=== PATIENT | male | born 1965 | race Caucasian/White ===

== ENCOUNTER 2017-11-11 12:48 | Inpatient (IN) | payer BC, SELFPAY ==
[2017-11-11] VITALS (12 sets, daily range): BP systolic 108–161; BP diastolic 75–119; PULSE 105–125; RESP 16–24; TEMP 37.4–38.6; O2SAT 92–98; BMI 33.0; BMI 32.3; BMI 32.4
--- NOTE | 2017-11-11 13:08 | EKG12_ITS ---
Test Reason : CP Blood Pressure : / mmHG Vent. Rate : 119 BPM Atrial Rate : 119 BPM P-R Int : 144 ms QRS Dur : 088 ms QT Int : 312 ms P-R-T Axes : 030 065 011 degrees QTc Int : 438 ms Sinus tachycardia Otherwise normal ECG Confirmed by ALE ENGLISH, SHAN ([id number]), newspaper or periodical editor WILMA BARBOZA ([id number] on 11/15/2017 3:17:05 PM Referred By: JOSE/CHERYL Confirmed By:SHAN AGUILERA MD
--- NOTE | 2017-11-11 13:08 | CT_ITS ---
STUDY: CT BRAIN WITHOUT CONTRAST REASON FOR EXAM: Male, 52 years old. Headache and neck pain RADIATION DOSAGE (If Supplied By Facility): CTDIvol = ( 44.99 ) mGy, DLP = ( 745.49 ) mGycm TECHNIQUE: Transaxial CT imaging of the brain was performed without administration of intravenous contrast material. Individualized dose optimization techniques were used for this CT. COMPARISON: None. FINDINGS: Normal soft tissue structures. Normal calvarium. Normal size ventricles and extra-axial spaces for the patient's age. Normal white matter tracts of the cerebral hemispheres. Normal basal ganglia and thalami. Normal brainstem. Normal cerebellum. There is no intracranial hemorrhage. There are no findings of an acute ischemic infarction. Normal visualized paranasal sinuses. CT/Brain/Head without Contrast IMPRESSION: Age-related changes, no acute findings Electronically Signed: Gary Majano MD at 14:09 EDT , Service support ,
--- NOTE | 2017-11-11 13:10 | RAD_ITS ---
STUDY: X-RAY CHEST REASON FOR EXAM: Male, 52 years old. Acute chest pain TECHNIQUE: Single AP portable view of the chest. COMPARISON: None. FINDINGS: EKG leads overlie the chest The lungs are clear and expanded. There is no demonstrated pleural abnormality. Normal size heart. Normal mediastinum and zenia. Normal visualized pulmonary arteries. Normal visualized aortic arch and descending thoracic aorta. Normal visualized thoracic spine. Normal visualized ribs, clavicles, and shoulders. There is no demonstrated abnormality of the visualized soft tissue structures of the upper abdomen. RAD/Chest 1 View (Portable) IMPRESSION: Normal x-ray examination of the chest. Electronically Signed: Gary Majano MD at 13:49 EDT , Service support ,
[2017-11-11] MEDS: Aspirin 81 MG TAB.CHEW 324 MG PO (13:37)
[2017-11-11 13:41] LABS: Absolute Lymphocyte Count 1.41 X10^3/ul (0.83-4.51); Absolute Neutrophil Count 13.6 X10^3/uL (2.0-7.7); Basophil# 0.02 X10^3/uL; Basophil% 0.1 % (0-1); Eosinophil# 0.03 X10^3/uL; Eosinophils% 0.2 % (0-5); Hematocrit 47.9 % (40-54); Hemoglobin 16.5 g/dl (13.0-16.5); Lymphocyte # 1.41 X10^3/ul (4.0); Lymphocyte % 8.6 % (19-41); Mean Corp Hgb Conc 34.4 g/gl (32-36); Mean Corpuscular Volume 89.9 fL (80-94); Mean Platelet Vol. 10.2 fl (6.2-12.0); Monocyte# 1.38 X10^3/uL; Monocyte% 8.4 % (0-10); Neutrophil # 13.59 X10^3/uL (2.7-7.7); Neutrophil % 82.5 % (47-70); Platelet Count 200 K/mm3 (150-450); RBC Distribution Width CV 13.5 % (11.6-14.6); RBC Distribution Width SD 44.7 fl (35.1-43.9); Red Blood Count 5.33 M/mm3 (4.6-6.2); White Blood Count 16.5 K/mm3 (4.4-11.0)
[2017-11-11 13:43] LABS: POSITIVE COUNT NO; POSITIVE DIFFERENTIAL NO; POSITIVE MORPHOLOGY NO
[2017-11-11 13:56] LABS: Anion Gap 3 (5-15); BUN 16 mg/dL (7-18); Calcium,Total 9.1 mg/dL (8.5-10.1); Chloride 105 mmol/L (98-107); Creatinine, Serum 1.07 mg/dL (0.70-1.30); EST Glomerular Filtration Rate 78 mL/min (>60); Est Glom Filt Rate - Afr Amer 94 mL/min (>60); Estimated Creatinine Clearance 85.28 ml/min; Glucose 143 mg/dL (74-106); Potassium 4.6 mmol/L (3.5-5.1); Sodium Level 136 mmol/L (136-145)
--- NOTE | 2017-11-11 14:06 | CT_ITS ---
STUDY: CTA NECK WITH CONTRAST REASON FOR EXAM: Male, 52 years old. HEAD AND NECK PAIN/RADON EXPOSURE/FINGERS NUMB AND PURPLE. RADIATION DOSAGE (If Supplied By Facility): CTDIvol = ( 17.52 ) mGy, DLP = ( 1579.58 ) mGycm TECHNIQUE: CT angiography with multi-detector data acquisition was performed from the aortic arch to the skull base following intravenous administration of 100ML ml of Isovue 370 contrast. MIP images were reconstructed from the axial data set. Post-processing of the angiographic images was performed, with multiplanar reformation and 3D reconstruction. Individualized dose optimization techniques were used for this CT. COMPARISON: None. FINDINGS: AORTIC ARCH: Normal visualized aortic arch. Normal origins of the brachiocephalic, left common carotid, and left subclavian arteries. RIGHT CAROTID ARTERIES: Normal right common carotid artery (CCA). Normal right common carotid bulb. Normal origin of the right internal carotid (ICA) artery without a hemodynamically significant stenosis. Normal visualized cervical portion of the right internal carotid artery. Normal origin of the right external carotid artery (ECA). LEFT CAROTID ARTERIES: Normal left common carotid artery (CCA). Normal left common carotid bulb. Normal origin of the left internal carotid (ICA) artery without a hemodynamically significant stenosis. Normal visualized cervical portion of the left internal carotid artery. Normal origin of the left external carotid artery (ECA). VERTEBRAL ARTERIES: Normal bilateral vertebral arteries. CT/CTA Neck W/WO Contrast IMPRESSION: Normal bilateral cervical carotid and vertebral arteries. Electronically Signed: Marianne Yost MD at 15:47 EDT Tel , Service support ,
--- NOTE | 2017-11-11 14:06 | CT_ITS ---
STUDY: CTA CHEST REASON FOR EXAM: Male, 52 years old. Head and neck pain, fingers numb and purple RADIATION DOSAGE (If Supplied By Facility): CTDIvol = ( 17.52 ) mGy, DLP = ( 1579.58 ) mGycm TECHNIQUE: The examination was performed with the intravenous administration of 100 ml of Isovue 370 contrast material. Post-processing of the angiographic images was performed, with multiplanar reformation and 3D reconstruction. Individualized dose optimization techniques were used for this CT. COMPARISON: 06/11/2014 FINDINGS: Normal enhancement of the main pulmonary artery and right and left pulmonary arteries. There is limited enhancement of the bilateral peripheral pulmonary arteries. There is no demonstrated pulmonary embolism. Normal thoracic aorta and visualized great vessels. There is no demonstrated aortic dissection. Normal heart and pericardium. Normal mediastinum. Normal hilar regions. Normal visualized trachea and bronchi. The lungs are well expanded. Normal pulmonary parenchyma. There is a 4 mm subpleural nodule along the right minor fissure. Normal pleura. Normal chest wall structures. There are degenerative changes of thoracic spine. Normal visualized upper abdomen. CT/CTA Chest W/WO Contrast IMPRESSION: No large or central pulmonary embolus. Somewhat limited enhancement of the peripheral pulmonary arteries. 4 mm subpleural nodule along the minor fissure on the right. This is unchanged from the prior study. Electronically Signed: Polo Gould DO at 15:53 EDT Tel , Service support ,
--- NOTE | 2017-11-11 14:06 | CT_ITS ---
STUDY: CTA OF THE BRAIN REASON FOR EXAM: Male, 52 years old. Pain. Numbness. RADIATION DOSAGE (If Supplied By Facility): CTDIvol = ( 17.52 ) mGy, DLP = ( 1579.58 ) mGycm TECHNIQUE: CT angiography was performed with a multi-detector CT scanner. Data acquisition was obtained from the skull base through the vertex following intravenous administration of intravenous. MIP images were reconstructed from the axial data set. Post-processing of the angiographic images was performed, with multiplanar reformation and 3D reconstruction. Individualized dose optimization techniques were used for this CT. COMPARISON: CT brain 11/11/2017 FINDINGS: Normal bilateral petrous carotid arteries. Normal right cavernous carotid artery with a normal supraclinoid bifurcation. Normal left cavernous carotid artery with a normal supraclinoid bifurcation. Normal right A1 segments of the anterior cerebral artery. Normal left A1 segments of the anterior cerebral artery. Normal intact anterior communicating artery (ACOM). Normal bilateral A2 segments of the anterior cerebral arteries. Normal right M1 and M2 segments of the middle cerebral arteries, with a normal M1 bifurcation. Normal left M1 and M2 segments of the middle cerebral arteries, with a normal M1 bifurcation. Normal right posterior communicating artery (PCOM). Normal left posterior communicating artery (PCOM). Normal bilateral vertebral arteries. Normal basilar artery with a normal basilar bifurcation. The visualized bilateral superior cerebellar (SCA) arteries are normal. Normal bilateral P1, P2 and visualized P3 segments of the posterior cerebral arteries. There is no demonstrated aneurysm of the [place]. There is no demonstrated abnormality of the visualized brain. CT/CTA Head W/WO Contrast IMPRESSION: Normal [place] without a demonstrated aneurysm or hemodynamically significant stenosis. Electronically Signed: Marcelino Tapia, at 16:00 EDT Tel , Service support ,
[2017-11-11] MEDS: Acetaminophen 500 MG Tablet 1000 MG PO (16:23)
--- NOTE | 2017-11-11 16:24 | ED.DCSUM_ITS ---
- ER Visit Summary Date of Service: 11/11/17 Chief Complaint: Multiple complaints History of Present Illness: The patient is a 52 M who presents with multiple complaints. His main complaint on presentation is head pains. He has a history of diabetes and ray nods. He states that last night he had sharp pain in the anterior left side of the neck he then developed a diffuse headache. He states that both of his upper extremities went numb and his hands turned purple. He states the color has returned and he only has occasional paresthesias currently. His neck pain has also resolved. He does still continue to have a headache. He also states that this morning he developed substernal chest pain which was dull and lasted a couple of minutes. That has also since resolved. He denies fevers chills sweats shortness of breath cough abdominal pain nausea vomiting diarrhea or rash. Physical Examination: Temperature 99.4 initial blood pressure 148/119 heart rate 125 pulse ox 96% Moist mucous membranes Heart regular rhythm tachycardia no carotid bruit Lungs are clear Abdomen soft nontender and nondistended Patient has brisk capillary refill of the hands with easily palpable radial pulses Skin is warm and dry Alert and oriented No focal or lateralizing neurological deficits normal strength and sensation. Test Results: EKG shows sinus rhythm at a rate of 119. Laboratory studies returned notable for white blood cell count 16.5 and negative troponin. Chest x -ray was normal. CTA of the chest neck and head are all normal. Emergency Department Course and Treatment: Given patient's initial presentation with chest pain neck pain and neurological symptoms I was concerned for possible vascular cause including aortic and or carotid dissection. CTA of the chest and neck was obtained and because of his neurological symptoms in his upper extremities we did also obtain CT of the head which is all normal. On reevaluation the patient was complaining of feeling hot and felt warm to the touch. A repeat temperature is 101.4 orally. He is now also complaining of diffuse abdominal pain. Repeat abdominal exam he has some diffuse abdominal tenderness but no guarding or rebound. He also now notes dysuria. Given leukocytosis tachycardia and fever he was empirically treated with IV Zosyn. We did add on further laboratory studies including hepatic function lipase and urinalysis. He will need admitted. Treatment Plan: [] Disposition: Admit Impression: Chest pain Headache Abdominal pain Upper extremity paresthesias This note was generated with [facility] dictation software. It may contain incorrect words, spelling, and punctuation that were not noted in review of the chart prior to signing ED Disposition - Plan for ED Patient: Chief Complaint: Chest Pain Referrals: Viktor Parisi [Primary Care Provider] -
[2017-11-11 16:41] LABS: Mucous, Urine 0 SEEN /hpf (<or=2+); Squamous Epithelial Cells - UA 0 SEEN /hpf (0-5)
[2017-11-11 16:46] LABS: Color, Urine Yellow (Yellow); Glucose, Dipstick Normal (Normal); Ketone-Dipstick 5 mg/dl (Negative); Leukocyte Esterase-Dipstick 100 /ul (Negative); Nitrite-Dipstick Positive (Negative); Occult Blood-Urine 10 /ul (Negative); Protein-Dipstick Negative (Negative); Urine Bilirubin Dipstick Negative (Negative); Urine Clarity Cloudy (Clear); Urine Urobilinogen Normal (Normal); Urine pH 6.5 (5.0 - 8.0)
--- NOTE | 2017-11-11 16:53 | CT_ITS ---
STUDY: CT ABDOMEN AND PELVIS WITHOUT CONTRAST REASON FOR EXAM: Male, 52 years old. Abdominal pain. RADIATION DOSAGE (If Supplied By Facility): CTDIvol = ( 20.37 ) mGy, DLP = ( 1048.36 ) mGycm TECHNIQUE: Transaxial images were obtained from the dome of the diaphragm to the symphysis pubis without oral contrast, and without intravenous contrast. Sagittal and coronal images were reconstructed. Individualized dose optimization techniques were used for this CT. COMPARISON: None. FINDINGS: Evaluation of the abdominal viscera is limited in the absence of intravenous contrast. There are no calcified gallstones present. The liver is low in density, consistent with fatty infiltration. The spleen is normal in size. The pancreas demonstrates an unremarkable unenhanced appearance. The adrenal glands are within normal limits. The kidneys are excreting contrast from the prior injection. This obscures evaluation for renal stones. There is no hydronephrosis. Normal visualized stomach. There is no bowel obstruction or inflammation. The appendix is visualized and appears normal. There are postsurgical changes noted from prior bilateral inguinal hernia repair. The aorta is normal in caliber. There is no abdominal or pelvic free air, free fluid, fluid collection or lymphadenopathy. There are no destructive osseous lesions. CT/Abdomen/Pelvis without Cont IMPRESSION: No bowel obstruction or inflammation. Normal appendix. Kidneys are excreting contrast from a prior injection. This obscures evaluation for renal stones. No hydronephrosis. Fatty liver. Electronically Signed: Marcelino Tapia, at 17:55 EDT Tel , Service support ,
[2017-11-11 17:04] LABS: AST(SGOT) 41 U/L (15-37); Alanine Aminotransfer ALT/SGPT 95 U/L (16-61); Albumin, Serum 4.1 g/dL (3.2-5.0); Alkaline Phosphatase 61 U/L (45-117); Globulin 3.8 g/dL (2.2-4.2); Protein, Total 7.9 g/dL (6.4-8.2)
[2017-11-11 17:06] LABS: Bacteria RARE /hpf (None Seen); Red Blood Cells-Urine 0-5 SEEN /hpf (0-5); White Blood Cells 10-25 SEEN /hpf (0-5)
[2017-11-11 17:20] LABS: Lipase 426 U/L (73-393)
[2017-11-11 17:36] LABS: Lactic Acid 1.4 mmol/L (0.4-2.0)
--- NOTE | 2017-11-11 18:41 | PCM.HP.STD ---
Problem List (1) GERD (gastroesophageal reflux disease) Status: Chronic (2) Type 2 diabetes mellitus Status: Chronic History of Present Illness Date of Admission: 11/11/17 Chief Complaint: Multiple complaints. The patient is a 52 year old M with past medical history as mentioned above presented to the medicine because of multiple complaints. His main presenting complaint was left-sided neck pain. This pain started last night around 8 PM, it is in the left side of the neck just below the left ear, sharp pain, 7 out of 10 in severity, lasted for few seconds to 1 minute, no aggravating or relieving factors, associated with dizziness and headache and without other associated symptoms. He mentioned that that pain lasted for a few seconds and he was able to sit down but shortly after, he started to feel dizzy and lightheaded. He denied syncope or presyncope. He mentioned that he has been having intermittent chest pain that has been going on for some time. He was not able to provide more details about that chest pain. He mentioned that whenever he gets the chest pain, he has tingling and numbness of both upper extremities. He denied focal arm or leg weakness. He denied lower extremity numbness or tingling. He denied blurred vision or slurred speech. Also, he complains of vague lower abdominal pain that has been going on for long time. In the emergency department, he had a spike of fever, was tachycardic, blood pressure was slightly elevated and pulse ox maintained on room air. His routine blood work is remarkable for leukocytosis, otherwise normal. His lactic acid was normal. LFT revealed total bilirubin of 1.60 and slightly elevated liver transaminases. Troponin was negative. Lipase was 426. Urinalysis revealed cloudy urine, positive for nitrite, leukocyte esterase and there was 10-25 WBCs and rare bacteria. CT scan brain showed no acute findings. Chest x-ray showed no acute infiltrate, consolidation or effusion. EKG revealed sinus tachycardia, no acute ischemic changes. CTA of the head and neck revealed no evidence of hemodynamically significant vascular disease. CTA of the chest revealed no evidence of PE or dissection. CT scan abdomen and pelvis without contrast showed no acute intra-abdominal pathology, revealed fatty liver, normal pancreas. He is being admitted for acute cystitis with sepsis as well as chest pain and tachycardia. Past Medical History Past Medical History (Chronic Problems): Chronic Problems GERD (gastroesophageal reflux disease) (Chronic) Type 2 diabetes mellitus (Chronic) Allergies No Known Allergies Allergy (Verified 06/14/14 15:37) Home Medications: Ambulatory Orders Medication Instructions Recorded Omeprazole [Prilosec] 20 mg PO BID 06/11/14 Metformin HCl [Glucophage] 500 mg PO DAILY #30 tablet 07/07/14 Surgical History: herniorrhaphy Psychiatric History: No pertinent psych hx Lives: Spouse/ Significant Other Smoking Status: Never smoker Alcohol: None Drugs: None - *Family History Maternal History Items: No pertinent history Paternal History Items: No pertinent history Review of Systems Constitutional: Reports: Fever. Denies: Anorexia, Chills, Weakness Eyes: Denies: Blurred vision, Double vision, Drainage, Redness HEENT: Denies: Difficulty Hearing, Ear Pain, Eye Pain, Nasal Congestion, Sore Throat Cardiovascular: Reports: Chest Pain, Light Headedness. Denies: Chest Pressure, Edema, Heaviness, Orthopnea, Paroxysmal Noc. Dyspnea, Syncope Respiratory: Denies: Cough, Hemoptysis, Pleuritic Pain, Shortness of Breath, Sputum production, Wheezing Gastrointestinal: Reports: Abdominal Pain. Denies: Constipation, Diarrhea, Nausea, Vomiting Genitourinary: Reports: Dysuria. Denies: Frequency, Hematuria Musculoskeletal: Reports: Neck Pain. Denies: Arm Pain, Back Pain, Foot Pain Skin: Denies: Dryness, Rash Neurological: Reports: Headaches, Numbness, Tingling. Denies: Balance problems, Double vision, Change in Speech, Slurred speech, Confusion, Focal weakness Psychiatric: Denies: Anxiety, Depression Endocrine: Denies: Change in Body Habitus, Polydipsia VTE Information - Inpt Only VTE Present on Admission: No VTE Mechan Device Prophylaxis: None VTE Pharm Prophylaxis ordered?: Yes - Physical Exam General: Alert, Oriented x3, Cooperative, No apparent distress HEENT: Atraumatic, PERRLA, EOMI Oral: Moist Mucosa, No Gingival or Mucosal Lesions/ Ulcerations Neck: Supple, No JVD, Negative Carotid Bruits, Trachea Midline, Thyroid Normal Size and Texture Lungs: Clear to auscultation, No rhonchi, No wheeze, No rales, Diminished Cardiovascular: Regular rate, Regular Rhythm, Normal S1, Normal S2, No murmurs, PMI Normal, Tachycardic Abdomen: Bowel Sounds Present, Soft, Non Tender, Non-Distended, No Hepato-splenomegaly Extremities: No clubbing, No cyanosis, No edema Skin: No rashes, No breakdown Lymphatic: No Cervical, Supraclavicular, or Inguinal Adenopathy Neurological: Cranial nerves II-XII grossly intact, Motor Exam 5/5 strength throughout Psych/Mental Status: Normal Affect, Appropriate, Alert and oriented to time, place, person, mood and affect Vital Signs Temp Pulse Resp BP Pulse Ox 101.4 F H 109 H 20 H 108/78 94 11/11/17 16:18 11/11/17 18:33 11/11/17 18:33 11/11/17 18:33 11/11/17 18:33 Oxygen Delivery Method Room Air Weight: 230 lb Body Mass Index (BMI) 33.0 Finger Stick Blood Glucose 139 Laboratory Tests Past 24 Hrs 11/11/17 11/11/17 11/11/17 13:35 13:35 13:35 WBC 16.5 H RBC 5.33 Hgb 16.5 Hct 47.9 MCV 89.9 MCH 31.0 MCHC 34.4 RDW 13.5 RDW Differential 44.7 H Plt Count 200 MPV 10.2 Immature Gran % (Auto) 0.200 Neut % (Auto) 82.5 H Lymph % (Auto) 8.6 L [place] % (Auto) 8.4 Eos % (Auto) 0.2 Baso % (Auto) 0.1 Absolute Neuts (auto) 13.6 H Absolute Lymphs (auto) 1.41 Total Counted Not Reportable Sodium 136 Potassium 4.6 Chloride 105 Carbon Dioxide 28.0 Anion Gap 3 L BUN 16 Creatinine 1.07 Estim Creat Clear Calc 85.28 Est GFR (MDRD) Af Amer 94 Est GFR (MDRD) Non-Af 78 BUN/Creatinine Ratio 15.0 Glucose 143 H Lactic Acid Calcium 9.1 Total Bilirubin 1.60 H Direct Bilirubin 0.30 AST 41 H ALT 95 H Alkaline Phosphatase 61 Troponin I < 0.02 Total Protein 7.9 Albumin 4.1 Globulin 3.8 Lipase Urine Color Urine Clarity Urine pH Ur Specific [place] Urine Protein Urine Glucose (UA) Urine Ketones Urine Occult Blood Urine Nitrite Urine Bilirubin Urine Urobilinogen Ur Leukocyte Esterase Urine RBC Urine WBC Ur Squamous Epith Cells Urine Bacteria Urine Mucus 11/11/17 11/11/17 11/11/17 13:35 16:34 17:00 WBC RBC Hgb Hct MCV MCH MCHC RDW RDW Differential Plt Count MPV Immature Gran % (Auto) Neut % (Auto) Lymph % (Auto) [place] % (Auto) Eos % (Auto) Baso % (Auto) Absolute Neuts (auto) Absolute Lymphs (auto) Total Counted Sodium Potassium Chloride Carbon Dioxide Anion Gap BUN Creatinine Estim Creat Clear Calc Est GFR (MDRD) Af Amer Est GFR (MDRD) Non-Af BUN/Creatinine Ratio Glucose Lactic Acid 1.4 Calcium Total Bilirubin Direct Bilirubin AST ALT Alkaline Phosphatase Troponin I Total Protein Albumin Globulin Lipase 426 H Urine Color Yellow Urine Clarity Cloudy Urine pH 6.5 Ur Specific [place] 1.010 Urine Protein Negative Urine Glucose (UA) Normal Urine Ketones 5 H Urine Occult Blood 10 H Urine Nitrite Positive H Urine Bilirubin Negative Urine Urobilinogen Normal Ur Leukocyte Esterase 100 H Urine RBC 0-5 SEEN Urine WBC 10-25 SEEN Ur Squamous Epith Cells 0 SEEN Urine Bacteria RARE Urine Mucus 0 SEEN Clinical Impression(s) from Imaging Studies Brain CT 11/11/17 13:08 IMPRESSION: Age-related changes, no acute findings Electronically Signed: Gary Majano MD at 14:09 EDT , Service support , Chest X-Ray 11/11/17 13:10 IMPRESSION: Normal x-ray examination of the chest. Electronically Signed: Gary Majano MD at 13:49 EDT , Service support , Chest CTA 11/11/17 14:06 IMPRESSION: No large or central pulmonary embolus. Somewhat limited enhancement of the peripheral pulmonary arteries. 4 mm subpleural nodule along the minor fissure on the right. This is unchanged from the prior study. Electronically Signed: Polo Gould DO at 15:53 EDT Tel , Service support , Head CTA 11/11/17 14:06 IMPRESSION: Normal [place] without a demonstrated aneurysm or hemodynamically significant stenosis. Electronically Signed: Marcelino Tapia at 16:00 EDT Tel , Service support , Neck CTA 11/11/17 14:06 IMPRESSION: Normal bilateral cervical carotid and vertebral arteries. Electronically Signed: Marianne Yost MD at 15:47 EDT Tel , Service support , Abdomen/Pelvis CT 11/11/17 16:53 IMPRESSION: No bowel obstruction or inflammation. Normal appendix. Kidneys are excreting contrast from a prior injection. This obscures evaluation for renal stones. No hydronephrosis. Fatty liver. Electronically Signed: Marcelino Tapia, at 17:55 EDT Tel , Service support , Assessment/Plan This is a 52 years old male patient presented to the emergency room because of multiple complaints including left-sided neck pain, intermittent chest pain, numbness and tingling of both arms as well as lower abdominal pain and he was found to have acute cystitis with sepsis and is being admitted for evaluation for chest pain. #1 acute cystitis/sepsis: Urinalysis reviewed, patient was febrile and he does have leukocytosis. Lactic acid was normal. He is tachycardic but blood pressure stable. CT scan abdomen and pelvis was unremarkable. Blood cultures done, received 1 dose of IV Zosyn. Plan: Admit to PCU, cardiac monitoring, stat urine culture, IV Rocephin every 12 hours, IV fluids, Tylenol as needed, PT OT evaluation and treatment. #2 Intermittent chest pain/left sided neck pain: It is atypical. EKG revealed sinus tachycardia, no acute ischemic changes. Troponin was negative. CTA chest has been negative for PE or dissection. His only risk factor is diabetes. Plan: Cardiac monitoring, serial cardiac enzymes, fasting lipid profile, daily aspirin, nuclear stress test tomorrow morning if cardiac enzymes are negative. #3 tachycardia: Could be explained by acute cystitis and sepsis. Plan: IV fluids, IV antibiotics, TSH. #4 elevated LFT/lipase: CT scan abdomen revealed fatty liver, no gallstones, normal pancreas and spleen. Total bilirubin is slightly elevated as well as liver transaminases. Direct bilirubin and alkaline phosphatase are normal. Plan: IV fluids, IV pain medication if needed, repeat CMP and lipase tomorrow morning. #5 bilateral upper extremity paresthesia: Vague symptom, unclear etiology. At this time, it is not typical for stroke or TIA because it is bilateral. CT scan brain as well as CTA of the head and neck were unremarkable. At this time, no indication for further workup. If patient symptoms persist, may consider MRI brain. #6 type 2 diabetes mellitus: ADA diet, Accu-Cheks, insulin sliding scale, hold metformin. #7 GERD: Continue PPI. #8 DVT prophylaxis: Subcu Lovenox. This note was generated with [employer] dictation software. It may contain incorrect words, spelling, and punctuation that were not noted in checking the note before signing. Code Visit Inpatient E&M: 78838 Init Hosp L3
--- NOTE | 2017-11-11 18:49 | HP.PCM_ITS ---
Problem List (1) GERD (gastroesophageal reflux disease) Status: Chronic (2) Type 2 diabetes mellitus Status: Chronic History of Present Illness Date of Admission: 11/11/17 Chief Complaint: Multiple complaints. The patient is a 52 year old M with past medical history as mentioned above presented to the medicine because of multiple complaints. His main presenting complaint was left-sided neck pain. This pain started last night around 8 PM, it is in the left side of the neck just below the left ear, sharp pain, 7 out of 10 in severity, lasted for few seconds to 1 minute, no aggravating or relieving factors, associated with dizziness and headache and without other associated symptoms. He mentioned that that pain lasted for a few seconds and he was able to sit down but shortly after, he started to feel dizzy and lightheaded. He denied syncope or presyncope. He mentioned that he has been having intermittent chest pain that has been going on for some time. He was not able to provide more details about that chest pain. He mentioned that whenever he gets the chest pain, he has tingling and numbness of both upper extremities. He denied focal arm or leg weakness. He denied lower extremity numbness or tingling. He denied blurred vision or slurred speech. Also, he complains of vague lower abdominal pain that has been going on for long time. In the emergency department, he had a spike of fever, was tachycardic, blood pressure was slightly elevated and pulse ox maintained on room air. His routine blood work is remarkable for leukocytosis, otherwise normal. His lactic acid was normal. LFT revealed total bilirubin of 1.60 and slightly elevated liver transaminases. Troponin was negative. Lipase was 426. Urinalysis revealed cloudy urine, positive for nitrite, leukocyte esterase and there was 10-25 WBCs and rare bacteria. CT scan brain showed no acute findings. Chest x-ray showed no acute infiltrate, consolidation or effusion. EKG revealed sinus tachycardia, no acute ischemic changes. CTA of the head and neck revealed no evidence of hemodynamically significant vascular disease. CTA of the chest revealed no evidence of PE or dissection. CT scan abdomen and pelvis without contrast showed no acute intra-abdominal pathology, revealed fatty liver, normal pancreas. He is being admitted for acute cystitis with sepsis as well as chest pain and tachycardia. Past Medical History Past Medical History (Chronic Problems): Chronic Problems GERD (gastroesophageal reflux disease) (Chronic) Type 2 diabetes mellitus (Chronic) Allergies No Known Allergies Allergy (Verified 06/14/14 15:37) Home Medications: Ambulatory Orders Medication Instructions Recorded Omeprazole [Prilosec] 20 mg PO BID 06/11/14 Metformin HCl [Glucophage] 500 mg PO DAILY #30 tablet 07/07/14 Surgical History: herniorrhaphy Psychiatric History: No pertinent psych hx Lives: Spouse/ Significant Other Smoking Status: Never smoker Alcohol: None Drugs: None - *Family History Maternal History Items: No pertinent history Paternal History Items: No pertinent history Review of Systems Constitutional: Reports: Fever. Denies: Anorexia, Chills, Weakness Eyes: Denies: Blurred vision, Double vision, Drainage, Redness HEENT: Denies: Difficulty Hearing, Ear Pain, Eye Pain, Nasal Congestion, Sore Throat Cardiovascular: Reports: Chest Pain, Light Headedness. Denies: Chest Pressure, Edema, Heaviness, Orthopnea, Paroxysmal Noc. Dyspnea, Syncope Respiratory: Denies: Cough, Hemoptysis, Pleuritic Pain, Shortness of Breath, Sputum production, Wheezing Gastrointestinal: Reports: Abdominal Pain. Denies: Constipation, Diarrhea, Nausea, Vomiting Genitourinary: Reports: Dysuria. Denies: Frequency, Hematuria Musculoskeletal: Reports: Neck Pain. Denies: Arm Pain, Back Pain, Foot Pain Skin: Denies: Dryness, Rash Neurological: Reports: Headaches, Numbness, Tingling. Denies: Balance problems , Double vision, Change in Speech, Slurred speech, Confusion, Focal weakness Psychiatric: Denies: Anxiety, Depression Endocrine: Denies: Change in Body Habitus, Polydipsia VTE Information - Inpt Only VTE Present on Admission: No VTE Mechan Device Prophylaxis: None VTE Pharm Prophylaxis ordered?: Yes - Physical Exam General: Alert, Oriented x3, Cooperative, No apparent distress HEENT: Atraumatic, PERRLA, EOMI Oral: Moist Mucosa, No Gingival or Mucosal Lesions/ Ulcerations Neck: Supple, No JVD, Negative Carotid Bruits, Trachea Midline, Thyroid Normal Size and Texture Lungs: Clear to auscultation, No rhonchi, No wheeze, No rales, Diminished Cardiovascular: Regular rate, Regular Rhythm, Normal S1, Normal S2, No murmurs, PMI Normal, Tachycardic Abdomen: Bowel Sounds Present, Soft, Non Tender, Non-Distended, No Hepato- splenomegaly Extremities: No clubbing, No cyanosis, No edema Skin: No rashes, No breakdown Lymphatic: No Cervical, Supraclavicular, or Inguinal Adenopathy Neurological: Cranial nerves II-XII grossly intact, Motor Exam 5/5 strength throughout Psych/Mental Status: Normal Affect, Appropriate, Alert and oriented to time, place, person, mood and affect Vital Signs Temp Pulse Resp BP Pulse Ox 101.4 F H 109 H 20 H 108/78 94 11/11/17 16:18 11/11/17 18:33 11/11/17 18:33 11/11/17 18:33 11/11/17 18:33 Oxygen Delivery Method Room Air Weight: 230 lb Body Mass Index (BMI) 33.0 Finger Stick Blood Glucose 139 Laboratory Tests Past 24 Hrs 11/11/17 11/11/17 11/11/17 13:35 13:35 13:35 WBC 16.5 H RBC 5.33 Hgb 16.5 Hct 47.9 MCV 89.9 MCH 31.0 MCHC 34.4 RDW 13.5 RDW Differential 44.7 H Plt Count 200 MPV 10.2 Immature Gran % (Auto) 0.200 Neut % (Auto) 82.5 H Lymph % (Auto) 8.6 L [place] % (Auto) 8.4 Eos % (Auto) 0.2 Baso % (Auto) 0.1 Absolute Neuts (auto) 13.6 H Absolute Lymphs (auto) 1.41 Total Counted Not Reportable Sodium 136 Potassium 4.6 Chloride 105 Carbon Dioxide 28.0 Anion Gap 3 L BUN 16 Creatinine 1.07 Estim Creat Clear Calc 85.28 Est GFR (MDRD) Af Amer 94 Est GFR (MDRD) Non-Af 78 BUN/Creatinine Ratio 15.0 Glucose 143 H Lactic Acid Calcium 9.1 Total Bilirubin 1.60 H Direct Bilirubin 0.30 AST 41 H ALT 95 H Alkaline Phosphatase 61 Troponin I < 0.02 Total Protein 7.9 Albumin 4.1 Globulin 3.8 Lipase Urine Color Urine Clarity Urine pH Ur Specific [place] Urine Protein Urine Glucose (UA) Urine Ketones Urine Occult Blood Urine Nitrite Urine Bilirubin Urine Urobilinogen Ur Leukocyte Esterase Urine RBC Urine WBC Ur Squamous Epith Cells Urine Bacteria Urine Mucus 11/11/17 11/11/17 11/11/17 13:35 16:34 17:00 WBC RBC Hgb Hct MCV MCH MCHC RDW RDW Differential Plt Count MPV Immature Gran % (Auto) Neut % (Auto) Lymph % (Auto) [place] % (Auto) Eos % (Auto) Baso % (Auto) Absolute Neuts (auto) Absolute Lymphs (auto) Total Counted Sodium Potassium Chloride Carbon Dioxide Anion Gap BUN Creatinine Estim Creat Clear Calc Est GFR (MDRD) Af Amer Est GFR (MDRD) Non-Af BUN/Creatinine Ratio Glucose Lactic Acid 1.4 Calcium Total Bilirubin Direct Bilirubin AST ALT Alkaline Phosphatase Troponin I Total Protein Albumin Globulin Lipase 426 H Urine Color Yellow Urine Clarity Cloudy Urine pH 6.5 Ur Specific [place] 1.010 Urine Protein Negative Urine Glucose (UA) Normal Urine Ketones 5 H Urine Occult Blood 10 H Urine Nitrite Positive H Urine Bilirubin Negative Urine Urobilinogen Normal Ur Leukocyte Esterase 100 H Urine RBC 0-5 SEEN Urine WBC 10-25 SEEN Ur Squamous Epith Cells 0 SEEN Urine Bacteria RARE Urine Mucus 0 SEEN Clinical Impression(s) from Imaging Studies Brain CT 11/11/17 13:08 IMPRESSION: Age-related changes, no acute findings Electronically Signed: Gary Majano MD at 14:09 EDT , Service support , Chest X-Ray 11/11/17 13:10 IMPRESSION: Normal x-ray examination of the chest. Electronically Signed: Gary Majano MD at 13:49 EDT , Service support , Chest CTA 11/11/17 14:06 IMPRESSION: No large or central pulmonary embolus. Somewhat limited enhancement of the peripheral pulmonary arteries. 4 mm subpleural nodule along the minor fissure on the right. This is unchanged from the prior study. Electronically Signed: Polo Gould DO at 15:53 EDT Tel , Service support , Head CTA 11/11/17 14:06 IMPRESSION: Normal ute of [place] without a demonstrated aneurysm or hemodynamically significant stenosis. Electronically Signed: Marcelino Tapia at 16:00 EDT Tel , Service support , Neck CTA 11/11/17 14:06 IMPRESSION: Normal bilateral cervical carotid and vertebral arteries. Electronically Signed: Marianne Yost MD at 15:47 EDT Tel , Service support , Abdomen/Pelvis CT 11/11/17 16:53 IMPRESSION: No bowel obstruction or inflammation. Normal appendix. Kidneys are excreting contrast from a prior injection. This obscures evaluation for renal stones. No hydronephrosis. Fatty liver. Electronically Signed: Marcelino Tapia, at 17:55 EDT Tel , Service support , Assessment/Plan This is a 52 years old male patient presented to the emergency room because of multiple complaints including left-sided neck pain, intermittent chest pain, numbness and tingling of both arms as well as lower abdominal pain and he was found to have acute cystitis with sepsis and is being admitted for evaluation for chest pain. #1 acute cystitis/sepsis: Urinalysis reviewed, patient was febrile and he does have leukocytosis. Lactic acid was normal. He is tachycardic but blood pressure stable. CT scan abdomen and pelvis was unremarkable. Blood cultures done, received 1 dose of IV Zosyn. Plan: Admit to PCU, cardiac monitoring, stat urine culture, IV Rocephin every 12 hours, IV fluids, Tylenol as needed, PT OT evaluation and treatment. #2 Intermittent chest pain/left sided neck pain: It is atypical. EKG revealed sinus tachycardia, no acute ischemic changes. Troponin was negative. CTA chest has been negative for PE or dissection. His only risk factor is diabetes. Plan: Cardiac monitoring, serial cardiac enzymes, fasting lipid profile, daily aspirin, nuclear stress test tomorrow morning if cardiac enzymes are negative. #3 tachycardia: Could be explained by acute cystitis and sepsis. Plan: IV fluids, IV antibiotics, TSH. #4 elevated LFT/lipase: CT scan abdomen revealed fatty liver, no gallstones, normal pancreas and spleen. Total bilirubin is slightly elevated as well as liver transaminases. Direct bilirubin and alkaline phosphatase are normal. Plan: IV fluids, IV pain medication if needed, repeat CMP and lipase tomorrow morning. #5 bilateral upper extremity paresthesia: Vague symptom, unclear etiology. At this time, it is not typical for stroke or TIA because it is bilateral. CT scan brain as well as CTA of the head and neck were unremarkable. At this time , no indication for further workup. If patient symptoms persist, may consider MRI brain. #6 type 2 diabetes mellitus: ADA diet, Accu-Cheks, insulin sliding scale, hold metformin. #7 GERD: Continue PPI. #8 DVT prophylaxis: Subcu Lovenox. This note was generated with Octmami dictation software. It may contain incorrect words, spelling, and punctuation that were not noted in checking the note before signing. Code Visit Inpatient E&M: 92995 Init Hosp L3
[2017-11-11] MEDS: 0.9% Normal Saline 1,000 ML 100 ML IV (20:34)
[2017-11-11 21:13] LABS: Thyroid Stim Hormone (TSH) 0.53 uIU/mL (0.358-3.74)
[2017-11-11] MEDS: Acetaminophen 325 MG Tablet 650 MG PO (21:23)
[2017-11-11 22:41] LABS: Bedside Glucose 176 mg/dL (70-110)
[2017-11-11] MEDS: Ceftriaxone 1 GM/50 ML BAG IV (22:41)
[2017-11-12] VITALS (14 sets, daily range): BP systolic 118–135; BP diastolic 71–79; PULSE 90–111; RESP 14–18; TEMP 36.9–38.3; O2SAT 92–98
[2017-11-12] MEDS: Acetaminophen 325 MG Tablet 650 MG PO ×3 (02:07→20:13)
[2017-11-12 03:22] LABS: Absolute Lymphocyte Count 1.69 X10^3/ul (0.83-4.51); Absolute Neutrophil Count 17.1 X10^3/uL (2.0-7.7); Basophil# 0.02 X10^3/uL; Basophil% 0.1 % (0-1); Differential Indicated SCAN CRITERIA MET; Eosinophil# 0.01 X10^3/uL; Hematocrit 45.3 % (40-54); Hemoglobin 15.6 g/dl (13.0-16.5); Lymphocyte # 1.69 X10^3/ul (4.0); Mean Corp Hgb Conc 34.4 g/gl (32-36); Mean Corpuscular Hgb 31.2 pg (27.0-32.0); Mean Corpuscular Volume 90.6 fL (80-94); Mean Platelet Vol. 10.6 fl (6.2-12.0); Monocyte# 2.15 X10^3/uL; Monocyte% 10.2 % (0-10); Neutrophil % 81.4 % (47-70); POSITIVE COUNT NO; POSITIVE DIFFERENTIAL YES; POSITIVE MORPHOLOGY NO; Platelet Count 173 K/mm3 (150-450); RBC Distribution Width CV 13.7 % (11.6-14.6); RBC Distribution Width SD 45.4 fl (35.1-43.9)
[2017-11-12 04:46] LABS: ALB/GLOB Ratio 0.9 RATIO (0.9-2.4); AST(SGOT) 25 U/L (15-37); Alanine Aminotransfer ALT/SGPT 69 U/L (16-61); Albumin, Serum 3.4 g/dL (3.2-5.0); Alkaline Phosphatase 55 U/L (45-117); Anion Gap 9 (5-15); BUN 13 mg/dL (7-18); BUN/Creat Ratio 13.8 RATIO (10-20); Calcium,Total 8.3 mg/dL (8.5-10.1); Chloride 104 mmol/L (98-107); Cholesterol 162 mg/dL (200); Creatinine, Serum 0.94 mg/dL (0.70-1.30); EST Glomerular Filtration Rate 90 mL/min (>60); Est Glom Filt Rate - Afr Amer 109 mL/min (>60); Estimated Creatinine Clearance 97.07 ml/min; Globulin 3.7 g/dL (2.2-4.2); Glucose 159 mg/dL (74-106); High Density Lipoprotein 47 mg/dL; Lipase 216 U/L (73-393); Potassium 4.1 mmol/L (3.5-5.1); Protein, Total 7.1 g/dL (6.4-8.2); Sodium Level 135 mmol/L (136-145); Triglycerides 70 mg/dL; Very Low Density Lipoprotein 14 mg/dL (5-40)
[2017-11-12 05:22] LABS: International Normalized Ratio 1.2; Prothrombin Time (Protime)PT. 14.7 SECONDS (11.7-14.9)
[2017-11-12 05:23] LABS: Partial Thromboplast Time 28.6 Seconds (24.1-36.2)
[2017-11-12 05:39] LABS: Differential Comment SCANNED
[2017-11-12] MEDS: 0.9% Normal Saline 1,000 ML 100 ML IV ×2 (05:40→17:00)
[2017-11-12] MEDS: Aspirin E.C. 81 MG Tablet PO (05:40)
--- NOTE | 2017-11-12 05:55 | EKG12_ITS ---
Test Reason : AM EKG Blood Pressure : / mmHG Vent. Rate : 100 BPM Atrial Rate : 100 BPM P-R Int : 152 ms QRS Dur : 094 ms QT Int : 332 ms P-R-T Axes : 044 053 019 degrees QTc Int : 428 ms Normal sinus rhythm Normal ECG When compared with ECG of 11-NOV-2017 13:24, MANUAL COMPARISON REQUIRED, DATA IS UNCONFIRMED Confirmed by ALE ENGLISH, SHAN ([id number]), editor sound WILMA BARBOZA ([id number]) on 11/15/2017 3:45:03 PM Referred By: DR RILEY Confirmed By:SHAN AGUILERA MD
[2017-11-12 06:45] LABS: Bedside Glucose 155 mg/dL (70-110)
[2017-11-12] MEDS: Ceftriaxone 1 GM/50 ML BAG IV (09:07)
--- NOTE | 2017-11-12 10:53 | CASEMGMT ---
This RN CM to room to complete CM assessment and pt is out of the dept for Stress test at this time. Will attempt again later. [facility] RN CM
[2017-11-12] MEDS: 0.9% NaCl Peripheral Flush Adult/Peds IV (11:22)
[2017-11-12] MEDS: Pantoprazole Sodium 40 MG Tablet PO (11:26)
[2017-11-12 11:46] LABS: Bedside Glucose 201 mg/dL (70-110)
--- NOTE | 2017-11-12 11:52 | PCM.PROGNOTE ---
<Junie Gould - Last Filed: 11/12/17 12:20> Subjective: Patient seen and examined. Denies further chest pain. Denies fever, chills. Denies GI/ complaints. Denies other complaints. - Physical Exam General: Alert, Oriented x3, Cooperative, No apparent distress HEENT: Atraumatic, PERRLA, EOMI, Normocephalic Neck: Supple, No JVD, Negative Carotid Bruits Lungs: Clear to auscultation, Normal air movement Cardiovascular: Regular Rhythm, Normal S1, Normal S2, No murmurs, Tachycardic Abdomen: Bowel Sounds Present, Soft, Non Tender, Non-Distended Extremities: No clubbing, No cyanosis, No edema, Capillary Refill Less than 3 Seconds Skin: No rashes, No breakdown Musculoskeletal: No Tenderness to Palpation of Joints or Extremities Neurological: Cranial nerves II-XII grossly intact, Neuro grossly intact Psych/Mental Status: Normal Affect, Appropriate Vital Signs Temp Pulse Resp BP Pulse Ox 99.3 F H 104 H 18 124/75 H 97 11/12/17 11:36 11/12/17 11:36 11/12/17 11:36 11/12/17 11:36 11/12/17 11:36 Oxygen Delivery Method Room Air Weight: 102.6 kg Body Mass Index (BMI) 32.3 Intake and Output for Last 24 Hours 11/10/17 11/11/17 11/12/17 23:59 23:59 23:59 Intake Total 803 / 803 583 / 583 Balance 803 / 803 583 / 583 Laboratory Tests Past 24 Hrs 11/11/17 11/12/17 11/12/17 20:15 00:35 00:36 WBC 21.0 H RBC 5.00 Hgb 15.6 Hct 45.3 MCV 90.6 MCH 31.2 MCHC 34.4 RDW 13.7 RDW Differential 45.4 H Plt Count 173 MPV 10.6 Immature Gran % (Auto) 0.300 Neut % (Auto) 81.4 H Lymph % (Auto) 8.0 L [place] % (Auto) 10.2 H Eos % (Auto) 0.0 Baso % (Auto) 0.1 Absolute Neuts (auto) 17.1 H Absolute Lymphs (auto) 1.69 Total Counted Not Reportable Differential Comment SCANNED Diff Path Review May foll PT INR APTT Sodium Potassium Chloride Carbon Dioxide Anion Gap BUN Creatinine Estim Creat Clear Calc Est GFR (MDRD) Af Amer Est GFR (MDRD) Non-Af BUN/Creatinine Ratio Glucose Calcium Total Bilirubin AST ALT Alkaline Phosphatase Troponin I < 0.02 < 0.02 Total Protein Albumin Globulin Albumin/Globulin Ratio Triglycerides Cholesterol LDL Cholesterol VLDL Cholesterol HDL Cholesterol Lipase TSH 0.53 11/12/17 11/12/17 11/12/17 03:56 03:56 09:30 WBC RBC Hgb Hct MCV MCH MCHC RDW RDW Differential Plt Count MPV Immature Gran % (Auto) Neut % (Auto) Lymph % (Auto) [place] % (Auto) Eos % (Auto) Baso % (Auto) Absolute Neuts (auto) Absolute Lymphs (auto) Total Counted Differential Comment Diff Path Review PT 14.7 INR 1.2 APTT 28.6 Sodium 135 L Potassium 4.1 Chloride 104 Carbon Dioxide 22.0 Anion Gap 9 BUN 13 Creatinine 0.94 Estim Creat Clear Calc 97.07 Est GFR (MDRD) Af Amer 109 Est GFR (MDRD) Non-Af 90 BUN/Creatinine Ratio 13.8 Glucose 159 H Calcium 8.3 L Total Bilirubin 1.90 H AST 25 ALT 69 H Alkaline Phosphatase 55 Troponin I < 0.02 < 0.02 Total Protein 7.1 Albumin 3.4 Globulin 3.7 Albumin/Globulin Ratio 0.9 Triglycerides 70 Cholesterol 162 LDL Cholesterol 101 VLDL Cholesterol 14 HDL Cholesterol 47 Lipase 216 TSH POC Glucose 11/12/17 11/12/17 11/11/17 11:29 06:40 22:38 POC Glucose 201 H 155 H 176 H Medical Necessity - Tobacco Use Smoking Status: Never smoker Assessment/Plan Patient is a 52 year old Male admitted 11/11/17 due to multiple complaints including left-sided neck pain, chest pain, dizziness, lower abdominal pain. He has a past medical history of type 2 diabetes mellitus and GERD. 1. Acute cystitis with acute sepsis (criteria: tachycardia, temp 101, WBC 21, +UTI) Urine and blood cultures pending. Continue IV Rocephin. Tylenol as needed for fever. Continue IV fluids. 2. Atypical chest pain-EKG without ST-T changes. Troponin negative. CT of chest negative for PE and dissection. Stress test without evidence of ischemia. 3. Tachycardia-secondary to #1. Improved. 4. Elevated LFT/lipase-lipase now within normal limits. AST/ALT improved. CT of abdomen and pelvis showed no obstruction or inflammation. Fatty liver. No hydronephrosis. Normal pancreas. 5. Type 2 diabetes mellitus-home oral regimen on hold. Accu-Cheks before meals at bedtime with sliding scale insulin. Check hemoglobin A1c. 6. GERD-continue PPI. DVT prophylaxis-Lovenox subcu. This patient was seen by DEANNA Hubbard under the supervision of Dr. Dickey. <Shalini Dickey - Last Filed: 11/12/17 16:59> - Physical Exam Vital Signs Temp Pulse Resp BP Pulse Ox 98.4 F 90 18 125/71 H 98 11/12/17 14:00 11/12/17 14:00 11/12/17 14:00 11/12/17 14:00 11/12/17 14:00 Oxygen Delivery Method Room Air Weight: 102.6 kg Body Mass Index (BMI) 32.3 Intake and Output for Last 24 Hours 11/10/17 11/11/17 11/12/17 23:59 23:59 23:59 Intake Total 803 / 803 1583 / 1583 Balance 803 / 803 1583 / 1583 Laboratory Tests Past 24 Hrs 11/11/17 11/12/17 11/12/17 20:15 00:35 00:35 WBC 21.0 H RBC 5.00 Hgb 15.6 Hct 45.3 MCV 90.6 MCH 31.2 MCHC 34.4 RDW 13.7 RDW Differential 45.4 H Plt Count 173 MPV 10.6 Immature Gran % (Auto) 0.300 Neut % (Auto) 81.4 H Lymph % (Auto) 8.0 L [place] % (Auto) 10.2 H Eos % (Auto) 0.0 Baso % (Auto) 0.1 Absolute Neuts (auto) 17.1 H Absolute Lymphs (auto) 1.69 Total Counted Not Reportable Differential Comment SCANNED Diff Path Review Reviewed PT INR APTT Sodium Potassium Chloride Carbon Dioxide Anion Gap BUN Creatinine Estim Creat Clear Calc Est GFR (MDRD) Af Amer Est GFR (MDRD) Non-Af BUN/Creatinine Ratio Glucose Hemoglobin A1c 7.8 H Calcium Total Bilirubin AST ALT Alkaline Phosphatase Troponin I < 0.02 Total Protein Albumin Globulin Albumin/Globulin Ratio Triglycerides Cholesterol LDL Cholesterol VLDL Cholesterol HDL Cholesterol Lipase TSH 0.53 11/12/17 11/12/17 11/12/17 00:36 03:56 03:56 WBC RBC Hgb Hct MCV MCH MCHC RDW RDW Differential Plt Count MPV Immature Gran % (Auto) Neut % (Auto) Lymph % (Auto) [place] % (Auto) Eos % (Auto) Baso % (Auto) Absolute Neuts (auto) Absolute Lymphs (auto) Total Counted Differential Comment Diff Path Review PT 14.7 INR 1.2 APTT 28.6 Sodium 135 L Potassium 4.1 Chloride 104 Carbon Dioxide 22.0 Anion Gap 9 BUN 13 Creatinine 0.94 Estim Creat Clear Calc 97.07 Est GFR (MDRD) Af Amer 109 Est GFR (MDRD) Non-Af 90 BUN/Creatinine Ratio 13.8 Glucose 159 H Hemoglobin A1c Calcium 8.3 L Total Bilirubin 1.90 H AST 25 ALT 69 H Alkaline Phosphatase 55 Troponin I < 0.02 < 0.02 Total Protein 7.1 Albumin 3.4 Globulin 3.7 Albumin/Globulin Ratio 0.9 Triglycerides 70 Cholesterol 162 LDL Cholesterol 101 VLDL Cholesterol 14 HDL Cholesterol 47 Lipase 216 TSH 11/12/17 09:30 WBC RBC Hgb Hct MCV MCH MCHC RDW RDW Differential Plt Count MPV Immature Gran % (Auto) Neut % (Auto) Lymph % (Auto) [place] % (Auto) Eos % (Auto) Baso % (Auto) Absolute Neuts (auto) Absolute Lymphs (auto) Total Counted Differential Comment Diff Path Review PT INR APTT Sodium Potassium Chloride Carbon Dioxide Anion Gap BUN Creatinine Estim Creat Clear Calc Est GFR (MDRD) Af Amer Est GFR (MDRD) Non-Af BUN/Creatinine Ratio Glucose Hemoglobin A1c Calcium Total Bilirubin AST ALT Alkaline Phosphatase Troponin I < 0.02 Total Protein Albumin Globulin Albumin/Globulin Ratio Triglycerides Cholesterol LDL Cholesterol VLDL Cholesterol HDL Cholesterol Lipase TSH POC Glucose 11/12/17 11/12/17 11/12/17 15:32 11:29 06:40 POC Glucose 158 H 201 H 155 H 11/11/17 22:38 POC Glucose 176 H Assessment/Plan Patient seen and examined. Feel better. Denies chest pain, dizziness, palpitations or dysuria or frequency. Had a stress test that was negative. Vitals are stable except for tachycardia. Will continue on antibiotics. Code Visit Inpatient E&M: 88383 Subs Hosp L2
--- NOTE | 2017-11-12 12:12 | STRESSREP_ITS ---
Stress Test Report Date: 11/12/2017 Procedure: Pharmacologic stress nuclear imaging study Indications: Chest pain Consent: Per the patient Procedure: The patient underwent pharmacologic (Regadenoson) evaluation with a peak heart rate of 118 beats per minute (69 predicted maximal heart rate) and a peak blood pressure of 122/88 mmHg. The baseline ECG demonstrated normal sinus rhythm. The peak pharmacologic ECG demonstrated no obvious ECG changes. There were no cardiac dysrhythmias pretest, during pharmacologic infusion, or recovery. There was no complaint of chest discomfort during pharmacologic infusion or recovery. The examination was discontinued secondary to completion of protocol. Impression: 1. Pharmacologic (Regadenoson) evaluation 2. Peak pharmacologic ECG with no obvious ECG changes. 3. There were no cardiac dysrhythmias pretest, during pharmacologic infusion, or recovery 4. Nuclear images pending Myocardial perfusion imaging study: Technique: The patient was injected with 14.3 millicuries of technetium 99m Cardiolite and subsequently rest SPECT Cardiolite nuclear imaging was obtained in the horizontal long, vertical long, and short axis views. The patient underwent pharmacologic (Regadenoson) evaluation with a peak heart rate of 118 beats per minute (69 % percent predicted maximal heart rate) and a peak blood pressure of 122/88 mmHg. The patient was injected with a 44.7 millicuries of technetium 99m Cardiolite and subsequently stress SPECT Cardiolite nuclear imaging was obtained in the horizontal long, vertical long, and short axis views. A gated Cardiolite study at peak stress was obtained. Interpretation: Rest and stress SPECT Cardiolite nuclear imaging status post realignment, normalization, and attenuation correction demonstrate relative uniform tracer uptake and myocardial perfusion appearing within normal limits. There is end systolic thickening and brightening. The gated Cardiolite study demonstrates myocardial thickening and inward wall motion. The reported LVEF is 65 %. Impression: 1. Rest and stress SPECT Cardiolite nuclear imaging demonstrate relative uniform tracer uptake and myocardial perfusion appearing within normal limits. 2. The gated Cardiolite study reports an LVEF of 65 %. This note was generated with [employer] software. It may contain incorrect words, spelling, and punctuation that were not noted in checking the note before signing.
[2017-11-12 12:37] LABS: Hemoglobin A1c 7.8 % (4.2-6.3)
--- NOTE | 2017-11-12 14:17 | CASEMGMT ---
Face to Face with patient for initial transition planning/care coordination assessment. PRITESH CAMACHO introduced self and role at [facility], pt voices understanding and consents to assessment at this time. Pt is sitting up in bed in no distress at this time. Pt is A/O x4 at this time and answers all questions appropriately at this time. Care providers, pharmacy, and demographics verified. See attached link. Pt voices no further concerns/needs at this time. Advised pt to ask for CM if any further questions/concerns/needs arise, voices understanding. PLAN: Home [place] PRITESH CAMACHO
[2017-11-12 14:31] LABS: Pathologist Review Reviewed
[2017-11-12 15:40] LABS: Bedside Glucose 158 mg/dL (70-110)
--- NOTE | 2017-11-12 16:58 | CHAPLAIN ---
Type of Pastoral Visit _x__ Initial Visit ___ Follow-up Visit ___ On-call Visit ___ General Patient Visit ___ Spiritual Assessment ___ Family Conference ___ Bereavement ___ Rapid Response ___ Code Blue ___ Other (describe below) Pastoral Care Referral From _x__ Patient ___ Family ___ Nurse ___ Physician ___ Math And Physics Instructor ___ Clinical Trial Data Manager ___ Other (describe below) Sacrament/Intervention _x__ Active listening ___ Anointing ___ Uatsdin _x__ Bereavement ___ Communion ___ Nikki exploration ___ _x__ Life review _x__ Prayer ___ Reconciliation ___ Sacrament of Sick _x__ Supportive presence ___ Wedding ___ Other (describe below) Pastoral Comments
[2017-11-12 22:35] LABS: Bedside Glucose 163 mg/dL (70-110)
[2017-11-13] MEDS: 0.9% Normal Saline 1,000 ML 100 ML IV (02:29)
[2017-11-13 03:05] VITALS: PULSE 78
[2017-11-13 04:01] VITALS: BP 122/73; PULSE 84; RESP 14; TEMP 37.6; O2SAT 94
[2017-11-13 06:28] LABS: Hematocrit 45.2 % (40-54); Hemoglobin 15.3 g/dl (13.0-16.5); Mean Corp Hgb Conc 33.8 g/gl (32-36); Mean Corpuscular Hgb 30.9 pg (27.0-32.0); Mean Corpuscular Volume 91.3 fL (80-94); Mean Platelet Vol. 10.3 fl (6.2-12.0); Platelet Count 151 K/mm3 (150-450); RBC Distribution Width CV 13.6 % (11.6-14.6); RBC Distribution Width SD 44.8 fl (35.1-43.9); Red Blood Count 4.95 M/mm3 (4.6-6.2); White Blood Count 15.5 K/mm3 (4.4-11.0)
[2017-11-13 06:31] LABS: Scan Indicated on CBC? Y/N NO
[2017-11-13 06:32] LABS: ALB/GLOB Ratio 0.8 RATIO (0.9-2.4); AST(SGOT) 18 U/L (15-37); Alanine Aminotransfer ALT/SGPT 48 U/L (16-61); Albumin, Serum 3.1 g/dL (3.2-5.0); Alkaline Phosphatase 54 U/L (45-117); Anion Gap 6 (5-15); BUN 11 mg/dL (7-18); Calcium,Total 8.2 mg/dL (8.5-10.1); Chloride 107 mmol/L (98-107); Creatinine, Serum 0.85 mg/dL (0.70-1.30); EST Glomerular Filtration Rate 102 mL/min (>60); Est Glom Filt Rate - Afr Amer 123 mL/min (>60); Estimated Creatinine Clearance 107.35 ml/min; Globulin 4.1 g/dL (2.2-4.2); Glucose 149 mg/dL (74-106); Potassium 4.3 mmol/L (3.5-5.1); Protein, Total 7.2 g/dL (6.4-8.2); Sodium Level 136 mmol/L (136-145)
[2017-11-13 07:36] LABS: Bedside Glucose 157 mg/dL (70-110)
[2017-11-13 07:50] VITALS: PULSE 91
[2017-11-13 08:04] VITALS: O2SAT 91
--- NOTE | 2017-11-13 08:25 | DCINST_ITS ---
- Discharge Diagnoses Current Active Problems: Current Active and Chronic Problems GERD (gastroesophageal reflux disease) (Chronic) Type 2 diabetes mellitus (Chronic) You will use the following diet at home:: Calorie/Carbohydrate Controlled ( specify 1200, 1400, etc) Discharge Activity: Return to Normal Activity Call your doctor if you observe: Shortness of breath, Dizziness, Fainting spells , Chest pain, Increased palpitations (irregular heartbeat) Allergies/Adverse Reactions: Allergies No Known Allergies Allergy (Verified 06/14/14 15:37) Medications to take at Discharge Omeprazole [Prilosec] 20 mg PO DAILY 06/11/14 Cinnamon Bark [Cinnamon] 1,000 mg PO DAILY 11/11/17 Glimepiride [Amaryl] 2 mg PO DAILY 11/11/17 Metformin HCl 1,000 mg PO BID 11/11/17 Sitagliptin Phosphate [Januvia] 100 mg PO DAILY 11/11/17 Cefdinir 300 mg PO BID #14 cap 11/13/17 The following prescriptions were given: Cefdinir 300 mg PO BID #14 cap Primary Care Physician: Viktor Parisi [Primary Care Provider] - Please follow up with your Primary Care Physician in: 1 Week Proposed Discharge Date: 11/13/17
--- NOTE | 2017-11-13 08:25 | PCM.DC.SUM ---
<Junie Gould - Last Filed: 11/13/17 08:33> Discharge Date and Diagnosis Date of Admission: 11/11/17 Date of Discharge: 11/13/17 - Primary Discharge Diagnosis 1. Acute sepsis secondary to acute Klebsiella cystitis 2. Atypical chest pain-ACS ruled out. - Secondary Discharge Diagnosis Chronic Problems GERD (gastroesophageal reflux disease) (Chronic) Type 2 diabetes mellitus (Chronic) Hospital Course and Treatment Imaging Results: Diagnostic Data Brain CT 11/11/17 13:08 IMPRESSION: Age-related changes, no acute findings Electronically Signed: Gary Majano MD at 14:09 EDT , Service support , Chest X-Ray 11/11/17 13:10 IMPRESSION: Normal x-ray examination of the chest. Electronically Signed: Gary Majano MD at 13:49 EDT , Service support , Chest CTA 11/11/17 14:06 IMPRESSION: No large or central pulmonary embolus. Somewhat limited enhancement of the peripheral pulmonary arteries. 4 mm subpleural nodule along the minor fissure on the right. This is unchanged from the prior study. Electronically Signed: Polo Gould DO at 15:53 EDT Tel , Service support , Head CTA 11/11/17 14:06 IMPRESSION: Normal [place] of [place] without a demonstrated aneurysm or hemodynamically significant stenosis. Electronically Signed: Marcelino Tapia at 16:00 EDT Tel , Service support , Neck CTA 11/11/17 14:06 IMPRESSION: Normal bilateral cervical carotid and vertebral arteries. Electronically Signed: Marainne Yost MD at 15:47 EDT Tel , Service support , Abdomen/Pelvis CT 11/11/17 16:53 IMPRESSION: No bowel obstruction or inflammation. Normal appendix. Kidneys are excreting contrast from a prior injection. This obscures evaluation for renal stones. No hydronephrosis. Fatty liver. Electronically Signed: Marcelino Tapia, at 17:55 EDT Tel , Service support , Operations: None Procedures: Stress test Summary of Care Provided: Patient is a 52 year old Male admitted 11/11/17 due to multiple complaints including left-sided neck pain, chest pain, dizziness, lower abdominal pain. He has a past medical history of type 2 diabetes mellitus and GERD. 1. Acute sepsis secondary to acute Klebsiella cystitis (criteria: tachycardia, temp 101, WBC 21, +UTI) urine culture positive for Klebsiella. Blood cultures show no growth thus far. Patient received IV Rocephin during admission and will be discharged on cefdinir 300 mg twice daily for 7 days. Follow-up with primary care physician in 1 week. 2. Atypical chest pain-ACS ruled out. EKG without ST-T changes. Troponin negative. CT of chest negative for PE and dissection. Stress test without evidence of ischemia. 3. Tachycardia-secondary to #1. Resolved. 4. Elevated LFT/lipase-lipase now within normal limits. AST/ALT improved. CT of abdomen and pelvis showed no obstruction or inflammation. Fatty liver. No hydronephrosis. Normal pancreas. 5. Type 2 diabetes mellitus-hemoglobin A1c 7.8%. Continue home glimepiride, Januvia and metformin regimen. 6. GERD-continue PPI. General: Alert, Oriented x3, Cooperative, No apparent distress HEENT: Atraumatic, PERRLA, EOMI, Normocephalic Neck: Supple, No JVD, Negative Carotid Bruits Lungs: Clear to auscultation, Normal air movement Cardiovascular: Regular Rhythm, regular rate, Normal S1, Normal S2, No murmurs Abdomen: Bowel Sounds Present, Soft, Non Tender, Non-Distended Extremities: No clubbing, No cyanosis, No edema, Capillary Refill Less than 3 Seconds Skin: No rashes, No breakdown Musculoskeletal: No Tenderness to Palpation of Joints or Extremities Neurological: Cranial nerves II-XII grossly intact, Neuro grossly intact Psych/Mental Status: Normal Affect, Appropriate Patient seen and examined prior to discharge. Physical assessment as noted above. Patient is stable for discharge home with the recommendations as noted above. This patient was seen by DEANNA Hubbard under the supervision of Dr. Dickey. Discharge Diet: Carb Control Diet Discharge Activity: Return to Normal Activity Call your doctor if you observe: Shortness of breath, Dizziness, Fainting spells, Chest pain, Increased palpitations (irregular heartbeat) Home Medications: Medications to take at Discharge Omeprazole [Prilosec] 20 mg PO DAILY 06/11/14 Cinnamon Bark [Cinnamon] 1,000 mg PO DAILY 11/11/17 Glimepiride [Amaryl] 2 mg PO DAILY 11/11/17 Metformin HCl 1,000 mg PO BID 11/11/17 Sitagliptin Phosphate [Januvia] 100 mg PO DAILY 11/11/17 Cefdinir 300 mg PO BID #14 cap 11/13/17 Following Prescrptions Were Given to Patient: Cefdinir 300 mg PO BID #14 cap Primary Care Physician: Viktor Parisi [Primary Care Provider] - Please follow up with your Primary Care Physician in: 1 Week Disposition: Home Minutes spent on discharge:: 35 Patient Condition:: Stable Medical Necessity - Tobacco Use Smoking Status: Never smoker Meaningful Use Info Meaningful Use Diagnoses (Choose all that apply): None applicable <Shalini Dickey - Last Filed: 11/13/17 09:14> Discharge Date and Diagnosis - Secondary Discharge Diagnosis Chronic Problems GERD (gastroesophageal reflux disease) (Chronic) Type 2 diabetes mellitus (Chronic) Hospital Course and Treatment Summary of Care Provided: The patient is a 52 year old M [] Code Visit Inpatient E&M: 58556 Disch Hosp
--- NOTE | 2017-11-13 08:33 | DS.PCM_ITS ---
<Junie Gould - Last Filed: 11/13/17 08:33> Discharge Date and Diagnosis Date of Admission: 11/11/17 Date of Discharge: 11/13/17 - Primary Discharge Diagnosis 1. Acute sepsis secondary to acute Klebsiella cystitis 2. Atypical chest pain-ACS ruled out. - Secondary Discharge Diagnosis Chronic Problems GERD (gastroesophageal reflux disease) (Chronic) Type 2 diabetes mellitus (Chronic) Hospital Course and Treatment Imaging Results: Diagnostic Data Brain CT 11/11/17 13:08 IMPRESSION: Age-related changes, no acute findings Electronically Signed: Gary Majano MD at 14:09 EDT , Service support , Chest X-Ray 11/11/17 13:10 IMPRESSION: Normal x-ray examination of the chest. Electronically Signed: Gary Majano MD at 13:49 EDT , Service support , Chest CTA 11/11/17 14:06 IMPRESSION: No large or central pulmonary embolus. Somewhat limited enhancement of the peripheral pulmonary arteries. 4 mm subpleural nodule along the minor fissure on the right. This is unchanged from the prior study. Electronically Signed: Polo Gould DO at 15:53 EDT Tel , Service support , Head CTA 11/11/17 14:06 IMPRESSION: Normal [place] of [place] without a demonstrated aneurysm or hemodynamically significant stenosis. Electronically Signed: Marcelino Tapia at 16:00 EDT Tel , Service support , Neck CTA 11/11/17 14:06 IMPRESSION: Normal bilateral cervical carotid and vertebral arteries. Electronically Signed: Marianne Yost MD at 15:47 EDT Tel , Service support , Abdomen/Pelvis CT 11/11/17 16:53 IMPRESSION: No bowel obstruction or inflammation. Normal appendix. Kidneys are excreting contrast from a prior injection. This obscures evaluation for renal stones. No hydronephrosis. Fatty liver. Electronically Signed: Marcelino Tapia, at 17:55 EDT Tel , Service support , Operations: None Procedures: Stress test Summary of Care Provided: Patient is a 52 year old Male admitted 11/11/17 due to multiple complaints including left-sided neck pain, chest pain, dizziness, lower abdominal pain. He has a past medical history of type 2 diabetes mellitus and GERD. 1. Acute sepsis secondary to acute Klebsiella cystitis (criteria: tachycardia, temp 101, WBC 21, +UTI) urine culture positive for Klebsiella. Blood cultures show no growth thus far. Patient received IV Rocephin during admission and will be discharged on cefdinir 300 mg twice daily for 7 days. Follow-up with primary care physician in 1 week. 2. Atypical chest pain-ACS ruled out. EKG without ST-T changes. Troponin negative. CT of chest negative for PE and dissection. Stress test without evidence of ischemia. 3. Tachycardia-secondary to #1. Resolved. 4. Elevated LFT/lipase-lipase now within normal limits. AST/ALT improved. CT of abdomen and pelvis showed no obstruction or inflammation. Fatty liver. No hydronephrosis. Normal pancreas. 5. Type 2 diabetes mellitus-hemoglobin A1c 7.8%. Continue home glimepiride, Januvia and metformin regimen. 6. GERD-continue PPI. General: Alert, Oriented x3, Cooperative, No apparent distress HEENT: Atraumatic, PERRLA, EOMI, Normocephalic Neck: Supple, No JVD, Negative Carotid Bruits Lungs: Clear to auscultation, Normal air movement Cardiovascular: Regular Rhythm, regular rate, Normal S1, Normal S2, No murmurs Abdomen: Bowel Sounds Present, Soft, Non Tender, Non-Distended Extremities: No clubbing, No cyanosis, No edema, Capillary Refill Less than 3 Seconds Skin: No rashes, No breakdown Musculoskeletal: No Tenderness to Palpation of Joints or Extremities Neurological: Cranial nerves II-XII grossly intact, Neuro grossly intact Psych/Mental Status: Normal Affect, Appropriate Patient seen and examined prior to discharge. Physical assessment as noted above. Patient is stable for discharge home with the recommendations as noted above. This patient was seen by DEANNA Hubbard under the supervision of Dr. Dickey. Discharge Diet: Carb Control Diet Discharge Activity: Return to Normal Activity Call your doctor if you observe: Shortness of breath, Dizziness, Fainting spells , Chest pain, Increased palpitations (irregular heartbeat) Home Medications: Medications to take at Discharge Omeprazole [Prilosec] 20 mg PO DAILY 06/11/14 Cinnamon Bark [Cinnamon] 1,000 mg PO DAILY 11/11/17 Glimepiride [Amaryl] 2 mg PO DAILY 11/11/17 Metformin HCl 1,000 mg PO BID 11/11/17 Sitagliptin Phosphate [Januvia] 100 mg PO DAILY 11/11/17 Cefdinir 300 mg PO BID #14 cap 11/13/17 Following Prescrptions Were Given to Patient: Cefdinir 300 mg PO BID #14 cap Primary Care Physician: Viktor Parisi [Primary Care Provider] - Please follow up with your Primary Care Physician in: 1 Week Disposition: Home Minutes spent on discharge:: 35 Patient Condition:: Stable Medical Necessity - Tobacco Use Smoking Status: Never smoker Meaningful Use Info Meaningful Use Diagnoses (Choose all that apply): None applicable <Shalini Dickey - Last Filed: 11/13/17 09:14> Discharge Date and Diagnosis - Secondary Discharge Diagnosis Chronic Problems GERD (gastroesophageal reflux disease) (Chronic) Type 2 diabetes mellitus (Chronic) Hospital Course and Treatment Summary of Care Provided: The patient is a 52 year old M [] Code Visit Inpatient E&M: 50798 Disch Hosp
[2017-11-13 08:35] VITALS: BP 127/85; PULSE 94; RESP 18; TEMP 37.3; O2SAT 94
[2017-11-13] MEDS: Pantoprazole Sodium 40 MG Tablet PO (08:38)
[2017-11-13] MEDS: Aspirin E.C. 81 MG Tablet PO (08:38)
[2017-11-13] MEDS: LINAGLIPTIN 5 MG TABLET PO (08:39)
[2017-11-13] MEDS: Glimepiride 2 MG Tablet PO (08:39)
== END 2017-11-13 10:29 | disposition home or self-care (01) | DRG 872 ==
LOC: ED 15:01 → PCU 18:43
PROVIDERS: Nurse Practitioner Family; Admitting Provider Hospitalist; Emergency Provider Emergency Medicine; Family Provider Family Medicine; PCP Family Medicine; Visit Provider Internal Medicine
DX: A41.9 Sepsis, unspecified organism (principal); N30.00 Acute cystitis without hematuria; B96.1 Klebsiella pneumoniae [K. pneumoniae] as the cause of diseases classified elsewhere; R07.89 Other chest pain; E11.9 Type 2 diabetes mellitus without complications; I73.00 Raynaud's syndrome without gangrene; K21.9 Gastro-esophageal reflux disease without esophagitis; Z79.84 Long term (current) use of oral hypoglycemic drugs; Z79.899 Other long term (current) drug therapy
CPT/HCPCS: 36415; 70450; 70496; 70498; 71045; 71275; 74176; 78452; 80048; 80053; 80061; 80076; 81001; 82962; 83036; 83605; 83690; 84443; 84484; 85025; 85027; 85610; 85730; 87040; 87077; 87086; 87088; 87186; 93005; 93017; 97802; 99285; A9500; J7030; J7050; Q9967; A4216; J2785

== ENCOUNTER 2019-03-09 18:38 | Observation (INO) | payer OTHER, SELFPAY ==
[2019-03-09 18:39] VITALS: BP 135/86; PULSE 118; RESP 16; TEMP 36.8; O2SAT 95; BMI 31.8
--- NOTE | 2019-03-09 19:01 | ED.VIS.GEN ---
History of Present Illness Informant: Patient Onset: Days Context: Gradual Onset Current Severity: Moderate Narrative: She is a 54-year-old male with history of urosepsis as well as [id number] diabetes mellitus presenting with concern for urinary tract infection. Patient states for the past few days he has had increased frequency, dysuria and testicular pain. He states he has urgency as well. He notes this feels like his prior urinary tract infection. He is also having some left flank pain. Patient went to urgent care today where he said he had a temperature of 100.8 ?F. He states they did a urine dip and told him he had sugar in his urine. Patient does not check his blood sugar at home. Urgent care recommended he come to the emergency room for further evaluation. Patient denies any associated nausea, vomiting or upper abdominal pain. He currently denies any chest pain or shortness of breath but notices over the past 2 months he does get a little short of breath with exertion. He is currently asymptomatic. Finally patient notes that he did have an episode of diarrhea 2 days ago which has since resolved. He denies any blood in his stool. <Angela Bourgeois - Last Filed: 03/09/19 21:52> <Rolly Ashley - Last Filed: 03/09/19 22:18> Chief Complaint: Complaint Past Medical History Prior records reviewed: Yes Past Medical History: - - History of ureterolithiasis, diabetes Surgical History: herniorrhaphy Smoking Status: Never smoker - Family History Maternal Family History: Reports: No pertinent history Additional Family History: Father 6 months ago for pancreatic cancer Paternal Family History: Reports: No pertinent history <Angela Bourgeois - Last Filed: 03/09/19 21:52> <Rolly Ashley - Last Filed: 03/09/19 22:18> - Allergies and Home Meds Allergies/Adverse Reactions: Allergies No Known Allergies Allergy (Verified 03/09/19 18:41) Review of Systems All systems negative except as indicated General: Reports: Fever - 100.8 at urgent care Gastrointestinal: Reports: Abdominal pain - Suprapubic, Diarrhea - 2 days ago Genitourinary: Reports: Dysuria, Frequency <Angela Bourgeois - Last Filed: 03/09/19 21:52> Physical Exam Vital Signs/Narrative: Vital Signs Temp Pulse Resp BP Pulse Ox 03/09/19 18:39 98.2 F 118 H 16 135/86 H 95 General: Well nourished, Well developed, No Acute Distress Head: Normocephalic, Atraumatic Eyes: Perrl, EOMI ENT: Moist mucous membranes, No rhinorrhea Neck: Supple, Nontender Cardiovascular: Regular rate, Regular rhythm, No murmurs Respiratory: No distress, CTA bilaterally, Chest nontender Abdomen: Soft, Nontender, Nondistended, Normal bowel sounds. Negative for: Guarding, Rebound tenderness : - - Mild testicular tenderness, mild erythema of the testicles, no penile discharge noted, no crepitus appreciated Back: Nontender, Normal Inspection. Negative for: CVA tenderness Extremities: Nontender, No edema Skin: Normal color, No rash Neurological: Alert, Oriented x3, Cranial nerves II-XII grossly intact, Normal Strength, Normal Sensation Psychological: Normal affect, Normal Mood <Angela Bourgeois - Last Filed: 03/09/19 21:52> Vital Signs/Narrative: Vital Signs Temp Pulse Resp BP Pulse Ox 03/09/19 21:14 99.2 F H 93 20 H 141/86 H 97 03/09/19 19:28 99.1 F 100 18 154/101 H 96 03/09/19 18:39 98.2 F 118 H 16 135/86 H 95 <Rolly Ashley - Last Filed: 03/09/19 22:18> Diagnostic/Tx/Re-eval Diagnostic Data Abdomen/Pelvis CT 03/09/19 20:41 IMPRESSION: Tiny nonobstructing left renal calculi. Nonspecific fatty infiltration of the liver. Status postcholecystectomy Diverticular changes of the colon without evidence for acute diverticulitis Mild nonspecific thickening of the cortes of bladder which may be consistent with cystitis however clinical correlation recommended Electronically Signed: Donta Birmingham MD at 21:15 EDT , Service support , Laboratory Data 03/09/19 03/09/19 03/09/19 19:10 19:20 19:20 WBC 14.9 H RBC 5.15 Hgb 15.8 Hct 45.4 MCV 88.2 MCH 30.7 MCHC 34.8 RDW Std Deviation 41.1 RDW Coeff of Maria Del Rosario 12.5 Plt Count 169 MPV 10.6 Immature Gran % (Auto) 0.500 Neut % (Auto) 77.0 H Lymph % (Auto) 13.6 L [place] % (Auto) 8.4 Eos % (Auto) 0.2 Baso % (Auto) 0.3 Absolute Neuts (auto) 11.4 H Absolute Lymphs (auto) 2.02 Nucleated RBC % 0 Sodium 134 L Potassium 4.2 Chloride 101 Carbon Dioxide 29.0 Anion Gap 4 L BUN 17 Creatinine 1.02 Estim Creat Clear Calc 87.47 Est GFR (MDRD) Af Amer 99 Est GFR (MDRD) Non-Af 82 BUN/Creatinine Ratio 16.7 Glucose 335 H Lactic Acid Calcium 8.7 Urine Color Yellow Urine Clarity Clear Urine pH 6.0 Ur Specific [place] 1.015 Urine Protein 15 H Urine Glucose (UA) 1000 H Urine Ketones 15 H Urine Occult Blood 25 H Urine Nitrite Negative Urine Bilirubin Negative Urine Urobilinogen Normal Ur Leukocyte Esterase 100 H Urine RBC 0 SEEN Urine WBC 25-50 SEEN Ur Squamous Epith Cells 0 SEEN Urine Bacteria RARE Urine Mucus 0 SEEN 03/09/19 19:20 WBC RBC Hgb Hct MCV MCH MCHC RDW Std Deviation RDW Coeff of Maria Del Rosario Plt Count MPV Immature Gran % (Auto) Neut % (Auto) Lymph % (Auto) [place] % (Auto) Eos % (Auto) Baso % (Auto) Absolute Neuts (auto) Absolute Lymphs (auto) Nucleated RBC % Sodium Potassium Chloride Carbon Dioxide Anion Gap BUN Creatinine Estim Creat Clear Calc Est GFR (MDRD) Af Amer Est GFR (MDRD) Non-Af BUN/Creatinine Ratio Glucose Lactic Acid 1.4 Calcium Urine Color Urine Clarity Urine pH Ur Specific [place] Urine Protein Urine Glucose (UA) Urine Ketones Urine Occult Blood Urine Nitrite Urine Bilirubin Urine Urobilinogen Ur Leukocyte Esterase Urine RBC Urine WBC Ur Squamous Epith Cells Urine Bacteria Urine Mucus - Medical Decision Making Patient is evaluated for urinary symptoms. He was febrile prior to arrival and is tachycardic in the emergency room. Septic work-up is performed. Patient's lactate is normal however he does have a leukocytosis. Patient meets criteria for sepsis but not severe sepsis or septic shock. Urinalysis is consistent with UTI. Urine culture sent. Edges are also obtained. Patient is given a liter fluid. Patient is hemodynamically stable in the emergency room. He is given IV Rocephin. After discussion with admitting hospitalist, he requested a CT abdomen and pelvis to further evaluate patient's abdominal hernia and signs of kidney stone. CT is largely negative. Patient does have an elevated blood glucose however he has a normal anion gap. I do not suspect DKA or HHNK. Patient is to the general medical floor at time of disposition. He is agreeable with this plan. Diagnosis 1. Urinary tract infection 2. Sepsis <Angela Bourgeois - Last Filed: 03/09/19 21:52> - Medical Decision Making The patient has no evidence of Marylou's gangrene. His general exam is unremarkable. His urine does show evidence of infection and with his low-grade fever and history of diabetes, I do feel that observation would be appropriate. The patient is agreeable with this plan of care. He was discussed with the hospitalist and will be admitted. <Rolly Ashley - Last Filed: 03/09/19 22:18> ED Disposition <Angela Bourgeois - Last Filed: 03/09/19 21:52> <Rolly Ashley - Last Filed: 03/09/19 22:18> - Plan for ED Patient: Disposition: [facility]
[2019-03-09] MEDS: 0.9% Normal Saline 1,000 ML 1000 ML IV (19:17)
[2019-03-09 19:28] VITALS: BP 154/101; PULSE 100; RESP 18; TEMP 37.3; O2SAT 96
[2019-03-09 19:31] LABS: Mucous, Urine 0 SEEN /hpf (<or=2+); Red Blood Cells-Urine 0 SEEN /hpf (0-5); Squamous Epithelial Cells - UA 0 SEEN /hpf (0-5)
[2019-03-09 19:37] LABS: Absolute Lymphocyte Count 2.02 X10^3/uL (0.83-4.51); Absolute Neutrophil Count 11.4 X10^3/uL (2.0-7.7); Basophil# 0.04 X10^3/uL; Basophil% 0.3 % (0-1); Eosinophil# 0.03 X10^3/uL; Eosinophils% 0.2 % (0-5); Hematocrit 45.4 % (40-54); Hemoglobin 15.8 g/dL (13.0-16.5); Lymphocyte # 2.02 X10^3/ul (4.0); Lymphocyte % 13.6 % (19-41); Mean Corp Hgb Conc 34.8 g/dL (32-36); Mean Corpuscular Hgb 30.7 pg (27.0-32.0); Mean Corpuscular Volume 88.2 fL (80-94); Mean Platelet Vol. 10.6 fl (6.2-12.0); Monocyte# 1.25 X10^3/uL; Monocyte% 8.4 % (0-10); NRBC Flagged by Analyzer 0 % (0-5); Neutrophil # 11.44 X10^3/uL (2.7-7.7); Platelet Count 169 K/mm3 (150-450); RBC Distribution Width CV 12.5 % (11.6-14.6); RBC Distribution Width SD 41.1 fl (35.1-43.9); Red Blood Count 5.15 M/mm3 (4.6-6.2); White Blood Count 14.9 K/mm3 (4.4-11.0)
[2019-03-09 19:56] LABS: Color, Urine Yellow (Yellow); Glucose, Dipstick 1000 mg/dl (Normal); Ketone-Dipstick 15 mg/dl (Negative); Leukocyte Esterase-Dipstick 100 /ul (Negative); Nitrite-Dipstick Negative (Negative); Occult Blood-Urine 25 /ul (Negative); Protein-Dipstick 15 mg/dl (Negative); Specific Gravity, Urine 1.015 (1.002-1.030); Urine Bilirubin Dipstick Negative (Negative); Urine Clarity Clear (Clear); Urine Urobilinogen Normal (Normal)
[2019-03-09 20:01] LABS: White Blood Cells 25-50 SEEN /hpf (0-5)
[2019-03-09 20:02] LABS: Bacteria RARE /hpf (None Seen)
[2019-03-09 20:04] LABS: Anion Gap 4 (5-15); BUN 17 mg/dL (7-18); BUN/Creat Ratio 16.7 RATIO (10-20); Calcium,Total 8.7 mg/dL (8.5-10.1); Chloride 101 mmol/L (98-107); Creatinine, Serum 1.02 mg/dL (0.70-1.30); EST Glomerular Filtration Rate 82 mL/min (>60); Est Glom Filt Rate - Afr Amer 99 mL/min (>60); Estimated Creatinine Clearance 87.47 ml/min; Glucose 335 mg/dL (74-106); Potassium 4.2 mmol/L (3.5-5.1); Sodium Level 134 mmol/L (136-145)
[2019-03-09 20:19] LABS: Lactic Acid 1.4 mmol/L (0.4-2.0)
--- NOTE | 2019-03-09 20:41 | CT_ITS ---
STUDY: CT ABDOMEN AND PELVIS WITH CONTRAST REASON FOR EXAM: Male, 54 years old. Pyelonephritis RADIATION DOSAGE (If Supplied By Facility): CTDIvol = ( 15.75 ) mGy, DLP = ( 1155.92 ) mGycm TECHNIQUE: Transaxial images were obtained from the dome of the diaphragm to the symphysis pubis without oral contrast. 100ML IV Isovue 300 was administered. Sagittal and coronal images were reconstructed. Individualized dose optimization techniques were used for this CT. COMPARISON: November 11, 2017 FINDINGS: There is minor atelectasis within the dependent portion of the lungs. The visualized portions of the heart are within normal limits. Nonspecific fatty infiltration of the liver without mass or bile duct dilatation. Status post cholecystectomy.. Normal spleen. Normal pancreas. Normal bilateral adrenal glands. There are 2 tiny nonobstructing calculi in left kidney. No evidence for renal obstruction or ureteral calculus. There is a tiny hypoattenuated density in the right kidney possibly representing a cyst. Normal visualized stomach. Normal small intestine. Minor diverticular changes of the colon without evidence for acute diverticulitis. No evidence for acute appendicitis Normal abdominal aorta. Normal inferior vena cava. Normal retroperitoneum. Postsurgical changes are seen within the left lower and right lower quadrant Mild diffuse nonspecific thickening of the cortes of the bladder. Mild nonspecific prominence of the prostate and seminal vesicles. Fat-containing left inguinal hernia is observed.. Lumbar spine demonstrates moderate spondylosis. CT/Abdomen/Pelvis W IV Cont ONLY IMPRESSION: Tiny nonobstructing left renal calculi. Nonspecific fatty infiltration of the liver. Status postcholecystectomy Diverticular changes of the colon without evidence for acute diverticulitis Mild nonspecific thickening of the cortes of bladder which may be consistent with cystitis however clinical correlation recommended Electronically Signed: Donta Birmingham MD at 21:15 EDT , Service support ,
[2019-03-09] MEDS: Ceftriaxone 1 GM/50 ML BAG IV (21:13)
[2019-03-09 21:14] VITALS: BP 141/86; PULSE 93; PULSE 95; RESP 20; TEMP 37.3; O2SAT 96; O2SAT 97
--- NOTE | 2019-03-09 21:29 | HP.PCM_ITS ---
Problem List (1) UTI (urinary tract infection) Status: Acute (2) GERD (gastroesophageal reflux disease) Status: Chronic (3) Type 2 diabetes mellitus Status: Chronic History of Present Illness Date of Admission: 03/09/19 Chief Complaint: abdominal pain and dysuria The patient is a 54 year old male patient with a history of urosepsis presents to the emergency room with 2 months of worsening abdominal pain. She states the pain in his lower abdomen above his bladder is currently 10/10 and he has pain in his left flank as well. Urinalysis is positive for bacteria CBC shows a white count of 14,900 with a left shift and CT scan is positive for bladder wall thickening consistent with cystitis. Patient also complained of a ventral hernia that has been hurting but is a chronic issue and is reducible (CT ruled out encarceration). Patient being admits to being a diabetic and having compliance issues with his metformin. The patient denies chest pain shortness of breath nausea or vomiting. The patient did present with a heart rate greater than 100 bpm and his initial lactate is normal. Will be admitted for observation to general medical floor for IV hydration and antibiotics. Past Medical History Past Medical History (Chronic Problems): Chronic Problems GERD (gastroesophageal reflux disease) (Chronic) Type 2 diabetes mellitus (Chronic) Allergies No Known Allergies Allergy (Verified 03/09/19 18:41) Home Medications: Ambulatory Orders Medication Instructions Recorded Metformin HCl 1,000 mg PO BID 03/09/19 Omeprazole Magnesium [Prilosec Otc] 20 mg PO BID 03/09/19 Surgical History: herniorrhaphy Psychiatric History: No pertinent psych hx Smoking Status: Never smoker - *Family History Maternal History Items: No pertinent history Paternal History Items: No pertinent history Review of Systems Constitutional: Reports: Fever. Denies: Chills, Weight Change HEENT: Denies: Head Aches, Sinus Congestion, Sinus Drainage Cardiovascular: Denies: Chest Pain, Palpitations Respiratory: Denies: Cough, Shortness of breath at rest, Sputum production Gastrointestinal: Reports: Abdominal Pain. Denies: Nausea, Vomiting Genitourinary: Denies: Dysuria Musculoskeletal: Denies: Joint Pain, Joint Tenderness Skin: Denies: Rash, Wounds Neurological: Denies: Numbness, Tingling, Focal weakness Psychiatric: Denies: Anxiety, Depression, Homicidal Ideations, Suicidal Ideations Hematologic/ Lymphatic: Denies: Easy Bruising, Easy Bleeding VTE Information - Inpt Only VTE Present on Admission: No VTE Mechan Device Prophylaxis: None VTE Pharm Prophylaxis ordered?: Yes Patient Problems: Active and Suspected Problems UTI (urinary tract infection) (Acute) - Physical Exam General: Alert, Oriented x3, Cooperative HEENT: Atraumatic, Normocephalic Neck: Supple Lungs: Clear to auscultation, Normal air movement, No rhonchi, No wheeze, No rales Cardiovascular: Regular rate, Normal S1, Normal S2, No murmurs, Tachycardic Abdomen: Bowel Sounds Present, Obese, Tender - lower abdomen ,generalized, Hernia - Ventral- reducible, - - +mild positive left CVA tenderness Extremities: No edema, Capillary Refill Less than 3 Seconds Skin: No rashes Musculoskeletal: No Tenderness to Palpation of Joints or Extremities Neurological: Neuro grossly intact Psych/Mental Status: Normal Affect, Appropriate Vital Signs Temp Pulse Resp BP Pulse Ox 99.2 F H 95 20 H 141/86 H 97 03/09/19 21:14 03/09/19 21:14 03/09/19 21:14 03/09/19 21:14 03/09/19 21:14 Oxygen Delivery Method Room Air Weight: 222 lb 3.615 oz Body Mass Index (BMI) 31.8 Finger Stick Blood Glucose 139 Intake and Output for Last 24 Hours 03/07/19 03/08/19 03/09/19 23:59 23:59 23:59 Intake Total 1000 / 1000 Balance 1000 / 1000 Laboratory Tests Past 24 Hrs 03/09/19 03/09/19 03/09/19 19:10 19:20 19:20 WBC 14.9 H RBC 5.15 Hgb 15.8 Hct 45.4 MCV 88.2 MCH 30.7 MCHC 34.8 RDW Std Deviation 41.1 RDW Coeff of Maria Del Rosario 12.5 Plt Count 169 MPV 10.6 Immature Gran % (Auto) 0.500 Neut % (Auto) 77.0 H Lymph % (Auto) 13.[address] [place] % (Auto) 8.4 Eos % (Auto) 0.2 Baso % (Auto) 0.3 Absolute Neuts (auto) 11.4 H Absolute Lymphs (auto) 2.02 Nucleated RBC % 0 Sodium 134 L Potassium 4.2 Chloride 101 Carbon Dioxide 29.0 Anion Gap 4 L BUN 17 Creatinine 1.02 Estim Creat Clear Calc 87.47 Est GFR (MDRD) Af Amer 99 Est GFR (MDRD) Non-Af 82 BUN/Creatinine Ratio 16.7 Glucose 335 H Lactic Acid Calcium 8.7 Urine Color Yellow Urine Clarity Clear Urine pH 6.0 Ur Specific [place] 1.015 Urine Protein 15 H Urine Glucose (UA) 1000 H Urine Ketones 15 H Urine Occult Blood 25 H Urine Nitrite Negative Urine Bilirubin Negative Urine Urobilinogen Normal Ur Leukocyte Esterase 100 H Urine RBC 0 SEEN Urine WBC 25-50 SEEN Ur Squamous Epith Cells 0 SEEN Urine Bacteria RARE Urine Mucus 0 SEEN 03/09/19 19:20 WBC RBC Hgb Hct MCV MCH MCHC RDW Std Deviation RDW Coeff of Maria Del Rosario Plt Count MPV Immature Gran % (Auto) Neut % (Auto) Lymph % (Auto) [place] % (Auto) Eos % (Auto) Baso % (Auto) Absolute Neuts (auto) Absolute Lymphs (auto) Nucleated RBC % Sodium Potassium Chloride Carbon Dioxide Anion Gap BUN Creatinine Estim Creat Clear Calc Est GFR (MDRD) Af Amer Est GFR (MDRD) Non-Af BUN/Creatinine Ratio Glucose Lactic Acid 1.4 Calcium Urine Color Urine Clarity Urine pH Ur Specific [place] Urine Protein Urine Glucose (UA) Urine Ketones Urine Occult Blood Urine Nitrite Urine Bilirubin Urine Urobilinogen Ur Leukocyte Esterase Urine RBC Urine WBC Ur Squamous Epith Cells Urine Bacteria Urine Mucus Assessment/Plan All Active Problems UTI (urinary tract infection) (Acute) Chronic Problems GERD (gastroesophageal reflux disease) (Chronic) Type 2 diabetes mellitus (Chronic) Plan 1. Urinary tract infection with history of urosepsis?went for observation to general medical floor with IV hydration and continue Rocephin 1 g IV every 24 hours, repeat CBC BMP in the a.m., morphine 2 mg IV every 2 hours as needed pain, will order as needed Zofran in case he needs that later as well 2. Diabetes?monitor sugars continue routine home medications 3. GERD continue PPI 4. DVT prophylaxis?low molecular weight heparin Code Visit OBSV E&M: 32756 Initial observation care L2
[2019-03-09 21:39] VITALS: BMI 31.7
[2019-03-09 21:40] VITALS: BP 144/93; PULSE 83; RESP 16; TEMP 37.1; O2SAT 98
[2019-03-09 22:00] VITALS: BP 144/93; PULSE 83; RESP 16; TEMP 37.2; O2SAT 98
[2019-03-09] MEDS: Pantoprazole Sodium 20 MG Tablet PO (22:27)
[2019-03-09] MEDS: 0.9% Normal Saline 1,000 ML 100 ML IV (22:27)
[2019-03-09] MEDS: Morphine 2 MG/ML Syringe IV (22:27)
[2019-03-09] MEDS: Insulin Lispro 100 UNIT/ML INSULN.PEN SC (22:35)
[2019-03-09 22:46] LABS: Bedside Glucose 207 mg/dL (70-110)
[2019-03-10 03:40] VITALS: BP 136/87; PULSE 83; RESP 16; TEMP 36.9; O2SAT 96
[2019-03-10] MEDS: oxyCODONE 5 MG Tablet PO ×2 (06:30→20:19)
[2019-03-10] MEDS: 0.9% Normal Saline 1,000 ML 100 ML IV ×2 (06:31→18:22)
[2019-03-10] MEDS: Insulin Lispro 100 UNIT/ML INSULN.PEN SC ×4 (06:36→21:48)
[2019-03-10 06:45] LABS: Bedside Glucose 256 mg/dL (70-110)
[2019-03-10 06:53] LABS: Absolute Lymphocyte Count 2.09 X10^3/uL (0.83-4.51); Absolute Neutrophil Count 10.2 X10^3/uL (2.0-7.7); Basophil# 0.03 X10^3/uL; Basophil% 0.2 % (0-1); Eosinophil# 0.08 X10^3/uL; Eosinophils% 0.6 % (0-5); Hematocrit 43.4 % (40-54); Hemoglobin 14.6 g/dL (13.0-16.5); Lymphocyte # 2.09 X10^3/ul (4.0); Lymphocyte % 15.2 % (19-41); Mean Corp Hgb Conc 33.6 g/dL (32-36); Mean Corpuscular Hgb 30.1 pg (27.0-32.0); Mean Corpuscular Volume 89.5 fL (80-94); Mean Platelet Vol. 10.7 fl (6.2-12.0); Monocyte# 1.27 X10^3/uL; Monocyte% 9.3 % (0-10); NRBC Flagged by Analyzer 0 % (0-5); Neutrophil # 10.17 X10^3/uL (2.7-7.7); Neutrophil % 74.2 % (47-70); Platelet Count 158 K/mm3 (150-450); RBC Distribution Width CV 12.8 % (11.6-14.6); RBC Distribution Width SD 42.2 fl (35.1-43.9); Red Blood Count 4.85 M/mm3 (4.6-6.2); White Blood Count 13.7 K/mm3 (4.4-11.0)
[2019-03-10 06:59] LABS: Anion Gap 8 (5-15); BUN 12 mg/dL (7-18); BUN/Creat Ratio 14.5 RATIO (10-20); Chloride 104 mmol/L (98-107); Creatinine, Serum 0.83 mg/dL (0.70-1.30); EST Glomerular Filtration Rate 104 mL/min (>60); Est Glom Filt Rate - Afr Amer 126 mL/min (>60); Glucose 256 mg/dL (74-106); Potassium 4.2 mmol/L (3.5-5.1); Sodium Level 136 mmol/L (136-145)
--- NOTE | 2019-03-10 09:01 | US_ITS ---
PROCEDURES: TRANSRECTAL ULTRASOUND GUIDED - PROSTATE REASON FOR EXAM: Male, 54 years old. Recurrent UTIs. TECHNIQUE: Ultrasound evaluation of the prostate was performed with real-time and static ibrahim-scale imaging. BIOPSY: A needle core biopsy was perform. A consent form was signed, PT-PTT levels checked and a time-out was called. The patient is currently off any anticoagulant therapy. Cleansing enema: Yes COMPARISON: None. FINDINGS: Prostate Volume: 37.9 cm3 The prostate glandular tissue appears normal without evidence of nodules or lesions. The prostate glandular tissue appears normal without evidence of nodules or lesions. The prostate glandular tissue appears normal without evidence of nodules or lesions. The seminal vesicles appear normal without evidence of nodules or lesions. US/Prostate IMPRESSION: Unremarkable sonogram of the prostate. Electronically Signed: Zain Conti, at 14:42 EDT , Service support ,
--- NOTE | 2019-03-10 09:14 | PN_ITS ---
Patient Problems: Active and Suspected Problems UTI (urinary tract infection) (Acute) Subjective: The patient has history of dysuria, burning micturition and penile urethra, increased frequency urgency for last 3 weeks. Prior to that, he was admitted in October 2017 for UTI/cystitis and urine culture grew Klebsiella and completed treatment with cefdinir as per culture and sensitivity. This time, patient had low-grade fever, suprapubic/lower abdominal pain along with left flank pain. Patient had leukocytosis 14.900 with left shift. Had mild tachycardia 118/min. Patient has chronic constipation for about 3 years. Patient had colonoscopy about 4 to 5 years ago but no significant finding as per patient. CT abdomen was done which showed tiny nonobstructing left renal calculi. Mild nonspecific thickening of bladder wall. Clinical Impression(s) from Imaging Studies Abdomen/Pelvis CT 03/09/19 20:41 IMPRESSION: Tiny nonobstructing left renal calculi. Nonspecific fatty infiltration of the liver. Status postcholecystectomy Diverticular changes of the colon without evidence for acute diverticulitis Mild nonspecific thickening of the cortes of bladder which may be consistent with cystitis however clinical correlation recommended Vitals/I&O's: Vital Signs Temp Pulse Resp BP Pulse Ox 98.4 F 83 16 136/87 H 96 03/10/19 03:40 03/10/19 03:40 03/10/19 03:40 03/10/19 03:40 03/10/19 03:40 Oxygen Delivery Method Room Air Weight: 221 lb 1.978 oz Body Mass Index (BMI) 31.7 Finger Stick Blood Glucose 139 Intake and Output for Last 24 Hours 03/08/19 03/09/19 03/10/19 23:59 23:59 23:59 Intake Total 1050 / 1410 1766.67 / 1766.67 Balance 1050 / 1410 1766.67 / 1766.67 General: Alert, Oriented x3, Cooperative HEENT: Atraumatic, PERRLA, EOMI, Normocephalic Neck: Supple, No JVD, Negative Carotid Bruits Lungs: Clear to auscultation, Normal air movement, No rhonchi, No wheeze, No rales Cardiovascular: Regular rate, Regular Rhythm, Normal S1, Normal S2, No murmurs Abdomen: Bowel Sounds Present, Soft, Non Tender, Non-Distended, - - On per rectal exam, prostate seems enlarged. Lateral cortes clear and well demarcated. Could not reach her border. Tenderness present. Extremities: No edema, Capillary Refill Less than 3 Seconds Skin: No rashes, No breakdown Musculoskeletal: No Tenderness to Palpation of Joints or Extremities, Arthritic Changes Neurological: Cranial nerves II-XII grossly intact, Deep Tendon Reflexes 2+/4 and Symmetrical, Neuro grossly intact, Motor Exam 5/5 strength throughout Psych/Mental Status: Normal Affect, Appropriate Laboratory Results 03/09/19 19:10: Urine Color Yellow, Urine Clarity Clear, Urine pH 6.0, Ur Specific [place] 1.015, Urine Protein 15 H, Urine Glucose (UA) 1000 H, Urine Ketones 15 H, Urine Occult Blood 25 H, Urine Nitrite Negative, Urine Bilirubin Negative, Urine Urobilinogen Normal, Ur Leukocyte Esterase 100 H, Urine RBC 0 SEEN, Urine WBC 25-50 SEEN, Ur Squamous Epith Cells 0 SEEN, Urine Bacteria RARE, Urine Mucus 0 SEEN 03/09/19 19:20: WBC 14.9 H, RBC 5.15, Hgb 15.8, Hct 45.4, MCV 88.2, MCH 30.7, MCHC 34.8, RDW Std Deviation 41.1, RDW Coeff of Maria Del Rosario 12.5, Plt Count 169, MPV 10.6, Immature Gran % (Auto) 0.500, Neut % (Auto) 77.0 H, Lymph % (Auto) 13.6 L, [place] % (Auto) 8.4, Eos % (Auto) 0.2, Baso % (Auto) 0.3, Absolute Neuts (auto) 1 1.4 H, Absolute Lymphs (auto) 2.02, Nucleated RBC % 0 03/09/19 19:20: Sodium 134 L, Potassium 4.2, Chloride 101, Carbon Dioxide 29.0, Anion Gap 4 L, BUN 17, Creatinine 1.02, Estim Creat Clear Calc 87.47, Est GFR (MDRD) Af Amer 99, Est GFR (MDRD) Non-Af 82, BUN/Creatinine Ratio 16.7, Glucose 335 H, Calcium 8.7 03/09/19 19:20: Lactic Acid 1.4 03/09/19 22:35: POC Glucose 207 H 03/10/19 06:00: WBC 13.7 H, RBC 4.85, Hgb 14.6, Hct 43.4, MCV 89.5, MCH 30.1, MCHC 33.6, RDW Std Deviation 42.2, RDW Coeff of Maria Del Rosario 12.8, Plt Count 158, MPV 10.7, Immature Gran % (Auto) 0.500, Neut % (Auto) 74.2 H, Lymph % (Auto) 15.2 L, [place] % (Auto) 9.3, Eos % (Auto) 0.6, Baso % (Auto) 0.2, Absolute Neuts (auto) 10.2 H, Absolute Lymphs (auto) 2.09, Nucleated RBC % 0 03/10/19 06:00: Sodium 136, Potassium 4.2, Chloride 104, Carbon Dioxide 24.0, Anion Gap 8, BUN 12, Creatinine 0.83, Estim Creat Clear Calc 107.50, Est GFR (MDRD) Af Amer 126, Est GFR (MDRD) Non-Af 104, BUN/Creatinine Ratio 14.5, Glucose 256 H, Calcium 8.0 L 03/10/19 06:36: POC Glucose 256 H Current Medications Acetaminophen (Tylenol) 650 mg PO Q6H PRN PRN PRN Reason: Mild Pain (1-3)/Temp > 100.7 F Dextrose (D50w Syringe) 0 gm IV X1 PRN; Protocol PRN Reason: Hypoglycemia Enoxaparin Sodium (Lovenox) 40 mg SC DAILY@1000 JORGE Glucagon () 1 mg IM .X1 PRN PRN Reason: Hypoglycemia Sodium Chloride () 1,000 mls @ 100 mls/hr IV .Q10H [facility] Last Admin: 03/10/19 06:31 Dose: 100 mls/hr Documented by: Ceftriaxone Sodium (Rocephin) 1 gm in 50 mls @ 100 mls/hr IV Q24@2200 JORGE Sodium Chloride () 250 mls @ 15 mls/hr IV .[id number] PRN PRN Reason: SALINE FLUSH Insulin Human Lispro (Humalog Kwikpen (Bkc)) 0 unit SC ACHS [facility]; Protocol Last Admin: 03/10/19 06:36 Dose: 2 u Documented by: Metformin HCl (Glucophage) 1,000 mg PO BIDCM [facility] Last Admin: 03/09/19 22:23 Dose: Not Given Documented by: Morphine Sulfate () 2 mg IV Q3H PRN PRN PRN Reason: Severe pain (7-10/10) Last Admin: 03/09/19 22:27 Dose: 2 mg Documented by: Ondansetron HCl (Zofran) 4 mg IV Q8H PRN PRN PRN Reason: NAUSEA/VOMITING Oxycodone HCl (Oxyir) 5 mg PO Q4H PRN PRN PRN Reason: Moderate Pain (4-6/10) Last Admin: 03/10/19 06:30 Dose: 5 mg Documented by: Pantoprazole Sodium (Protonix) 20 mg PO BID JORGE Last Admin: 03/09/19 22:27 Dose: 20 mg Documented by: Sodium Chloride () 10 - 40 ml IV UD PRN PRN Reason: SALINE FLUSH Medical Necessity - Tobacco Use Smoking Status: Never smoker Assessment/Plan All Active Problems UTI (urinary tract infection) (Acute) The patient has history of dysuria, burning micturition and penile urethra, increased frequency urgency for last 3 weeks. Prior to that, he was admitted in October 2017 for UTI/cystitis and urine culture grew Klebsiella and completed treatment with cefdinir as per culture and sensitivity. This time, patient had low-grade fever, suprapubic/lower abdominal pain along with left flank pain. Patient had leukocytosis 14.900 with left shift. Had mild tachycardia 118/min. Patient has chronic constipation for about 3 years. Patient had colonoscopy about 4 to 5 years ago but no significant finding as per patient. CT abdomen was done which showed tiny nonobstructing left renal calculi. Mild nonspecific thickening of bladder wall. 1. Complicated cystitis/UTI with possibility of prostatitis possible subacute or acute on chronic with possible BPH: Patient is being admitted on [facility] floor. On IV antibiotic ceftriaxone. Prostatic tenderness was found on OR examination. Prostate ultrasound ordered with Fleet enema prior to the procedure. Cultures and urine cultures are pending. Discussed with ID and if found prostatitis/prostatic abscess will need formal ID consult and urology consult for drainage. 2. Possible BPH: Patient prostate was found to be enlarged on OR examination. On Flomax. Monitor PVR with bladder scan. 3. Diabetes mellitus type 2, uncontrolled: [place] is high ranging from 200- 425. Continue Accu-Cheks. Started on Lantus 10 units twice daily. 4. Other comorbidities include GERD, chronic constipation: On laxatives. Patient was told to follow-up with PCP or possible GI for further work-up for chronic constipation. DVT prophylaxis: Lovenox 40 g subcu daily Laboratory Results 03/09/19 19:10: Urine Color Yellow, Urine Clarity Clear, Urine pH 6.0, Ur Specific [place] 1.015, Urine Protein 15 H, Urine Glucose (UA) 1000 H, Urine Ketones 15 H, Urine Occult Blood 25 H, Urine Nitrite Negative, Urine Bilirubin Negative, Urine Urobilinogen Normal, Ur Leukocyte Esterase 100 H, Urine RBC 0 SEEN, Urine WBC 25-50 SEEN, Ur Squamous Epith Cells 0 SEEN, Urine Bacteria RARE, Urine Mucus 0 SEEN 03/09/19 19:20: WBC 14.9 H, RBC 5.15, Hgb 15.8, Hct 45.4, MCV 88.2, MCH 30.7, MCHC 34.8, RDW Std Deviation 41.1, RDW Coeff of Maria Del Rosario 12.5, Plt Count 169, MPV 10.6, Immature Gran % (Auto) 0.500, Neut % (Auto) 77.0 H, Lymph % (Auto) 13.6 L, [place] % (Auto) 8.4, Eos % (Auto) 0.2, Baso % (Auto) 0.3, Absolute Neuts (auto) 11.4 H, Absolute Lymphs (auto) 2.02, Nucleated RBC % 0 03/09/19 19:20: Sodium 134 L, Potassium 4.2, Chloride 101, Carbon Dioxide 29.0, Anion Gap 4 L, BUN 17, Creatinine 1.02, Estim Creat Clear Calc 87.47, Est GFR (MDRD) Af Amer 99, Est GFR (MDRD) Non-Af 82, BUN/Creatinine Ratio 16.7, Glucose 335 H, Calcium 8.7 03/09/19 19:20: Lactic Acid 1.4 03/09/19 22:35: POC Glucose 207 H 03/10/19 06:00: WBC 13.7 H, RBC 4.85, Hgb 14.6, Hct 43.4, MCV 89.5, MCH 30.1, MCHC 33.6, RDW Std Deviation 42.2, RDW Coeff of Maria Del Rosario 12.8, Plt Count 158, MPV 10.7, Immature Gran % (Auto) 0.500, Neut % (Auto) 74.2 H, Lymph % (Auto) 15.2 L, [place] % (Auto) 9.3, Eos % (Auto) 0.6, Baso % (Auto) 0.2, Absolute Neuts (auto) 10.2 H, Absolute Lymphs (auto) 2.09, Nucleated RBC % 0 03/10/19 06:00: Sodium 136, Potassium 4.2, Chloride 104, Carbon Dioxide 24.0, Anion Gap 8, BUN 12, Creatinine 0.83, Estim Creat Clear Calc 107.50, Est GFR (MDRD) Af Amer 126, Est GFR (MDRD) Non-Af 104, BUN/Creatinine Ratio 14.5, Glucose 256 H, Calcium 8.0 L 03/10/19 06:36: POC Glucose 256 H 03/10/19 11:07: POC Glucose 425 H Clinical Impression(s) from Imaging Studies Abdomen/Pelvis CT 03/09/19 20:41 IMPRESSION: Tiny nonobstructing left renal calculi. Nonspecific fatty infiltration of the liver. Status postcholecystectomy Diverticular changes of the colon without evidence for acute diverticulitis Mild nonspecific thickening of the cortes of bladder which may be consistent with cystitis however clinical correlation recommended Code Visit Inpatient E&M: 53153 Subs Hosp L3
[2019-03-10 09:40] VITALS: BP 139/86; PULSE 86; RESP 18; TEMP 37; O2SAT 96
[2019-03-10] MEDS: Tamsulosin HCl 0.4 MG Capsule PO (10:09)
[2019-03-10] MEDS: Polyethylene Glycol 3350 17 GM PACKET PO (10:09)
[2019-03-10] MEDS: Pantoprazole Sodium 20 MG Tablet PO ×2 (10:10→21:50)
[2019-03-10] MEDS: Enoxaparin 40 MG/0.4 ML Syringe SC (10:10)
[2019-03-10 11:15] LABS: Bedside Glucose 425 mg/dL (70-110)
--- NOTE | 2019-03-10 11:34 | CASEMGMT ---
Social Work Note BARRERA met with pt as pt is listed as Self-Pay. SW introduced self and role at [facility]. Pt is alert and orientated x4. 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 Pt states that he makes between $40,000-$50,000 a year and makes too much for Medicaid. Pt states that he plans on getting insurance this May during the enrollment period. Pt states he tried to get insurance last year but missed the enrollment period and had to wait until this year's enrollment period. SW provided pt with HCAP application, Mey Johnson, Rx assistance, [employer] and [employer]. SW provided pt with [employer] number and encouraged pt to call with any questions regarding HCAP. Pt state she has no financial concerns at this time except he is concerned about his hospital bill. SW encouraged pt to call [employer] once he receives bill to discuss payment plans. Pt states understanding, denied additional needs or concerns at this time. Plan: Home Jeanne Prince REGULATORY COMPLIANCE COORDINATOR, UX CONSULTANT
[2019-03-10] MEDS: Fleet Enema 1 ML RECTAL (12:43)
--- NOTE | 2019-03-10 13:35 | NURSING ---
Patient off unit for ultrasound.
[2019-03-10] MEDS: 0.9% NaCl Peripheral Flush Adult/Peds IV (15:32)
[2019-03-10 15:37] VITALS: BP 134/89; PULSE 91; RESP 16; TEMP 36.8; O2SAT 97
[2019-03-10 16:30] LABS: Bedside Glucose 325 mg/dL (70-110)
[2019-03-10 21:37] VITALS: BP 152/98; PULSE 90; RESP 16; TEMP 36.8; O2SAT 96
[2019-03-10] MEDS: Ceftriaxone 1 GM/50 ML BAG IV (21:43)
[2019-03-10 22:41] LABS: Bedside Glucose 427 mg/dL (70-110)
[2019-03-11 03:37] VITALS: BP 138/90; PULSE 81; RESP 16; TEMP 37.3; O2SAT 96
[2019-03-11] MEDS: 0.9% Normal Saline 1,000 ML 100 ML IV (05:04)
[2019-03-11] MEDS: Insulin Lispro 100 UNIT/ML INSULN.PEN SC ×4 (06:39→21:48)
[2019-03-11 06:51] LABS: Bedside Glucose 292 mg/dL (70-110)
[2019-03-11 08:58] LABS: Absolute Lymphocyte Count 1.43 X10^3/uL (0.83-4.51); Absolute Neutrophil Count 5.9 X10^3/uL (2.0-7.7); Basophil# 0.04 X10^3/uL; Basophil% 0.5 % (0-1); Eosinophil# 0.13 X10^3/uL; Eosinophils% 1.5 % (0-5); Hematocrit 44.4 % (40-54); Hemoglobin 15.3 g/dL (13.0-16.5); Lymphocyte # 1.43 X10^3/ul (4.0); Lymphocyte % 16.9 % (19-41); Mean Corp Hgb Conc 34.5 g/dL (32-36); Mean Corpuscular Hgb 31.2 pg (27.0-32.0); Mean Corpuscular Volume 90.6 fL (80-94); Mean Platelet Vol. 10.4 fl (6.2-12.0); Monocyte# 0.92 X10^3/uL; Monocyte% 10.9 % (0-10); NRBC Flagged by Analyzer 0 % (0-5); Neutrophil # 5.91 X10^3/uL (2.7-7.7); Neutrophil % 69.8 % (47-70); Platelet Count 185 K/mm3 (150-450); RBC Distribution Width CV 12.5 % (11.6-14.6); RBC Distribution Width SD 41.7 fl (35.1-43.9); White Blood Count 8.5 K/mm3 (4.4-11.0)
[2019-03-11 09:18] LABS: Anion Gap 7 (5-15); BUN 11 mg/dL (7-18); BUN/Creat Ratio 10.2 RATIO (10-20); Calcium,Total 8.3 mg/dL (8.5-10.1); Chloride 102 mmol/L (98-107); Creatinine, Serum 1.08 mg/dL (0.70-1.30); EST Glomerular Filtration Rate 76 mL/min (>60); Est Glom Filt Rate - Afr Amer 92 mL/min (>60); Estimated Creatinine Clearance 82.61 ml/min; Glucose 450 mg/dL (74-106); Potassium 4.4 mmol/L (3.5-5.1); Sodium Level 132 mmol/L (136-145)
[2019-03-11 09:20] VITALS: BP 134/81; PULSE 81; RESP 18; TEMP 36.6; O2SAT 95
[2019-03-11] MEDS: Tamsulosin HCl 0.4 MG Capsule PO (09:31)
[2019-03-11] MEDS: Pantoprazole Sodium 20 MG Tablet PO ×2 (09:31→21:38)
[2019-03-11] MEDS: Polyethylene Glycol 3350 17 GM PACKET PO (09:32)
[2019-03-11] MEDS: Enoxaparin 40 MG/0.4 ML Syringe SC (09:32)
--- NOTE | 2019-03-11 11:17 | CASEMGMT ---
Addendum entered by Nathaly Schumacher 03/11/19 11:26: SW let pt know we do not have a copy of his LW here, pt states he thinks he has this document at home with his will. SW also pointed out to pt that his date of is not on the POA form we have here. Pt states he thinks his copy at home does have the date of . GIANLUCA Morin Original Note: POA form is scanned into the summary tab in [id number]. There is not a separate living will, however pt did initial the living will provision in the POA form. GIANLUCA Morin
[2019-03-11 11:46] LABS: Bedside Glucose 379 mg/dL (70-110)
--- NOTE | 2019-03-11 14:31 | PCM.HP.ID ---
Problem List (1) Prostatitis Status: Acute Reason for Consult: prostatitis Consulted by: Dr. Yu History of Present Illness: The patient is a 54 year old M with h/o T2DM, uti in the spring with klebs who presented with 3 weeks of burning dysuria, lower abd pain, some L flank pain, and frequent urination. Would have to get up and urinate q30min at night. No straining or incomplete emptying. Had some perineal pain. No recent outpt abx. Developed some fever and chills. Came to ED, admitted on ceftriaxone, feeling better. Dysuria improved. Pain with ALLEN and prostate u/s. Full ROS performed and neg except as noted above. - Medical History Past Medical History (Chronic Problems): Chronic Problems GERD (gastroesophageal reflux disease) (Chronic) Type 2 diabetes mellitus (Chronic) Allergies/Adverse Reactions: Allergies No Known Allergies Allergy (Verified 03/09/19 18:41) Home Medications: Ambulatory Orders Medication Instructions Recorded Metformin HCl 1,000 mg PO BID 03/09/19 Omeprazole Magnesium [Prilosec Otc] 20 mg PO BID 03/09/19 - Social History Tobacco Use: non-smoker Vital Signs Temp Pulse Resp BP Pulse Ox 97.8 F 81 18 134/81 H 95 03/11/19 09:20 03/11/19 09:20 03/11/19 09:20 03/11/19 09:20 03/11/19 09:20 Oxygen Delivery Method Room Air Weight: 100.3 kg Body Mass Index (BMI) 31.7 Finger Stick Blood Glucose 139 Laboratory Tests Past 24 Hrs 03/10/19 03/11/19 03/11/19 06:00 08:48 08:48 WBC 8.5 RBC 4.90 Hgb 15.3 Hct 44.4 MCV 90.6 MCH 31.2 MCHC 34.5 RDW Std Deviation 41.7 RDW Coeff of Maria Del Rosario 12.5 Plt Count 185 MPV 10.4 Immature Gran % (Auto) 0.400 Neut % (Auto) 69.8 Lymph % (Auto) 16.9 L [place] % (Auto) 10.9 H Eos % (Auto) 1.5 Baso % (Auto) 0.5 Absolute Neuts (auto) 5.9 Absolute Lymphs (auto) 1.43 Nucleated RBC % 0 Sodium 132 L Potassium 4.4 Chloride 102 Carbon Dioxide 23.0 Anion Gap 7 BUN 11 Creatinine 1.08 Estim Creat Clear Calc 82.61 Est GFR (MDRD) Af Amer 92 Est GFR (MDRD) Non-Af 76 BUN/Creatinine Ratio 10.2 Glucose 450 H Hemoglobin A1c 13.0 H Calcium 8.3 L - Other Studies Radiology: [] reviewed Other Studies: [] Route of nutrition/ use of supplements: [] Nutritional Intake: [] IV Site: [] Toney Catheter: [] - Physical Exam General: Alert, Oriented x3, Cooperative, No apparent distress HEENT: Atraumatic, PERRLA, EOMI Neck: Supple, No Nodes Lungs: Clear to auscultation, Normal air movement Cardiovascular: Regular rate, Regular Rhythm Abdomen: Soft, Non Tender, Non-Distended, - - no flank pain Extremities: No edema Skin: No rashes IV Site: Peripheral Musculoskeletal: No Tenderness to Palpation of Joints or Extremities Neurological: Cranial nerves II-XII grossly intact - Assessment/Plan Antibiotics: [] Assessment/Plan: [] Active and Suspected Problems UTI (urinary tract infection) (Acute) prostatitis - improving, ucx pending. On ceftriaxone, will add bactrim as plan hopefully will be for him to go home on bactrim DS bid for 6 week course. Will follow, thank you.
--- NOTE | 2019-03-11 14:51 | PN_ITS ---
Patient Problems: Active and Suspected Problems UTI (urinary tract infection) (Acute) Prostatitis (Acute) Subjective: Patient states burning micturition improving on IV antibiotics. Discussed with the infectious disease systems development consultant. Fever, chills or tachycardia. Urine and blood cultures are pending. Vitals/I&O's: Vital Signs Temp Pulse Resp BP Pulse Ox 97.8 F 81 18 134/81 H 95 03/11/19 09:20 03/11/19 09:20 03/11/19 09:20 03/11/19 09:20 03/11/19 09:20 Oxygen Delivery Method Room Air Weight: 221 lb 1.978 oz Body Mass Index (BMI) 31.7 Finger Stick Blood Glucose 139 Intake and Output for Last 24 Hours 03/09/19 03/10/19 03/11/19 23:59 23:59 23:59 Intake Total 1050 / 1410 3795.01 / 4495.01 2551.67 / 2551.67 Balance 1050 / 1410 3795.01 / 4495.01 2551.67 / 2551.67 General: Alert, Oriented x3, Cooperative HEENT: Atraumatic, PERRLA, EOMI, Normocephalic Neck: Supple, No JVD, Negative Carotid Bruits Lungs: Clear to auscultation, Normal air movement, No rhonchi, No wheeze, No rales Cardiovascular: Regular rate, Regular Rhythm, Normal S1, Normal S2, No murmurs Abdomen: Bowel Sounds Present, Soft, Non Tender, Non-Distended Extremities: No edema, Capillary Refill Less than 3 Seconds Skin: No rashes, No breakdown Musculoskeletal: No Tenderness to Palpation of Joints or Extremities Neurological: Cranial nerves II-XII grossly intact, Deep Tendon Reflexes 2+/4 and Symmetrical, Neuro grossly intact Psych/Mental Status: Normal Affect, Appropriate Microbiology Past 72 Hours 03/10/19 07:10 Urine, Clean Catch Urine Culture - Preliminary GNR lactose child care director Laboratory Results 03/10/19 06:00: Hemoglobin A1c 13.0 H 03/10/19 16:22: POC Glucose 325 H 03/10/19 21:41: POC Glucose 427 H 03/11/19 06:37: POC Glucose 292 H 03/11/19 08:48: WBC 8.5, RBC 4.90, Hgb 15.3, Hct 44.4, MCV 90.6, MCH 31.2, MCHC 34.5, RDW Std Deviation 41.7, RDW Coeff of Maria Del Rosario 12.5, Plt Count 185, MPV 10.4, Immature Gran % (Auto) 0.400, Neut % (Auto) 69.8, Lymph % (Auto) 16.9 L, [place] % (Auto) 10.9 H, Eos % (Auto) 1.5, Baso % (Auto) 0.5, Absolute Neuts (auto) 5.9, Absolute Lymphs (auto) 1.43, Nucleated RBC % 0 03/11/19 08:48: Sodium 132 L, Potassium 4.4, Chloride 102, Carbon Dioxide 23.0, Anion Gap 7, BUN 11, Creatinine 1.08, Estim Creat Clear Calc 82.61, Est GFR (MDRD) Af Amer 92, Est GFR (MDRD) Non-Af 76, BUN/Creatinine Ratio 10.2, Glucose 450 H, Calcium 8.3 L 03/11/19 11:39: POC Glucose 379 H Current Medications Acetaminophen (Tylenol) 650 mg PO Q6H PRN PRN PRN Reason: Mild Pain (1-3)/Temp > 100.7 F Bisacodyl (Dulcolax) 10 mg RECTAL DAILY PRN PRN PRN Reason: Constipation Dextrose (D50w Syringe) 0 gm IV X1 PRN; Protocol PRN Reason: Hypoglycemia Enoxaparin Sodium (Lovenox) 40 mg SC DAILY@1000 JORGE Last Admin: 03/11/19 09:32 Dose: 40 mg Documented by: Glucagon () 1 mg IM .X1 PRN PRN Reason: Hypoglycemia Ceftriaxone Sodium (Rocephin) 1 gm in 50 mls @ 100 mls/hr IV Q24@2200 [facility] Last Infusion: 03/10/19 23:16 Dose: Infused Documented by: Sodium Chloride () 250 mls @ 15 mls/hr IV .[id number] PRN PRN Reason: SALINE FLUSH Insulin Glargine (Lantus (Bk)) 10 units SC BID [facility] Last Admin: 03/11/19 09:32 Dose: 10 u Documented by: Insulin Human Lispro (Humalog Kwikpen (Bk)) 0 unit SC ACHS [facility]; Protocol Last Admin: 03/11/19 12:30 Dose: 10 u Documented by: Metformin HCl (Glucophage) 1,000 mg PO BIDCOX MONETT Last Admin: 03/09/19 22:23 Dose: Not Given Documented by: Morphine Sulfate () 2 mg IV Q3H PRN PRN PRN Reason: Severe pain (7-10/10) Last Admin: 03/09/19 22:27 Dose: 2 mg Documented by: Ondansetron HCl (Zofran) 4 mg IV Q8H PRN PRN PRN Reason: NAUSEA/VOMITING Oxycodone HCl (Oxyir) 5 mg PO Q4H PRN PRN PRN Reason: Moderate Pain (4-6/10) Last Admin: 03/10/19 20:19 Dose: 5 mg Documented by: Pantoprazole Sodium (Protonix) 20 mg PO BID [facility] Last Admin: 03/11/19 09:31 Dose: 20 mg Documented by: Polyethylene Glycol (Miralax) 17 gm PO DAILY [facility] Last Admin: 03/11/19 09:32 Dose: 17 gm Documented by: Senna/Docusate Sodium (Senokot-S, Chasity-Colace) 2 tablet PO BID PRN PRN Reason: CONSTIPATION Sodium Chloride () 10 - 40 ml IV UD PRN PRN Reason: SALINE FLUSH Last Admin: 03/10/19 15:32 Dose: 10 ml Documented by: Tamsulosin HCl (Flomax) 0.4 mg PO DAILY@0830 [facility] Last Admin: 03/11/19 09:31 Dose: 0.4 mg Documented by: Trimethoprim/Sulfamethoxazole (Bactrim Ds) 1 tablet PO BID [facility] Medical Necessity - Tobacco Use Smoking Status: Never smoker Assessment/Plan All Active Problems UTI (urinary tract infection) (Acute) Prostatitis (Acute) The patient has history of dysuria, burning micturition and penile urethra, increased frequency urgency for last 3 weeks. Prior to that, he was admitted in October 2017 for UTI/cystitis and urine culture grew Klebsiella and completed treatment with cefdinir as per culture and sensitivity. This time, patient had low-grade fever, suprapubic/lower abdominal pain along with left flank pain. Patient had leukocytosis 14.900 with left shift. Had mild tachycardia 118/min. Patient has chronic constipation for about 3 years. Patient had colonoscopy about 4 to 5 years ago but no significant finding as per patient. CT abdomen was done which showed tiny nonobstructing left renal calculi. Mild nonspecific thickening of bladder wall. 1. Complicated UTI with acute/subacute prostatitis with possible BPH: Patient is being [facility] floor. On IV antibiotic ceftriaxone. Prostatic tenderness was found on [facility] examination. Cultures and urine cultures are pending. Prostate ultrasound reported as an unremarkable. No nodules found. Prostate volume 37.9 cc. Prostate glandular tissue appears normal. Seminal vesicles normal without evidence of nodules or lesions. 2. Possible BPH: Patient prostate was found to be enlarged on [facility] examination. On Flomax. 3. Diabetes mellitus type 2, uncontrolled: [place]uc[place] is high ranging from 292- 425. A1c 13.0. Continue Accu-Cheks. Increase Lantus 15 units twice daily 4. Other comorbidities include GERD, chronic constipation: On laxatives. Patient was told to follow-up with PCP or possible GI for further work-up for chronic constipation. DVT prophylaxis: Lovenox 40 g subcu daily Microbiology Past 72 Hours 03/10/19 07:10 Urine, Clean Catch Urine Culture - Preliminary GNR lactose child care director Laboratory Results 03/10/19 06:00: Hemoglobin A1c 13.0 H 03/10/19 16:22: POC Glucose 325 H 03/10/19 21:41: POC Glucose 427 H 03/11/19 06:37: POC Glucose 292 H 03/11/19 08:48: WBC 8.5, RBC 4.90, Hgb 15.3, Hct 44.4, MCV 90.6, MCH 31.2, MCHC 34.5, RDW Std Deviation 41.7, RDW Coeff of Maria Del Rosario 12.5, Plt Count 185, MPV 10.4, Immature Gran % (Auto) 0.400, Neut % (Auto) 69.8, Lymph % (Auto) 16.9 L, [place] % (Auto) 10.9 H, Eos % (Auto) 1.5, Baso % (Auto) 0.5, Absolute Neuts (auto) 5.9, Absolute Lymphs (auto) 1.43, Nucleated RBC % 0 03/11/19 08:48: Sodium 132 L, Potassium 4.4, Chloride 102, Carbon Dioxide 23.0, Anion Gap 7, BUN 11, Creatinine 1.08, Estim Creat Clear Calc 82.61, Est GFR (MDRD) Af Amer 92, Est GFR (MDRD) Non-Af 76, BUN/Creatinine Ratio 10.2, Glucose 450 H, Calcium 8.3 L 03/11/19 11:39: POC Glucose 379 H Clinical Impression(s) from Imaging Studies Abdomen/Pelvis CT 03/09/19 20:41 IMPRESSION: Tiny nonobstructing left renal calculi. Nonspecific fatty infiltration of the liver. Status postcholecystectomy Diverticular changes of the colon without evidence for acute diverticulitis Mild nonspecific thickening of the cortes of bladder which may be consistent with cystitis however clinical correlation recommended Prostate Ultrasound 03/10/19 09:01 IMPRESSION: Unremarkable sonogram of the prostate. Code Visit Inpatient E&M: 23969 Subs Hosp L2
[2019-03-11 16:11] VITALS: BP 125/82; PULSE 88; RESP 18; TEMP 37.1; O2SAT 95
[2019-03-11] MEDS: Insulin Lispro 100 UNIT/ML INSULN.PEN 10 UNIT SC (17:26)
[2019-03-11] MEDS: Smz/Tmp Ds Tablet 1 TABLET PO (17:29)
[2019-03-11 17:51] LABS: Bedside Glucose 304 mg/dL (70-110)
[2019-03-11 19:32] VITALS: BP 140/97; PULSE 94; RESP 16; TEMP 36.9; O2SAT 98
[2019-03-11] MEDS: Ceftriaxone 1 GM/50 ML BAG IV (21:38)
[2019-03-11 21:56] LABS: Bedside Glucose 270 mg/dL (70-110)
[2019-03-11] MEDS: 0.9% NaCl Peripheral Flush Adult/Peds IV (22:19)
[2019-03-12 02:30] VITALS: BP 138/82; PULSE 90; RESP 16; TEMP 37; O2SAT 98
[2019-03-12 06:26] LABS: Absolute Lymphocyte Count 1.98 X10^3/uL (0.83-4.51); Absolute Neutrophil Count 4.7 X10^3/uL (2.0-7.7); Basophil# 0.04 X10^3/uL; Basophil% 0.5 % (0-1); Eosinophil# 0.15 X10^3/uL; Eosinophils% 1.9 % (0-5); Hematocrit 48.3 % (40-54); Hemoglobin 16.2 g/dL (13.0-16.5); Lymphocyte # 1.98 X10^3/ul (4.0); Lymphocyte % 25.1 % (19-41); Mean Corp Hgb Conc 33.5 g/dL (32-36); Mean Corpuscular Hgb 30.1 pg (27.0-32.0); Mean Corpuscular Volume 89.6 fL (80-94); Mean Platelet Vol. 10.2 fl (6.2-12.0); Monocyte# 0.95 X10^3/uL; Monocyte% 12.1 % (0-10); NRBC Flagged by Analyzer 0 % (0-5); Neutrophil # 4.73 X10^3/uL (2.7-7.7); Platelet Count 216 K/mm3 (150-450); RBC Distribution Width CV 12.8 % (11.6-14.6); Red Blood Count 5.39 M/mm3 (4.6-6.2); White Blood Count 7.9 K/mm3 (4.4-11.0)
[2019-03-12 06:40] LABS: Anion Gap 8 (5-15); BUN 11 mg/dL (7-18); BUN/Creat Ratio 10.8 RATIO (10-20); Calcium,Total 8.9 mg/dL (8.5-10.1); Chloride 100 mmol/L (98-107); Creatinine, Serum 1.02 mg/dL (0.70-1.30); EST Glomerular Filtration Rate 82 mL/min (>60); Est Glom Filt Rate - Afr Amer 99 mL/min (>60); Estimated Creatinine Clearance 87.47 ml/min; Glucose 279 mg/dL (74-106); Potassium 4.5 mmol/L (3.5-5.1); Sodium Level 137 mmol/L (136-145)
[2019-03-12 06:45] LABS: Bedside Glucose 295 mg/dL (70-110)
[2019-03-12 08:14] VITALS: BP 150/95; PULSE 84; RESP 18; TEMP 36.7; O2SAT 96
[2019-03-12] MEDS: Insulin Lispro 100 UNIT/ML INSULN.PEN SC (08:17)
[2019-03-12] MEDS: Insulin Lispro 100 UNIT/ML INSULN.PEN 10 UNIT SC (08:18)
[2019-03-12] MEDS: Smz/Tmp Ds Tablet 1 TABLET PO (08:18)
[2019-03-12] MEDS: metFORMIN HCl 500 MG Tablet 1000 MG PO (08:18)
[2019-03-12] MEDS: Tamsulosin HCl 0.4 MG Capsule PO (08:19)
--- NOTE | 2019-03-12 09:18 | DCINST_ITS ---
- Discharge Diagnoses Current Active Problems: Current Active and Chronic Problems UTI (urinary tract infection) (Acute) Prostatitis (Acute) You will use the following diet at home:: Calorie/Carbohydrate Controlled (specify 1200, 1400, etc) - 1600 ADA diet Your food should be the consistency of: Regular Discharge Activity: Return to Normal Activity, May Not Drive - if feeling dizzy/sweating/hypoglycemic symtoms. Weight Bearing Status: Weight bearing as tolerated Call your doctor if you observe: Fever of 101 or Higher, Inability to urinate, Inability to have a bowel movement, Shortness of breath, Dizziness, Fainting spells, Swelling in the ankles, Chest pain, Increased palpitations (irregular heartbeat), Uncontrolled pain Allergies/Adverse Reactions: Allergies No Known Allergies Allergy (Verified 03/09/19 18:41) Medications to take at Discharge Metformin HCl 1,000 mg PO BID 03/09/19 Omeprazole Magnesium [Prilosec Otc] 20 mg PO BID 03/09/19 Glimepiride [Amaryl] 2 mg PO DAILY #30 tab 03/12/19 Insulin Lispro Protamin/Lispro [Humalog Mix 75-25 Vial] 15 unit SQ BID #1 ml 03/12/19 Tamsulosin HCl [Flomax] 0.4 mg PO DAILY@0830 #30 cap 03/12/19 The following prescriptions were given: Glimepiride [Amaryl] 2 mg PO DAILY #30 tab Transmission Status: P[facility] to [id number] Tamsulosin HCl [Flomax] 0.4 mg PO DAILY@0830 #30 cap Transmission Status: Pending to [id number] Insulin Lispro Protamin/Lispro [Humalog Mix 75-25 Vial] 15 unit SQ BID #1 ml Transmission Status: [facility]ending [id number] Primary Care Physician: Viktor Parisi [Primary Care Provider] - Please follow up with your Primary Care Physician in: in 1 week Test Results: Test results from this visit will be discussed in further detail at your follow- up appointment, if applicable. Please Follow Up With: Carter Avitia MD When: in 3-4 weeks Please Follow Up With: Ziyad Horvath MD When: BPH and acute prostatitis
[2019-03-12] MEDS: Pantoprazole Sodium 20 MG Tablet PO (09:21)
--- NOTE | 2019-03-12 09:21 | PCM.DC.SUM ---
Discharge Date and Diagnosis Date of Admission: 03/09/19 Date of Discharge: 03/12/19 - Primary Discharge Diagnosis Active and Suspected Problems UTI (urinary tract infection) (Acute) Prostatitis (Acute) - Secondary Discharge Diagnosis Chronic Problems GERD (gastroesophageal reflux disease) (Chronic) Type 2 diabetes mellitus (Chronic) Hospital Course and Treatment Operations: None Summary of Care Provided: The patient is a 54 year old M WAS admitted with history of dysuria, burning micturition along penile urethra, increased frequency and urgency, low-grade fevers suprapubic/lower abdominal heaviness/pain and sometimes left flank pain for last 3 weeks consistent with UTI. Prior to that, he was admitted in October 2017 for UTI/cystitis and urine culture grew Klebsiella and completed treatment with cefdinir as per culture and sensitivity. Patient had leukocytosis 14.900 with left shift. Had mild tachycardia 118/min. CT abdomen was done which showed tiny nonobstructing left renal calculi. Mild nonspecific thickening of bladder wall. 1. Complicated UTI with acute/subacute prostatitis with possible BPH: Patient is being admitted on [facility] floor. On IV antibiotic ceftriaxone. Prostatic tenderness was found on ID examination. Prostate ultrasound reported as an unremarkable. No nodules found. Prostate volume 37.9 cc. Prostate glandular tissue appears normal. Seminal vesicles normal without evidence of nodules or lesions. ID was consulted. Urine culture grew more than 100,000 Klebsiella pneumoniae; pansensitive. ID prescribed Bactrim DS 1 tablet twice daily for 6 weeks. Prescription given for follow-up BMP after 1 week. Follow-up with ID in 3 to 4 weeks. Follow-up with urologist Dr. Horvath with home discussed in 3 to 4 weeks. 2. Possible BPH: Patient prostate was found to be enlarged on ID examination. On Flomax. Option for Flomax given. 3. Diabetes mellitus type 2, uncontrolled: [place]uc[place] is high ranging from 292-425. A1c 13.0. Subsequently, Lantus was increased to 20 units twice daily. Patient is discharged on metformin 1000 mg twice daily, glimepiride 2 mg daily and Humalog Mix 75/25 15 units subcutaneous twice daily. Follow-up with [facility] in 1 week to further titrate the dose of insulin as per Accu-Cheks before meals and at bedtime. Supplies for insulin needles was given. 4. Other comorbidities include GERD, chronic constipation: On laxatives. Patient was told to follow-up with PCP or possible GI for further work-up for chronic constipation. Advised MiraLAX 17 g daily. DVT prophylaxis: Lovenox 40 mg subcu daily Discharge medication reconciliation done. Discharge follow-up instructions completed. Discharge process discussed with the patient and all questions were answered to patient's satisfaction. Follow-up with urologist and ID as mentioned above. Prescription given to assistant case manager and was made available through [facility]. Total time spent, exact 35 minutes on discharge meds reconciliation, examination, review of imaging and blood test and discussion with the patient on follow-up instructions. [] Microbiology Past 72 Hours 03/10/19 07:10 Urine, Clean Catch Urine Culture - Final Klebsiella pneumoniae sp pneum Laboratory Results 03/11/19 17:24: POC Glucose 304 H 03/11/19 21:46: POC Glucose 270 H 03/12/19 05:45: WBC 7.9, RBC 5.39, Hgb 16.2, Hct 48.3, MCV 89.6, MCH 30.1, MCHC 33.5, RDW Std Deviation 42.0, RDW Coeff of Maria Del Rosario 12.8, Plt Count 216, MPV 10.2, Immature Gran % (Auto) 0.400, Neut % (Auto) 60.0, Lymph % (Auto) 25.1, [place] % (Auto) 12.1 H, Eos % (Auto) 1.9, Baso % (Auto) 0.5, Absolute Neuts (auto) 4.7, Absolute Lymphs (auto) 1.98, Nucleated RBC % 0 03/12/19 05:45: Sodium 137, Potassium 4.5, Chloride 100, Carbon Dioxide 29.0, Anion Gap 8, BUN 11, Creatinine 1.02, Estim Creat Clear Calc 87.47, Est GFR (MDRD) Af Amer 99, Est GFR (MDRD) Non-Af 82, BUN/Creatinine Ratio 10.8, Glucose 279 H, Calcium 8.9 03/12/19 06:39: POC Glucose 295 H Clinical Impression(s) from Imaging Studies Abdomen/Pelvis CT 03/09/19 20:41 IMPRESSION: Tiny nonobstructing left renal calculi. Nonspecific fatty infiltration of the liver. Status postcholecystectomy Diverticular changes of the colon without evidence for acute diverticulitis Mild nonspecific thickening of the cortse of bladder which may be consistent with cystitis however clinical correlation recommended Prostate Ultrasound 03/10/19 09:01 IMPRESSION: Unremarkable sonogram of the prostate. Subjective: Seen and examined. No fever or chills. No tachycardia. Blood pressure is controlled. Blood sugars are elevated between 250-300 even on high-dose of Lantus and Humalog insulin. Insulin dose further titrated up. Patient denies dysuria or increased frequency urgency. Patient does not have insurance therefore his prescriptions are made available through [facility]. - Physical Exam General: Alert, Oriented x3, Cooperative HEENT: Atraumatic, PERRLA, EOMI, Normocephalic Neck: Supple, No JVD, Negative Carotid Bruits Lungs: Clear to auscultation, Normal air movement, No rhonchi, No wheeze, No rales Cardiovascular: Regular rate, Regular Rhythm, Normal S1, Normal S2, No murmurs Abdomen: Bowel Sounds Present, Soft, Non Tender, Non-Distended Extremities: No edema, Capillary Refill Less than 3 Seconds Skin: No rashes, No breakdown Musculoskeletal: No Tenderness to Palpation of Joints or Extremities, Arthritic Changes Neurological: Cranial nerves II-XII grossly intact Psych/Mental Status: Normal Affect, Appropriate Vital Signs Temp Pulse Resp BP Pulse Ox 98.1 F 84 18 150/95 H 96 03/12/19 08:14 03/12/19 08:14 03/12/19 08:14 03/12/19 08:14 03/12/19 08:14 Oxygen Delivery Method Room Air Weight: 221 lb 1.978 oz Body Mass Index (BMI) 31.7 Finger Stick Blood Glucose 139 Intake and Output for Last 24 Hours 03/10/19 03/11/19 03/12/19 23:59 23:59 23:59 Intake Total 3795.01 / 4495.01 3061.67 / 3061.67 Balance 3795.01 / 4495.01 3061.67 / 3061.67 Microbiology Past 72 Hours 03/10/19 07:10 Urine Culture - Final Urine, Clean Catch Klebsiella pneumoniae sp pneum Laboratory Tests Past 24 Hrs 03/12/19 03/12/19 05:45 05:45 WBC 7.9 RBC 5.39 Hgb 16.2 Hct 48.3 MCV 89.6 MCH 30.1 MCHC 33.5 RDW Std Deviation 42.0 RDW Coeff of Maria Del Rosario 12.8 Plt Count 216 MPV 10.2 Immature Gran % (Auto) 0.400 Neut % (Auto) 60.0 Lymph % (Auto) 25.1 Robertson % (Auto) 12.1 H Eos % (Auto) 1.9 Baso % (Auto) 0.5 Absolute Neuts (auto) 4.7 Absolute Lymphs (auto) 1.98 Nucleated RBC % 0 Sodium 137 Potassium 4.5 Chloride 100 Carbon Dioxide 29.0 Anion Gap 8 BUN 11 Creatinine 1.02 Estim Creat Clear Calc 87.47 Est GFR (MDRD) Af Amer 99 Est GFR (MDRD) Non-Af 82 BUN/Creatinine Ratio 10.8 Glucose 279 H Calcium 8.9 POC Glucose 03/12/19 03/11/19 03/11/19 06:39 21:46 17:24 POC Glucose 295 H 270 H 304 H 03/11/19 11:39 POC Glucose 379 H Discharge Activity: Return to Normal Activity, May Not Drive - if feeling dizzy/sweating/hypoglycemic symtoms. Weight Bearing Status: Weight bearing as tolerated Call your doctor if you observe: Fever of 101 or Higher, Inability to urinate, Inability to have a bowel movement, Shortness of breath, Dizziness, Fainting spells, Swelling in the ankles, Chest pain, Increased palpitations (irregular heartbeat), Uncontrolled pain Home Medications: Medications to take at Discharge Metformin HCl 1,000 mg PO BID 03/09/19 Omeprazole Magnesium [Prilosec Otc] 20 mg PO BID 03/09/19 Glimepiride [Amaryl] 2 mg PO DAILY #30 tab 03/12/19 Insulin Lispro Protamin/Lispro [Humalog Mix 75-25 Vial] 15 unit SQ BID #1 ml 03/12/19 Smz/Tmp Ds [Bactrim Ds] 1 tab PO BIDCM 40 Days #80 tab 03/12/19 Tamsulosin HCl [Flomax] 0.4 mg PO DAILY@0830 #30 cap 03/12/19 Following Prescrptions Were Given to Patient: Glimepiride [Amaryl] 2 mg PO DAILY #30 tab Transmission Status: [facility] by [id number] Smz/Tmp Ds [Bactrim Ds] 1 tab PO BIDCM 40 Days #80 tab Transmission Status: Received by [id number] Tamsulosin HCl [Flomax] 0.4 mg PO DAILY@0830 #30 cap Transmission Status: [id number] Insulin Lispro Protamin/Lispro [Humalog Mix 75-25 Vial] 15 unit SQ BID #1 ml Transmission Status: Re[facility] by [id number] Other Amb Orders: Basic Metabolic Profile (BMP) Time Frame: 04/09/19, Location: Laboratory Primary Care Physician: Viktor Parisi [Primary Care Provider] - Please follow up with your Primary Care Physician in: in 1 week Please Follow Up With: Carter Avitia MD When: in 3-4 weeks Please Follow Up With: Ziyad Horvath MD When: BPH and acute prostatitis Medical Necessity - Tobacco Use Smoking Status: Never smoker Meaningful Use Info Meaningful Use Diagnoses (Choose all that apply): None applicable Code Visit Inpatient E&M: 17484 Disch Hosp
[2019-03-12 09:30] VITALS: PULSE 92
--- NOTE | 2019-03-12 10:24 | PCM.PN.ID ---
Patient Problems: Active and Suspected Problems UTI (urinary tract infection) (Acute) Prostatitis (Acute) Subjective: Feeling good, no pain, no dysuria, no rash with bactrim. - Physical Exam General: Alert, Cooperative, No apparent distress Lungs: Clear to auscultation, Normal air movement Cardiovascular: Regular rate, Regular Rhythm Abdomen: Soft, Non Tender, Non-Distended Skin: No rashes Vital Signs Temp Pulse Resp BP Pulse Ox 98.1 F 92 18 150/95 H 96 03/12/19 08:14 03/12/19 09:30 03/12/19 08:14 03/12/19 08:14 03/12/19 08:14 Oxygen Delivery Method Room Air Weight: 100.3 kg Body Mass Index (BMI) 31.7 Finger Stick Blood Glucose 139 Intake and Output for Last 24 Hours 03/10/19 03/11/19 03/12/19 23:59 23:59 23:59 Intake Total 3795.01 / 4495.01 3061.67 / 3061.67 Balance 3795.01 / 4495.01 3061.67 / 3061.67 Microbiology Past 72 Hours 03/10/19 07:10 Urine Culture - Final Urine, Clean Catch Klebsiella pneumoniae sp pneum Laboratory Tests Past 24 Hrs 03/12/19 03/12/19 05:45 05:45 WBC 7.9 RBC 5.39 Hgb 16.2 Hct 48.3 MCV 89.6 MCH 30.1 MCHC 33.5 RDW Std Deviation 42.0 RDW Coeff of Maria Del Rosario 12.8 Plt Count 216 MPV 10.2 Immature Gran % (Auto) 0.400 Neut % (Auto) 60.0 Lymph % (Auto) 25.1 [place] % (Auto) 12.1 H Eos % (Auto) 1.9 Baso % (Auto) 0.5 Absolute Neuts (auto) 4.7 Absolute Lymphs (auto) 1.98 Nucleated RBC % 0 Sodium 137 Potassium 4.5 Chloride 100 Carbon Dioxide 29.0 Anion Gap 8 BUN 11 Creatinine 1.02 Estim Creat Clear Calc 87.47 Est GFR (MDRD) Af Amer 99 Est GFR (MDRD) Non-Af 82 BUN/Creatinine Ratio 10.8 Glucose 279 H Calcium 8.9 POC Glucose 03/12/19 03/11/19 03/11/19 06:39 21:46 17:24 POC Glucose 295 H 270 H 304 H 03/11/19 11:39 POC Glucose 379 H Medical Necessity - Tobacco Use Smoking Status: Never smoker Route of nutrition/ use of supplements: [] Nutritional Intake: [] IV Site: [] Toney Catheter: [] - Assessment/Plan Antibiotics: [] Assessment/Plan: [] Active and Suspected Problems UTI (urinary tract infection) (Acute) prostatitis - improving, ucx with klebs. Ok for home on bactrim DS bid for 6 week course. BMP in one week, wrote rxs. Will follow as needed, d/w Dr. Yu
--- NOTE | 2019-03-12 10:41 | CASEMGMT ---
Social Work Note SW completed RX assist program and tubed to retail pharmacy. Jeanne Prince METAL SASH SETTER, FABRICATION SUPERVISOR
[2019-03-12 11:50] VITALS: BP 130/80; PULSE 98; RESP 18; TEMP 36.7; O2SAT 94
--- NOTE | 2019-03-12 15:40 | CASEMGMT ---
PRITESH CAMACHO updated that patient will require insulin at discharge. PRITESH CAMACHO called [facility] to inquire about cost of insulin. With savings card insulin with be $178.25. Patient updated regarding cost of insulin and he cannot afford insulin. PRITESH CAMACHO updated regarding RX assist program at [facility]. PRITESH CAMACHO called and asked that insulin order be transfer to [facility] retail RX. Cost of other discharging prescription are affordable for patient. CM will continue to follow this patient and plan for a safe discharge.
== END 2019-03-12 12:40 | disposition home or self-care (01) ==
LOC: ED 19:01 → MS3 20:46
PROVIDERS: Internal Medicine Infectious Disease; Admitting Provider Family Medicine; Emergency Provider Emergency Medicine; Family Provider Family Medicine; PCP Family Medicine; Visit Provider Internal Medicine
DX: N30.00 Acute cystitis without hematuria (principal); B96.1 Klebsiella pneumoniae [K. pneumoniae] as the cause of diseases classified elsewhere; E11.65 Type 2 diabetes mellitus with hyperglycemia; N41.1 Chronic prostatitis; K21.9 Gastro-esophageal reflux disease without esophagitis; Z79.84 Long term (current) use of oral hypoglycemic drugs; Z79.899 Other long term (current) drug therapy; Z91.14 Patient's other noncompliance with medication regimen
CPT/HCPCS: 36415; 74177; 76872; 80048; 81001; 82962; 83036; 83605; 85025; 87040; 87077; 87086; 87088; 87186; 96361; 96365; 96366; 96372; 96375; 99218; 99284; J7030; J7050; Q9967; A4216; G0378

== ENCOUNTER → 2019-07-07 08:10 | Outpatient (CLI) | payer OTHER, SELFPAY ==
[2019-03-09 21:39] VITALS: BMI 31.7
--- NOTE | 2019-07-07 08:14 | US_ITS ---
STUDY: ABDOMINAL ULTRASOUND REASON FOR EXAM: Male, 54 years old. ABD PAIN TECHNIQUE: Transabdominal ultrasound was performed with real-time and static ibrahim scale imaging. TECHNICAL QUALITY: Adequate. COMPARISON: None. FINDINGS: Liver: The liver measures 20.8 cm. There is increased echogenicity consistent with fatty infiltration. The bile ducts are within normal limits. There is hepatic color flow. The direction of portal flow is hepatopetal. There is no demonstrated mass lesion. Gallbladder: The patient is status post cholecystectomy. Common Bile Duct (C.B.D.): The common bile duct measures 5.8 mm. Pancreas: There is suboptimal assessment of the pancreas due to overlying bowel gas. Spleen: Normal size of the spleen. The spleen measures 9.9 x 4.4 x 5.2 cm. Right Kidney: Normal size of the right kidney. The right kidney measures 13.1 x 5.8 x 6.5 cm. Normal renal cortex. The right cortex measures 2.3 cm. There is no demonstrated renal mass or cyst. There is no right hydronephrosis. Left Kidney: Normal size of the left kidney. The left kidney measures 12.0 x 4.8 x 6.1 cm. Normal renal cortex. The left cortex measures 2.3 cm. There is no demonstrated renal mass or cyst. There is no left hydronephrosis. Aorta: Proximal 2.9 cm, midportion 3.3 cm, distal 2.9 cm in caliber I.V.C.: The IVC is obscured. US/Abdomen Complete IMPRESSION: Fatty change of liver with hepatomegaly measuring 20.8 cm. Prior cholecystectomy. Suboptimal assessment of the pancreas, and IVC due to overlying bowel gas. 3.3 cm abdominal aortic aneurysm in the midportion of aorta. Unremarkable bilateral kidneys and spleen. Electronically Signed: Jordan Baca MD at 16:22 EST Tel [phone], Service support ,
== END ==
PROVIDERS: Referring Provider Nurse Practitioner Family; Visit Provider Nurse Practitioner Family
DX: R10.811 Right upper quadrant abdominal tenderness (principal)
CPT/HCPCS: 76700

== ENCOUNTER → 2019-07-24 17:33 | Outpatient (CLI) | payer OTHER, MEDICAID, SELFPAY ==
[2019-03-09 21:39] VITALS: BMI 31.7
[2019-07-23 09:40] VITALS: BMI 31.7
--- NOTE | 2019-07-24 17:35 | CT_ITS ---
STUDY: CT ABDOMEN WITHOUT CONTRAST REASON FOR EXAM: Male, 54 years old. UPPER ABD PAIN AROUND TO BACK/AAA FOUND ON US. Prior cholecystectomy. Diabetic-Metformin. No hx cancer or HTN. RADIATION DOSAGE (If Supplied By Facility): CTDIvol = ( 15.28 ) mGy, DLP = ( 1003.90 ) mGycm TECHNIQUE: Transaxial images were obtained without intravenous contrast, and without oral contrast. Sagittal and coronal images were reconstructed. Individualized dose optimization techniques were used for this CT. COMPARISON: Abdominal ultrasound 07/07/2019. CT scan abdomen and pelvis 03/09/2019. FINDINGS: The visualized lung bases are unremarkable. The visualized portions of the heart are within normal limits. There is mildly decreased attenuation of the liver consistent with steatosis. The gallbladder surgically absent. There is no demonstrated bile duct dictation. Normal spleen. Normal pancreas. Normal bilateral adrenal glands. Normal right kidney. There are 3 nonobstructive left mid and lower pole renal calculi, ranging up to 4.5 mm. There is no demonstrated ureteral calculus or hydronephrosis. Normal visualized stomach. Normal visualized small intestine. Normal visualized colon. The appendix is visualized on axial images 98-103 and it appears normal.. Normal abdominal aorta. Maximal diameter of the abdominal aorta is 2.2 cm, which is well within normal limits. On my review of the ultrasound images, elevated aortic measurements were obtained only on transverse views, and presumably these elevated measurements were the result of improper transducer angulation. Normal inferior vena cava. Normal retroperitoneum. Normal abdominal wall. There are multilevel degenerative changes of the visualized lumbar spine. CT/Abdomen without IV Contrast IMPRESSION: The abdominal aorta appears normal, with no evidence for abnormal dilatation. Fatty liver. Previous cholecystectomy. Small nonobstructive left renal calculi. No demonstrated ureteral calculi or hydronephrosis. No evidence for acute pathology. Electronically Signed: Hal Nelson MD at 3:48 EST , Service support ,
== END ==
DX: R10.84 Generalized abdominal pain (principal)
CPT/HCPCS: 74150

== ENCOUNTER 2019-08-12 09:44 | Day surgery (SDC) | payer OTHER, MEDICAID, SELFPAY ==
[2019-07-27 12:32] VITALS: BMI 31.7
--- NOTE | 2019-07-27 12:53 | HP_ITS ---
Intake Vital Signs 07/27/19 BMI 31.7 07/27/19 Height 5 ft 10 in 07/27/19 Weight: 235 lb 07/27/19 BMI 33.7 07/27/19 BP 150/85 H 07/27/19 Blood Pressure Location Rt brachial 07/27/19 Position Sitting 07/27/19 Respiration 18 07/27/19 Pulse 84 07/27/19 Pulse Source Monitor 07/27/19 Temp 97.9 F 07/27/19 Temp Source Oral 07/27/19 Pulse Oximetry (%) 96 07/27/19 Oxygen Delivery Method room air Intake Visit Reasons: abd pain, change in bowel habits Chief Complaint: Altered bowel patterns/abdominal pain [employer] Required: No Accompanied by: Mother Is patient in pain?: No Allergies No Known Allergies Allergy (Verified 07/27/19 12:31) Medications Metformin HCl 1,000 mg PO BID 03/09/19 [History Confirmed 07/27/19] glimepiride 2 mg tablet 4 mg PO DAILY tab 07/27/19 [History] omeprazole magnesium 20 mg tablet,delayed release 20 mg PO DAILY tab 07/27/19 [History Confirmed 07/27/19] [facility] Medical History (Updated 07/27/19 @ 12:15 by Betsy Suarez) UTI (urinary tract infection) (Acute) Prostatitis (Acute) GERD (gastroesophageal reflux disease) (Chronic) Type 2 diabetes mellitus (Chronic) Abdominal aortic aneurysm without rupture (Acute) Altered bowel function (Acute) Generalized abdominal pain (Acute) Surgical History (Updated 07/27/19 @ 12:13 by Betsy Suarez) History of laparoscopic cholecystectomy (Acute) History of nasal surgery (Acute) History of right knee surgery (Acute) Family History (Updated 07/27/19 @ 12:28 by Betsy Suarez) Grandmother Breast cancer Father Cancer Pancreatic cancer Brother Diabetes Mother Heart disease Social History (Updated 07/27/19 @ 12:53 by Funmilayo Moser MD) Smoking Status: Never smoker alcohol intake: never substance use type: does not use HPI HPI HPI: MARY LARA, is a 54 M who presents to the office today for HPI HPI Surgical H&P: Yes HPI: MARY LARA, is a 54 M who presents to the office today for EGD and colonoscopy due to abdominal pain after eating. Patient states that right after eating he will have either right-sided or occasional left-sided abdominal pain he rates at 10/10 may last for about 15 minutes. Patient states sometimes he does have pain in his abdomen with a bowel movement denies any pain at the rectum or any issues with hemorrhoids. Patient had a recent ultrasound which showed fatty liver prior cholecystectomy and called at 3.3 cm AAA, more recently patient had a CT abdomen pelvis which stated the abdominal aorta look normal, call the fatty liver, nonobstructing left renal calculi, nothing acute. Patient does take omeprazole 20 mg p.o. daily and states that it controls his symptoms of burning at the epigastrium or reflux of the esophagus. Patient states he had an EGD about 5 years ago and he is also had a colonoscopy about 5 years ago and did have colon polyps. Patient does have bowel movements daily denies any blood but does state about a year ago he had one episode of black stool which resolved. Patient's paternal grandfather had colon cancer unsure of the age of diagnosis he in his 80s. ROS General General: No weight change, appetite, fatigue, colon cancer, breast cancer or weakness HEENT HEENT: No difficulty swallowing, eye injury, eye surgery, swollen glands or hoarseness Endo Endocrine: Yes diabetes mellitus; no thyroid disease, thyroid cancer, Hair loss, heat intolerance or cold intolerance Skin Skin: No rash or changing moles Breast Breast: No left breast lump, right breast lump, nipple discharge, breast pain, abnormal mammogram, abnormal US or breast enlargement Musc Musculoskeletal: No back problems, arthritis, rheumatoid arthritis, gout or joint pain Cardio Cardiovascular: No murmur, pacemaker, heart disease, atrial fibrillation, high blood pressure, heart attack, heart stent, palpitations, shortness of breat with exertion or chest pain Psych Psychiatric: No depression, anxiety or hearing voices Resp Respiratory: Yes shortness of breath, No sleep apnea, No cough, No COPD, No asthma, No emphysema, No wheezing Gastro Gastrointestinal: Yes abdominal pain, No nausea or vomiting, Yes diarrhea, Yes constipation, No blood in stool, Yes acid reflux, No hemorrhoids, No ulcers, No gallbladder problem, No black,tarry stools Sal Hematologic: No blood thinners, No blood disorders, No bleeding, No anemia, No blood clots Neuro Neurologic: No system reviewed and no additional complaints, except as docu, No as per HPI, No abnormal walking, No abnormal hearing, No abnormal movements, No abnormal speech, No behavioral changes, No burning sensations, No confusion, No seizure-like activity, No unsteadiness, No dizziness, No localized weakness, No frequent falls, No headache(s), No lack of coordination, No loss of vision, No memory loss, No numbness, No other visual disturbances, No radiating pain, No restless legs, No sensory deficit, No fainting, No tingling, No tremor(s), No weakness, No other Exam Const General: cooperative, comfortable, no acute distress Chest Breast Palpation: No nipple discharge Resp Effort & Inspection: normal respiratory effort Cardio Rate: regular rate Heart Sounds: no murmurs GI Inspection: non-distended Palpation: soft, no guarding, tender (Mild, no peritoneal signs) in the epigastrum, in the LUQ and in the RUQ; Negative for with no rebound tenderness Neuro Cranial Nerves: CN's II-XI intact bilaterally Extrem General: no clubbing, cyanosis or edema Psych Affect: normal affect Assessment & Plan Problems 1. GERD (gastroesophageal reflux disease) K21.9 2. Epigastric pain R10.13 3. LUQ abdominal pain R10.12 4. RUQ abdominal pain R10.11 5. Hx of colonic polyps Z86.010 Plan Discussed with patient that he can take a total of 40 mg of omeprazole daily see if that does improve his pain previously he had only been on 20 mg. I have discussed the above with the patient. I have offered the patient EGD and colonoscopy for evaluation. I have explained the risks/benefits of the procedure and described the procedure. I have discussed the risks with the patient, including but not limited to: infection, bleeding, perforation of the GI tract requiring emergency surgery, inability to complete the procedure, injury to any internal organs, complications of anesthesia, etc. - the patient understands and agrees to proceed. I have answered all the patient's questions to the patient's satisfaction and the patient has no further questions. The patient has been given instructions for the colon cleansing preparation. One day of clears, MiraLAX/Dulcolax split prep Funmilayo Moser M.D. Pager: [phone] [facility] [address] [place] [address], [facility], [address] [place] [address] Office: [phone] Plan Detail Follow Up We will schedule EGD and colonoscopy Coding Level of Care Code Off vis,new,level 3 Diagnoses GERD (gastroesophageal reflux disease) K21.9 Epigastric pain R10.13 LUQ abdominal pain R10.12 RUQ abdominal pain R10.11 Hx of colonic polyps Z86.010 07/27/19 1253 <Electronically signed by Funmilayo Lobato am, MD> Date _ Funmilayo Moser MD I have examined the patient the following changes are noted: Patient did begin taking omeprazole 40 mg and stated that that did improve his reflux symptoms and only occasionally got any with some spicy food.
[2019-08-12] VITALS (8 sets, daily range): BP systolic 108–141; BP diastolic 74–88; PULSE 70–80; RESP 16; TEMP 36.1–36.6; O2SAT 94–100; BMI 32.8
[2019-08-12 10:05] LABS: Bedside Glucose 233 mg/dL (70-110)
[2019-08-12] MEDS: Lactated Ringers 1,000 ML 100 ML IV (10:19)
--- NOTE | 2019-08-12 11:15 | EGD_PTH ---
PATIENT: MARY LARA LOC: EN U#:[id number] AGE/SX: 54/M ROOM: RE08/12/[address]: Dr. Funmilayo Moser MD : 1965 BED: DIS: 08/12/2019 SPEC #: [id number] RECD: 08/12/19 12:33 STATUS: DAR FLOYD #: [id number] ANDREW: 08/12/19 11:[address]: Funmilayo Moser DEPT: SURGICAL PATHOLOGY RECD BY: Mau Loving ENTERED: 08/12/19 13:33 SP TYPE: EGD BIOPSY OTHR DR: Yumi Lerner, INTERN PRODUCT MARKETING MANAGER-C [facility] Tissues: A - Gastric mucous membrane B - Gastric mucous membrane C - Rectum, NOS Procedures: Special Stain Group II Surgery Specimen Level IV Alcian Blue/PAS (control) HEADER OPERATION: Colonoscopy, E[place] [place] PRE-OP DIAGNOSIS: GERD, LUQ pain, RUQ pain, epigastric pain; history polyps TISSUE SUBMITTED: A - Antrum biopsy for Histo and H. pylori, B - GE junction biopsy, C - Rectal polyp biopsy MICROSCOPIC DIAGNOSIS A. Antrum biopsy: Mild gastritis. See microscopic description and comment. B. GE junction, biopsy: Fragments of gastroesophageal mucosa with focal intestinal metaplasia (goblet cell metaplasia), consistent with Cloud's esophagus. Negative for dysplasia. See comment. C. Rectal polyp, biopsy: Fragments of tubular adenoma. SJ:mercedes 08/13/19 COMMENT A. The results of immunohistochemistry for Helicobacter pylori will be reported separately ([id number]). B. Alcian blue/PAS stain with matched control is used in the evaluation of the specimen. MICROSCOPIC DESCRIPTION Slides are reviewed. A. The specimen shows fragments of gastric mucosa with chronic inflammatory cell infiltrates in the lamina propria consisting of lymphocytes and plasma cells, consistent with mild chronic gastritis. Focal mucosal congestion is noted. GROSS DESCRIPTION A - Received in fixative is one container labeled with the patient's name and designated antrum biopsy. The specimen consists of one irregular fragment of light franks soft tissue that measures 0.3 x 0.3 x 0.1 cm. The specimen is totally submitted in one cassette. B - Received in fixative is one container labeled with the patient's name and designated GE junction biopsy. The specimen consists of two irregular fragments of light franks soft tissue that in aggregate measure 0.8 x 0.5 x 0.1 cm. The specimen is totally submitted in one cassette. C - Received in fixative is one container labeled with the patient's name and designated rectal polyp biopsy. The specimen consists of two irregular fragments of light franks soft tissue that in aggregate measure 0.6 x 0.3 x 0.1 cm. The specimen is totally submitted in one cassette. / SJ:rg 08/12/19 TC:3 CPT: 52233 x3, 86940
--- NOTE | 2019-08-12 11:15 | IMM_PTH ---
PATIENT: MARY LARA LOC: DAVID U#:[id number] AGE/SX: 54/M ROOM: RE08/12/[address]: Dr. Funmilayo Moser MD : 1965 BED: DIS: 08/12/2019 SPEC #: [id number] RECD: 08/12/19 14:18 STATUS: DAR REQ #: [id number] ANDREW: 08/12/19 11:[address]: Funmilayo Moser DEPT: IMMUNOHISTOCHEMISTRY RECD BY: Ana Angela ENTERED: 08/12/19 14:18 SP TYPE: IMMUNO OTHR DR: Yumi Lerner, COOKING TEACHER-C [facility] Tissues: A - Stomach, NOS Procedures: H Pylori (initial) PHYSICIAN & INSTITUTION [place] [address] SPECIMEN INFORMATION: Tissue Source: A - Antrum biopsy Clinical Info: GERD, LUQ pain, epigastric pain, history polyps Specimen Number: [id number] CPT code: 33725 METHODOLOGY: Deparaffinized sections of prefer/formalin-fixed tissue or PAP/DQ stained slides are incubated with monoclonal/polyclonal antibodies/oligonucleotide probes. Localization is made via biotin free immunoperoxidase method. Appropriate controls are performed and reacted as expected. Results on target cell population are indicated in the following table: RESULTS: ANTIBODY / CLONE RESULT Block A H Pylori (polyclonal) negative These tests were developed and their performance characteristics determined by [facility]. They may not have been cleared or approved by the U.S. Food and Drug Administration. The FDA has determined that such clearance or approval is not necessary. INTERPRETATION: A. Antrum biopsy: Negative for Helicobacter pylori organisms. SJ:mercedes 08/13/19
--- NOTE | 2019-08-12 12:22 | OP.CCLET_ITS ---
08/12/2019 Mey Johnson [facility] Re : Upper GI endoscopy procedure for Carter Aragon [facility] This procedure was performed on Monday, August 12, 2019. My impressions and recommendations are as follows: Impressions : - Z-line irregular, 40 cm from the incisors. Biopsied. - Gastritis. Biopsied. - Normal examined duodenum. Recommendations : - Discharge patient to home. - Resume previous diet. - Use Protonix (pantoprazole) 40 mg PO daily. - Await pathology results. - Continue present medications. My findings are described in the full procedure note, which is enclosed. If I can be of further assistance, please feel free to contact me at Doctor phone number(s): , Work: . Sincerely, MD Funmilayo Vides MD 08/12/2019 12:21:35 PM This report has been signed electronically.
--- NOTE | 2019-08-12 12:22 | OP.EGD_ITS ---
Patient Name: Carter Aragon Procedure Date: 08/12/2019 11:32 AM Date of : 1965 Age: 54 Procedure: Upper GI endoscopy Indications: Follow-up of esophageal reflux Providers: Funmilayo Moser MD Referring MD: Mey Johnson [facility] Medicines: Monitored Anesthesia Care Patient Profile: This is a 54 year old male. Complications: No immediate complications. Procedure: Pre-Anesthesia Assessment: - Prior to the procedure, a History and Physical was performed, and patient medications and allergies were reviewed. The patient's tolerance of previous anesthesia was also reviewed. The risks and benefits of the procedure and the sedation options and risks were discussed with the patient. All questions were answered, and informed consent was obtained. Prior Anticoagulants: The patient has taken no previous anticoagulant or antiplatelet agents. ASA Grade Assessment: II - A patient with mild systemic disease. After reviewing the risks and benefits, the patient was deemed in satisfactory condition to undergo the procedure. After obtaining informed consent, the endoscope was passed under direct vision. Throughout the procedure, the patient's blood pressure, pulse, and oxygen saturations were monitored continuously. The gastroscope was introduced through the mouth, and advanced to the second part of duodenum. The upper GI endoscopy was accomplished without difficulty. The patient tolerated the procedure well. Scope In: 11:43:14 AM Scope Out: 11:50:52 AM Total Procedure Duration Time 0 hours 7 minutes 38 seconds Findings: The Z-line was irregular and was found 40 cm from the incisors. Biopsies were taken with a cold forceps for histology. Localized moderate inflammation characterized by erosions and erythema was found in the gastric antrum. Biopsies were taken with a cold forceps for histology. Biopsies were taken with a cold forceps for Helicobacter pylori cultures. The examined duodenum was normal. The cardia and gastric fundus were normal on retroflexion. Impression: - Z-line irregular, 40 cm from the incisors. Biopsied. - Gastritis. Biopsied. - Normal examined duodenum. Recommendation: - Discharge patient to home. - Resume previous diet. - Use Protonix (pantoprazole) 40 mg PO daily. - Await pathology results. - Continue present medications. Procedure Code(s): --- Professional --- 31040, Esophagogastroduodenoscopy, flexible, transoral; with biopsy, single or multiple Diagnosis Code(s): --- Professional --- K22.8, Other specified diseases of esophagus K29.70, Gastritis, unspecified, without bleeding K21.9, Gastro-esophageal reflux disease without esophagitis CPT copyright 2017 [employer]. All rights reserved. The codes documented in this report are preliminary and upon manager room review may be revised to meet current compliance requirements. MD Funmilayo Vides MD 08/12/2019 12:21:35 PM This report has been signed electronically. Number of Addenda: 0 Note Initiated On: 08/12/2019 11:32 AM
--- NOTE | 2019-08-12 12:26 | OP.CCLET_ITS ---
08/12/2019 Mey Johnson [facility] Re : Colonoscopy procedure for Carter Montesinos [facility] This procedure was performed on Monday, August 12, 2019. My impressions and recommendations are as follows: Impressions : - One less than 5 mm polyp in the rectum, removed with a cold biopsy forceps. Resected and retrieved. - Diverticulosis in the sigmoid colon. - Internal hemorrhoids. - The examination was otherwise normal. Recommendations : - Discharge patient to home. - High fiber diet. - Continue present medications. - Await pathology results. - Repeat colonoscopy in 5-10 years for surveillance based on pathology results. My findings are described in the full procedure note, which is enclosed. If I can be of further assistance, please feel free to contact me at Doctor phone number(s): , Work: . Sincerely, MD Funmilayo Vieds MD 08/12/2019 12:25:50 PM This report has been signed electronically.
--- NOTE | 2019-08-12 12:26 | OP.COLON_ITS ---
Patient Name: Carter Aragon Procedure Date: 08/12/2019 11:51 AM Date of : 1965 Age: 54 Procedure: Colonoscopy Indications: High risk colon cancer surveillance: Personal history of colonic polyps Providers: Funmilayo Moser MD Referring MD: Mey Johnson [facility] Medicines: Monitored Anesthesia Care Patient Profile: This is a 54 year old male. Last Colonoscopy: 6 years ago. Complications: No immediate complications. Procedure: Pre-Anesthesia Assessment: - Prior to the procedure, a History and Physical was performed, and patient medications and allergies were reviewed. The patient's tolerance of previous anesthesia was also reviewed. The risks and benefits of the procedure and the sedation options and risks were discussed with the patient. All questions were answered, and informed consent was obtained. Prior Anticoagulants: The patient has taken no previous anticoagulant or antiplatelet agents. ASA Grade Assessment: II - A patient with mild systemic disease. After reviewing the risks and benefits, the patient was deemed in satisfactory condition to undergo the procedure. After I obtained informed consent, the scope was passed under direct vision. Throughout the procedure, the patient's blood pressure, pulse, and oxygen saturations were monitored continuously. The colonoscope was introduced through the anus and advanced to the cecum, identified by the appendiceal orifice, ileocecal valve and palpation. The colonoscopy was performed without difficulty. The patient tolerated the procedure well. The quality of the bowel preparation was good. Scope In: 11:53:15 AM Scope Withdrawal Time 0 hours 15 minutes 5 seconds Scope Out: 12:14:19 PM Total Procedure Duration Time 0 hours 21 minutes 4 seconds Findings: The perianal and digital rectal examinations were normal. A less than 5 mm polyp was found in the rectum. The polyp was semi-pedunculated. The polyp was removed with a cold biopsy forceps. Resection and retrieval were complete. A few small-mouthed diverticula were found in the sigmoid colon. Internal hemorrhoids were found. The hemorrhoids were Grade I (internal hemorrhoids that do not prolapse). The exam was otherwise without abnormality. Impression: - One less than 5 mm polyp in the rectum, removed with a cold biopsy forceps. Resected and retrieved. - Diverticulosis in the sigmoid colon. - Internal hemorrhoids. - The examination was otherwise normal. Recommendation: - Discharge patient to home. - High fiber diet. - Continue present medications. - Await pathology results. - Repeat colonoscopy in 5-10 years for surveillance based on pathology results. Procedure Code(s): --- Professional --- 87927, PT, Colonoscopy, flexible; with biopsy, single or multiple Diagnosis Code(s): --- Professional --- Z86.010, Personal history of colonic polyps K62.1, Rectal polyp K64.0, First degree hemorrhoids K57.30, Diverticulosis of large intestine without perforation or abscess without bleeding CPT copyright 2017 [employer]. All rights reserved. The codes documented in this report are preliminary and upon director of product design review may be revised to meet current compliance requirements. MD Funmilayo Vides MD 08/12/2019 12:25:50 PM This report has been signed electronically. Number of Addenda: 0 Note Initiated On: 08/12/2019 11:51 AM
== END 2019-08-12 13:15 | disposition home or self-care (01) ==
LOC: EN 09:45 → AC 09:47
PROVIDERS: Visit Provider Surgery
PROC: 0DJD8ZZ Inspection of Lower Intestinal Tract, Via Natural or Artificial Opening Endoscopic (ICD-10-PCS; CPT 45378; principal; 2019-08-12 11:10)
DX: Z12.11 Encounter for screening for malignant neoplasm of colon (principal); D12.8 Benign neoplasm of rectum; K57.30 Diverticulosis of large intestine without perforation or abscess without bleeding; K29.70 Gastritis, unspecified, without bleeding; K21.9 Gastro-esophageal reflux disease without esophagitis; K22.8 Other specified diseases of esophagus; K64.0 First degree hemorrhoids; K64.8 Other hemorrhoids; E11.9 Type 2 diabetes mellitus without complications; Z86.010 Personal history of colon polyps; Z90.49 Acquired absence of other specified parts of digestive tract
CPT/HCPCS: 43239; 45380; 82962; 88305; 88313; 88342; J7120; J2405

== ENCOUNTER → 2020-02-25 07:56 | Outpatient (CLI) | payer MEDICAID, SELFPAY ==
[2019-08-12 10:11] VITALS: BMI 32.8
[2020-02-25 08:32] LABS: Absolute Lymphocyte Count 2.73 X10^3/uL (0.83-4.51); Absolute Neutrophil Count 5.8 X10^3/uL (2.0-7.7); Basophil# 0.03 X10^3/uL; Basophil% 0.3 % (0-1); Eosinophil# 0.09 X10^3/uL; Eosinophils% 0.9 % (0-5); Hematocrit 48.7 % (40-54); Hemoglobin 16.1 g/dL (13.0-16.5); Lymphocyte # 2.73 X10^3/ul (4.0); Lymphocyte % 28.8 % (19-41); Mean Corp Hgb Conc 33.1 g/dL (32-36); Mean Corpuscular Volume 90.9 fL (80-94); Mean Platelet Vol. 10.2 fl (6.2-12.0); Monocyte# 0.78 X10^3/uL; Monocyte% 8.2 % (0-10); NRBC Flagged by Analyzer 0 % (0-5); Neutrophil # 5.83 X10^3/uL (2.7-7.7); Neutrophil % 61.6 % (47-70); Platelet Count 227 K/mm3 (150-450); RBC Distribution Width CV 12.9 % (11.6-14.6); RBC Distribution Width SD 42.5 fl (35.1-43.9); Red Blood Count 5.36 M/mm3 (4.6-6.2); White Blood Count 9.5 K/mm3 (4.4-11.0)
[2020-02-25 08:50] LABS: Hemoglobin A1c 9.3 % (3.8-5.6)
[2020-02-25 09:07] LABS: AST(SGOT) 48 U/L (15-37); Alanine Aminotransfer ALT/SGPT 73 U/L (16-61); Alkaline Phosphatase 69 U/L (45-117); Anion Gap 6 (5-15); BUN 13 mg/dL (7-18); Calcium,Total 9.2 mg/dL (8.5-10.1); Chloride 100 mmol/L (98-107); Cholesterol 193 mg/dL (200); EST Glomerular Filtration Rate 83 mL/min (>60); Est Glom Filt Rate - Afr Amer 101 mL/min (>60); Globulin 3.9 g/dL (2.2-4.2); Glucose 127 mg/dL (74-106); High Density Lipoprotein 42 mg/dL; Potassium 4.2 mmol/L (3.5-5.1); Protein, Total 7.9 g/dL (6.4-8.2); Sodium Level 136 mmol/L (136-145); Triglycerides 200 mg/dL; Very Low Density Lipoprotein 40 mg/dL (5-40)
== END ==
PROVIDERS: Nurse Practitioner Family
DX: E11.65 Type 2 diabetes mellitus with hyperglycemia (principal); E78.5 Hyperlipidemia, unspecified; K21.9 Gastro-esophageal reflux disease without esophagitis
CPT/HCPCS: 36415; 80053; 80061; 83036; 85025

== ENCOUNTER → 2020-04-28 08:42 | Outpatient (CLI) | payer MEDICAID, SELFPAY ==
[2019-08-12 10:11] VITALS: BMI 32.8
[2020-04-28 10:14] LABS: Absolute Lymphocyte Count 3.25 X10^3/uL (0.83-4.51); Absolute Neutrophil Count 9.2 X10^3/uL (2.0-7.7); Basophil# 0.03 X10^3/uL; Basophil% 0.2 % (0-1); Eosinophil# 0.08 X10^3/uL; Eosinophils% 0.6 % (0-5); Hematocrit 49.9 % (40-54); Hemoglobin 16.6 g/dL (13.0-16.5); Lymphocyte # 3.25 X10^3/ul (4.0); Mean Corp Hgb Conc 33.3 g/dL (32-36); Mean Corpuscular Hgb 30.3 pg (27.0-32.0); Mean Corpuscular Volume 91.1 fL (80-94); Mean Platelet Vol. 10.3 fl (6.2-12.0); Monocyte# 1.53 X10^3/uL; Monocyte% 10.8 % (0-10); NRBC Flagged by Analyzer 0 % (0-5); Neutrophil # 9.18 X10^3/uL (2.7-7.7); Neutrophil % 65.1 % (47-70); POSITIVE DIFFERENTIAL YES; Platelet Count 237 K/mm3 (150-450); RBC Distribution Width CV 13.1 % (11.6-14.6); RBC Distribution Width SD 43.8 fl (35.1-43.9); Red Blood Count 5.48 M/mm3 (4.6-6.2); White Blood Count 14.1 K/mm3 (4.4-11.0)
[2020-04-28 10:15] LABS: Differential Indicated SCAN CRITERIA MET
[2020-04-28 10:40] LABS: Hemoglobin A1c 9.5 % (3.8-5.6)
[2020-04-28 10:47] LABS: AST(SGOT) 39 U/L (15-37); Alanine Aminotransfer ALT/SGPT 79 U/L (16-61); Alkaline Phosphatase 65 U/L (45-117); Anion Gap 6 (5-15); BUN 16 mg/dL (7-18); BUN/Creat Ratio 16.4 RATIO (10-20); Calcium,Total 9.3 mg/dL (8.5-10.1); Chloride 101 mmol/L (98-107); Cholesterol 136 mg/dL (200); Creatinine, Serum 0.98 mg/dL (0.70-1.30); EST Glomerular Filtration Rate 85 mL/min (>60); Est Glom Filt Rate - Afr Amer 103 mL/min (>60); Globulin 3.9 g/dL (2.2-4.2); Glucose 58 mg/dL (74-106); High Density Lipoprotein 50 mg/dL; Potassium 4.3 mmol/L (3.5-5.1); Protein, Total 7.9 g/dL (6.4-8.2); Sodium Level 136 mmol/L (136-145); Triglycerides 81 mg/dL; Very Low Density Lipoprotein 16 mg/dL (5-40)
[2020-04-28 14:01] LABS: Pathologist Review Reviewed
== END ==
PROVIDERS: Nurse Practitioner Family
DX: K22.70 Barrett's esophagus without dysplasia (principal); E11.65 Type 2 diabetes mellitus with hyperglycemia; E78.5 Hyperlipidemia, unspecified
CPT/HCPCS: 36415; 80053; 80061; 83036; 85025

== ENCOUNTER → 2020-08-19 10:07 | Outpatient (CLI) | payer MEDICAID, SELFPAY ==
[2019-08-12 10:11] VITALS: BMI 32.8
--- NOTE | 2020-08-19 10:14 | US_ITS ---
PROCEDURES: ULTRASOUND AORTA REASON FOR EXAM: Male, 55 years old. HX OF AAA SEEN ON 07/07/19 US BUT NOT ON 07/24/19 CT. TECHNIQUE: Ultrasound evaluation of the aorta was performed with real-time and static ibrahim-scale imaging. COMPARISON: None. FINDINGS: There is no elongation or tortuosity of the abdominal aorta. Aorta measures: Proximal 1.8 cm. Middle 1.8 cm. Distal 1.7 cm. Aorta measure transversely: Proximal 2 cm. Middle 2.4 cm. Distal 1.6 cm. Right iliac artery measures: 0.9 cm. Right iliac artery measure transversely: 1.3 cm. Left iliac artery measures: 1.1 cm. Left iliac artery measure transversely: 1.4 cm. There is no demonstrated aneurysm.. US/Aorta IMPRESSION: Normal abdominal aorta. Electronically Signed: Zain Conti MD at 12:45 EST , Service support ,
== END ==
DX: I71.4 Abdominal aortic aneurysm, without rupture (principal)
CPT/HCPCS: 76775

== ENCOUNTER → 2020-09-12 10:38 | Outpatient (CLI) | payer MEDICAID, SELFPAY ==
[2019-08-12 10:11] VITALS: BMI 32.8
--- NOTE | 2020-09-12 10:40 | US_ITS ---
STUDY: ABDOMINAL ULTRASOUND REASON FOR EXAM: Male, 55 years old. ABD PAIN TECHNIQUE: Transabdominal ultrasound was performed with real-time and static ibrahim scale imaging. TECHNICAL QUALITY: Adequate. COMPARISON: Comparison is made with prior examination dated 07/07/2019. FINDINGS: Liver: The liver is enlarged and measures 17.2 cm. There is increased echogenicity consistent with fatty infiltration. The bile ducts are within normal limits. There is hepatic color flow. The direction of portal flow is hepatopetal. There is no demonstrated mass lesion. Gallbladder: The patient is status post cholecystectomy. Common Bile Duct (C.B.D.): The common bile duct measures 4 mm. Pancreas: There is nonvisualization of the pancreas due to overlying bowel gas. Spleen: Normal size of the spleen. The spleen measures 10.2 cm x 4.5 cm x 4.4 cm. Right Kidney: Normal size of the right kidney. The right kidney measures 11.7 cm x 5.7 cm x 4.7 cm. Normal renal cortex. The right cortex measures 1.5 cm. There is no demonstrated renal mass or cyst. There is no right hydronephrosis. Left Kidney: Normal size of the left kidney. The left kidney measures 12.3 cm x 5.9 cm x 6.5 cm. Normal renal cortex. The left cortex measures 2.0 cm. There is no demonstrated renal mass or cyst. There is no left hydronephrosis. Aorta: Unremarkable I.V.C.: The IVC is patent. There is no ascites. US/Abdomen Complete IMPRESSION: Mild hepatomegaly and diffuse fatty infiltration of the liver. Prior cholecystectomy. Electronically Signed: Zain Conti MD at 16:34 EST , Service support ,
== END ==
DX: R10.84 Generalized abdominal pain (principal)
CPT/HCPCS: 76700

== ENCOUNTER → 2020-11-02 17:17 | Outpatient (CLI) | payer MEDICAID, SELFPAY ==
[2019-08-12 10:11] VITALS: BMI 32.8
[2020-11-02 17:41] LABS: Absolute Lymphocyte Count 3.69 X10^3/uL (0.83-4.51); Absolute Neutrophil Count 6.5 X10^3/uL (2.0-7.7); Basophil# 0.05 X10^3/uL; Basophil% 0.4 % (0-1); Eosinophil# 0.07 X10^3/uL; Eosinophils% 0.6 % (0-5); Hematocrit 46.8 % (40-54); Hemoglobin 15.4 g/dL (13.0-16.5); Lymphocyte # 3.69 X10^3/ul (0.83-4.51); Mean Corp Hgb Conc 32.9 g/dL (32-36); Mean Corpuscular Hgb 29.7 pg (27.0-32.0); Mean Corpuscular Volume 90.3 fL (80-94); Mean Platelet Vol. 9.6 fl (6.2-12.0); Monocyte# 0.81 X10^3/uL; Monocyte% 7.2 % (0-10); NRBC Flagged by Analyzer 0 % (0-5); Neutrophil # 6.54 X10^3/uL (2.7-7.7); Neutrophil % 58.6 % (47-70); Platelet Count 233 K/mm3 (150-450); RBC Distribution Width CV 12.8 % (11.6-14.6); RBC Distribution Width SD 42.5 fl (35.1-43.9); Red Blood Count 5.18 M/mm3 (4.6-6.2); White Blood Count 11.2 K/mm3 (4.4-11.0)
[2020-11-02 17:50] LABS: Hemoglobin A1c 10.1 % (3.8-5.6)
[2020-11-02 18:20] LABS: Anion Gap 4 (5-15); BUN 13 mg/dL (7-18); BUN/Creat Ratio 13.6 RATIO (10-20); Chloride 102 mmol/L (98-107); Cholesterol 198 mg/dL (200); Creatinine, Serum 0.95 mg/dL (0.70-1.30); EST Glomerular Filtration Rate 88 mL/min (>60); Est Glom Filt Rate - Afr Amer 106 mL/min (>60); Glucose 72 mg/dL (74-106); High Density Lipoprotein 47 mg/dL; Potassium 4.1 mmol/L (3.5-5.1); Sodium Level 136 mmol/L (136-145); Triglycerides 193 mg/dL; Very Low Density Lipoprotein 39 mg/dL (5-40)
== END ==
DX: I71.4 Abdominal aortic aneurysm, without rupture (principal); E78.5 Hyperlipidemia, unspecified; E11.65 Type 2 diabetes mellitus with hyperglycemia; K21.9 Gastro-esophageal reflux disease without esophagitis
CPT/HCPCS: 36415; 80048; 80061; 83036; 85025

== ENCOUNTER → 2020-11-18 08:31 | Outpatient (CLI) | payer MEDICAID, SELFPAY ==
[2019-08-12 10:11] VITALS: BMI 32.8
--- NOTE | 2020-11-18 08:33 | EKG12_ITS ---
Test Reason : PRE OP Blood Pressure : / mmHG Vent. Rate : 091 BPM Atrial Rate : 091 BPM P-R Int : 156 ms QRS Dur : 090 ms QT Int : 352 ms P-R-T Axes : 047 048 030 degrees QTc Int : 432 ms Normal sinus rhythm Normal ECG Confirmed by ALE ENGLISH, SHAN ([id number]), writer editor WATSON CADE ([id number]) on 11/22/2020 8:37:31 AM Referred By: Alea Lucia Confirmed By:SHAN AGUILERA MD
== END ==
PROVIDERS: Referring Provider Nurse Practitioner Adult Health; Visit Provider Nurse Practitioner Adult Health
DX: R07.9 Chest pain, unspecified (principal)
CPT/HCPCS: 93005

== ENCOUNTER → 2020-11-22 18:00 | Outpatient (CLI) | payer MEDICAID, SELFPAY ==
[2019-08-12 10:11] VITALS: BMI 32.8
[2020-11-22 18:54] LABS: Microalbumin:Creatinine Ratio 45.7 mg/g CRE (<30 mg/g CRE)
[2020-11-22 19:00] LABS: AST(SGOT) 44 U/L (15-37); Alanine Aminotransfer ALT/SGPT 83 U/L (16-61); Lipase 202 U/L (73-393); PSA,Total - Annual Screen 1.25 ng/mL (0.00-4.00); Thyroid Stim Hormone (TSH) 1.72 uIU/mL (0.358-3.74)
== END ==
PROVIDERS: PCP Nurse Practitioner Adult Health; Referring Provider Nurse Practitioner Adult Health; Visit Provider Nurse Practitioner Adult Health
DX: Z12.5 Encounter for screening for malignant neoplasm of prostate (principal); R06.02 Shortness of breath; E11.65 Type 2 diabetes mellitus with hyperglycemia; Z12.11 Encounter for screening for malignant neoplasm of colon
CPT/HCPCS: 36415; 82043; 82274; 82570; 83690; 84153; 84443; 84450; 84460; G0103

== ENCOUNTER → 2020-12-15 14:56 | Outpatient (CLI) | payer MEDICAID, SELFPAY ==
[2019-08-12 10:11] VITALS: BMI 32.8
--- NOTE | 2020-12-15 14:57 | CT_ITS ---
STUDY: CT ABDOMEN AND PELVIS WITH CONTRAST REASON FOR EXAM: Male, 55 years old. UMBILICAL HERNIA WO OBSTRUCTION OR GANGRENE RADIATION DOSAGE (If Supplied By Facility): CTDIvol = ( 16.11 ) mGy, DLP = ( 1136.70 ) mGycm TECHNIQUE: Transaxial images were obtained from the dome of the diaphragm to the symphysis pubis with oral contrast. Oral and amp;amp; IV Readi-CAT and amp;amp; 100mL Isovue-300 was administered. Sagittal and coronal images were reconstructed. Individualized dose optimization techniques were used for this CT. COMPARISON: Comparison is made with prior study dated 07/24/2019. FINDINGS: Stable calcified granuloma at the right lung base. The visualized portions of the heart are within normal limits. There is decreased attenuation of the liver consistent with steatosis. Mild hepatomegaly. The patient is status post cholecystectomy. Normal spleen. Normal pancreas. Normal bilateral adrenal glands. Normal right kidney. Normal left kidney. Normal visualized stomach. Normal small intestine. There are scattered colonic diverticula consistent with diverticulosis. The appendix is visualized and appears normal. There is scattered atherosclerotic calcification of the abdominal aorta, without a demonstrated aneurysm. Normal inferior vena cava. Normal retroperitoneum. Normal urinary bladder. Normal abdominal wall. Normal osseous structures. CT/Abdomen/Pelvis WITH Contrast IMPRESSION: Diffuse fatty infiltration of the liver. No evidence of a herniation. Electronically Signed: Zain Conti MD at 15:47 EDT , Service support ,
== END ==
PROVIDERS: PCP Nurse Practitioner Adult Health; Referring Provider Nurse Practitioner Adult Health; Visit Provider Nurse Practitioner Adult Health
DX: K42.9 Umbilical hernia without obstruction or gangrene (principal)
CPT/HCPCS: 74177; Q9967

== ENCOUNTER 2021-02-14 07:37 | Day surgery (SDC) | payer MEDICAID, SELFPAY ==
[2021-02-06 13:21] VITALS: BMI 32.7
[2021-02-14] VITALS (7 sets, daily range): BP systolic 131–157; BP diastolic 90–98; PULSE 71–84; RESP 16; TEMP 36.2–36.4; O2SAT 97–99; BMI 32.3
--- NOTE | 2021-02-14 08:03 | HP.PCM_ITS ---
History and Physical Date of Admission: 02/14/21 Intake Visit Reasons: UMBILICAL HERNIA Chief Complaint: abd pain Last Waxer Required: No Is patient in pain?: Yes (abdomen) Allergies No Known Allergies Allergy (Verified 02/06/21 13:22) Medications metformin 1,000 mg PO BID 03/09/19 [History Confirmed 02/06/21] glimepiride 2 mg tablet 4 mg PO DAILY tab 07/27/19 [History Confirmed 02/06/21] omeprazole magnesium 20 mg tablet,delayed release 20 mg PO BID tab 07/27/19 [History Confirmed 02/06/21] ascorbic acid (vitamin C) 1,000 mg PO DAILY 08/06/19 [History Confirmed 02/06/21] zinc 50 mg PO DAILY 08/06/19 [History Confirmed 08/12/19] dulaglutide 0.75 mg/0.5 mL subcutaneous pen injector 0.75 mg SUBCUT QWEEK 02/06/21 [History Confirmed 02/06/21] metoprolol succinate 50 mg tablet,extended release 24 hr 50 mg PO DAILY 02/06/21 [History Confirmed 02/06/21] [facility] Medical History Abdominal aortic aneurysm without rupture Altered bowel function Generalized abdominal pain GERD (gastroesophageal reflux disease) Prostatitis Type 2 diabetes mellitus UTI (urinary tract infection) Surgical History History of laparoscopic cholecystectomy History of nasal surgery History of right knee surgery S/P bilateral inguinal hernia repair Family History Grandmother Breast cancer Father Cancer Pancreatic cancer Brother Diabetes Mother Heart disease Social History Smoking Status: Never smoker alcohol intake: never substance use type: does not use HPI HPI HPI: MARY LARA, is a 55 M who presents to the office today for surgical cons ultation regarding a umbilical hernia. The patient is referred by the [facility] and DEANNA Capone and a written copy of my surgical consult and recommendations will return to them. The patient had a CT scan of the abdomen and pelvis on December 15, 2020 at the [facility] [place]. Diffuse fatty infiltration liver was identified. No evidence of herniation.. I have reviewed those images and do not detect what appears to be imaging evidence of an umbilical hernia. The patient states he has been having troubles with significant epigastric pain. Within 15 minutes after eating he will of severe diarrhea. He has noted some charcoal black stools. He is taking [id number] Prilosec 20 mg twice a day. He states that he also has significant gastroesophageal reflux disease. On inspection it is apparent that July 2019 had an upper and lower scope. Lower scope showed a rectal polyp with recommendations for follow-up in 5 years July 2024. 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 There was no dysplasia. The patient's symptoms however have recently escalated. He has not experience COVID-19. He is not in favor proceeding with vaccination at this time. ROS General General: No weight change, appetite, fatigue, colon cancer, breast cancer or weakness HEENT HEENT: Yes difficulty swallowing; No eye injury, eye surgery, swollen glands or hoarseness Endo Endocrine: Yes diabetes mellitus; No thyroid disease, thyroid cancer, Hair loss, heat intolerance or cold intolerance Skin Skin: No rash or changing moles Breast Breast: No left breast lump, right breast lump, nipple discharge, breast pain, abnormal mammogram, abnormal US or breast enlargement Musc Musculoskeletal: No back problems, arthritis, rheumatoid arthritis, gout or joint pain Cardio Cardiovascular: Yes high blood pressure; No murmur, pacemaker, heart disease, atrial fibrillation, heart attack, heart stent, palpitations, shortness of breat with exertion or chest pain Psych Psychiatric: No depression, anxiety or hearing voices Resp Respiratory: Yes shortness of breath, No sleep apnea, No cough, No COPD, No asthma, No emphysema and No wheezing Gastro Gastrointestinal: Yes abdominal pain, Yes nausea or vomiting, Yes diarrhea, No constipation, No blood in stool, Yes acid reflux, No hemorrhoids, No ulcers, No gallbladder problem and No black,tarry stools Sal Hematologic: No blood thinners, No blood disorders, No bleeding, No anemia and No blood clots Neuro Neurologic: No system reviewed and no additional complaints, except as documented, No as per HPI, No abnormal gait, No abnormal hearing, No abnormal movements, No abnormal speech, No behavioral changes, No burning sensations, No confusion, No convulsions, No disequilibrium, No dizziness, No localized weakness, No frequent falls, No headache(s), No lack of coordination, No loss of vision, No memory loss, No numbness, No other visual disturbances, No radicular pain, No restless legs, No sensory deficit, No syncope, No tingling, No tremor(s), No weakness and No other Exam Const General: cooperative and comfortable Nutritional Appearance: average body habitus Orientation: alert and awake [facility] Head: normal to inspection Eyes General: appearance normal, both eyes and all related structures Neck Neck: normal visual inspection Resp Effort & Inspection: normal respiratory effort Auscultation: clear to auscultation bilaterally Cardio Rate: regular rate Rhythm: regular rhythm GI Palpation: soft and no hepatosplenomegaly Auscultation: normal bowel sounds Other: Diastases recti noted Musc Cervical Spine: normal cervical lordosis Neuro General: patient alert and patient awake Extrem General: no calf tenderness Psych Affect: normal affect COVID (Procedure Consent) Procedure Criteria Procedure Criteria: Yes Elective The surgeon/proceduralist and patient have discussed in detail the risk of exposure to and/or potential harm posed by the COVID-19 virus with having a surgery/procedure at this time versus the risk of delaying the surgery/procedure. It is not possible to know either the risk of delaying the surgery or procedure or chance of getting an infection with perfect accuracy, but a joint decision was made between the patient and the surgeon/proceduralist to proceed at this time with the scheduled surgery/procedure as indicated on the consent form. Assessment and Plan Assessment and Plan (1) Epigastric abdominal pain: Status: Acute Plan Details Other Orders: Orders: EGD Today Additional Comments: Epigastric pain with history of mild gastritis and history of Cloud's. Escalating symptoms not remedied with omeprazole 20 mg twice daily. I recommended the patient a esophagogastroduodenoscopy with very careful inspection and biopsy is appropriate. Need to assess for possible H. pylori or eosinophilic esophagitis. Need to assess for any progression of his Cloud's. He has had an opportunity to ask and have questions answered. If no additional findings identified he might be a candidate for sucralfate therapy. The diastases recti that was found clinically does not require repair and is not causative of his abdominal pain and diarrhea symptoms. He has had an opportunity to ask and have questions answered. We will schedule procedure at his discretion. I appreciate the ongoing opportunity of assisting with his surgical care. Copy:[facility] and DEANNA Capone M.D., F.A.C.S. Coding Level of Care Code 41893 Diagnoses Epigastric abdominal pain R10.13 I have re-examined the patient. There are no clinical changes since date of exam. Mary Harden M.D., F.A.C.S.
[2021-02-14] MEDS: Lactated Ringers 1,000 ML 100 ML IV (08:23)
--- NOTE | 2021-02-14 09:00 | EGD_PTH ---
PATIENT: MARY LARA LOC: EN U#:[id number] AGE/SX: 55/M ROOM: RE02/14/[address]: Dr. Mary Harden MD : 1965 BED: DIS: 02/14/2021 SPEC #: [id number] RECD: 02/14/21 13:04 STATUS: DAR FLOYD #: [id number] ANDREW: 02/14/21 09:[address]: Mary Harden DEPT: SURGICAL PATHOLOGY RECD BY: Mame Gamez ENTERED: 02/14/21 13:41 SP TYPE: EGD BIOPSY OTHR DR: Alea Lucia, VENUSC Tissues: A - Duodenum, NOS B - Gastric mucous membrane C - Esophagus, NOS Procedures: Special Stain Group II Surgery Specimen Level IV Alcian Blue/PAS (control) HEADER OPERATION: EGD ([facility]) PRE-OP DIAGNOSIS: Epigastric abdominal pain TISSUE SUBMITTED: A ? Duodenum biopsy, B ? Antrum biopsy for histo and H. pylori, C ? Distal esophagus biopsy MICROSCOPIC DIAGNOSIS A. Duodenum, biopsy: No pathologic change. B. Gastric antrum, biopsy: Chronic gastritis. See comment. C. Distal esophagus, biopsy: Focal changes of reflux. 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 No evidence of dysplasia. See comment. AM:mercedes 02/16/2021 COMMENT B. The results of immunohistochemistry for Helicobacter pylori will be reported separately ([id number]). C. Alcian blue/PAS stain with matched control supports the above diagnosis. Immunohistochemistry ([id number]) supports the above diagnosis. MICROSCOPIC DESCRIPTION Slides are reviewed. GROSS DESCRIPTION A - Received in fixative is one container labeled with the patient's name and designated duodenum biopsy. The specimen consists of one irregular fragment of light franks soft tissue that measures 0.5 x 0.2 x 0.1 cm. The specimen is totally submitted in one cassette. B - Received in fixative is one container labeled with the patient's name and designated antrum biopsy. The specimen consists of one irregular fragment of light franks soft tissue that measures 0.5 x 0.3 x 0.1 cm. The specimen is totally submitted in one cassette. C - Received in fixative is one container labeled with the patient's name and designated distal esophagus. The specimen consists of one irregular fragment of light franks soft tissue that measures 1.5 x 1 x 0.1 cm. The specimen is totally submitted in one cassette. / AM:mercedes 02/14/21 TC:3 CPT: 75813 x3, 52275
--- NOTE | 2021-02-14 09:00 | IMM_PTH ---
PATIENT: MARY LARA LOC: EN U#:[id number] AGE/SX: 55/M ROOM: RE02/14/[address]: Dr. Mary Harden MD : 1965 BED: DIS: 02/14/2021 SPEC #: [id number] RECD: 02/14/21 13:35 STATUS: DAR REAliza #: [id number] ANDREW: 02/14/21 09:[address]: Mary Harden DEPT: IMMUNOHISTOCHEMISTRY RECD BY: Ana Angela ENTERED: 02/14/21 13:35 SP TYPE: IMMUNO OTHR DR: Alea uLcia, RETIREMENT CONSULTANT-C Tissues: B - Stomach, NOS Procedures: H Pylori (initial) P53 (add) KI-67 (initial) PHYSICIAN & INSTITUTION [place] [id number] SPECIMEN INFORMATION: Tissue Source: B ? Antrum biopsy, C ? Distal esophagus biopsy Clinical Info: Epigastric abdominal pain Specimen Number: [id number] B & C CPT code: 92108 x2, 09481 METHODOLOGY: Deparaffinized sections of prefer/formalin-fixed tissue or PAP/DQ stained slides are incubated with monoclonal/polyclonal antibodies/oligonucleotide probes. Localization is made via biotin free immunoperoxidase method. Appropriate controls are performed and reacted as expected. Results on target cell population are indicated in the following table: RESULTS: ANTIBODY / CLONE RESULT Block B H Pylori (polyclonal) negative Block C P53 (DO-7) negative Ki-67 (30-9) negative These tests were developed and their performance characteristics determined by [facility]. They may not have been cleared or approved by the U.S. Food and Drug Administration. The FDA has determined that such clearance or approval is not necessary. The above immunohistochemical/dualISH markers are ordered and reviewed by the pathologist. INTERPRETATION: B. Antrum biopsy: Negative for Helicobacter pylori organisms. C. Distal esophagus biopsy: Intestinal metaplasia. No evidence of dysplasia. AM:mercedes 02/17/2021
[2021-02-14 09:06] LABS: Bedside Glucose 179 mg/dL (70-110)
--- NOTE | 2021-02-14 13:11 | OP.EGD_ITS ---
Patient Name: Carter Aragon Procedure Date: 02/14/2021 9:10 AM Date of : 1965 Age: 55 Procedure: Upper GI endoscopy Indications: Epigastric abdominal pain Providers: Carter Harden MD Medicines: General Anesthesia Complications: No immediate complications. Procedure: Pre-Anesthesia Assessment: - Prior to the procedure, a History and Physical was performed, and patient medications and allergies were reviewed. The patient's tolerance of previous anesthesia was also reviewed. The risks and benefits of the procedure and the sedation options and risks were discussed with the patient. All questions were answered, and informed consent was obtained. Prior Anticoagulants: The patient has taken no previous anticoagulant or antiplatelet agents. ASA Grade Assessment: II - A patient with mild systemic disease. After reviewing the risks and benefits, the patient was deemed in satisfactory condition to undergo the procedure. After obtaining informed consent, the endoscope was passed under direct vision. Throughout the procedure, the patient's blood pressure, pulse, and oxygen saturations were monitored continuously. The Endoscope was introduced through the mouth, and advanced to the second part of duodenum. The upper GI endoscopy was accomplished without difficulty. The patient tolerated the procedure well. Scope In: 9:21:44 AM Scope Out: 9:28:55 AM Total Procedure Duration Time 0 hours 7 minutes 11 seconds Findings: There were esophageal mucosal changes consistent with Cloud's esophagus present at the gastroesophageal junction. The maximum longitudinal extent of these mucosal changes was 1 cm in length. Mucosa was biopsied with a cold forceps for histology. The Z-line was irregular and was found 40 cm from the incisors. A small hiatal hernia was present. Diffuse mildly erythematous mucosa without bleeding was found in the gastric antrum. Biopsies were taken with a cold forceps for histology. The examined duodenum was normal. Biopsies were taken with a cold forceps for histology. Impression: - Esophageal mucosal changes consistent with Cloud's esophagus. Biopsied. - Z-line irregular, 40 cm from the incisors. - Small hiatal hernia. - Erythematous mucosa in the antrum. Biopsied. - Normal examined duodenum. Biopsied. Recommendation: - Await pathology results. - Discharge patient to home. - Resume previous diet. - Continue present medications. - Use sucralfate tablets 1 gram PO BID. Possible follow-up esophagogastroduodenoscopy in 3 years pending pathology Procedure Code(s): --- Professional --- 26784, Esophagogastroduodenoscopy, flexible, transoral; with biopsy, single or multiple Diagnosis Code(s): --- Professional --- K22.8, Other specified diseases of esophagus K44.9, Diaphragmatic hernia without obstruction or gangrene K31.89, Other diseases of stomach and duodenum R10.13, Epigastric pain CPT copyright 2017 [employer]. All rights reserved. The codes documented in this report are preliminary and upon bander hand review may be revised to meet current compliance requirements. Carter Harden MD 02/14/2021 9:35:34 AM This report has been signed electronically. Number of Addenda: 0 Note Initiated On: 02/14/2021 9:10 AM
--- NOTE | 2021-02-14 13:12 | OP.CCLET_ITS ---
02/14/2021 Jessica Capone Re : Upper GI endoscopy procedure for Carter Margo Hernandezr Khari This procedure was performed on Sunday, February 14, 2021. My impressions and recommendations are as follows: Impressions : - Esophageal mucosal changes consistent with Cloud's esophagus. Biopsied. - Z-line irregular, 40 cm from the incisors. - Small hiatal hernia. - Erythematous mucosa in the antrum. Biopsied. - Normal examined duodenum. Biopsied. Recommendations : - Await pathology results. - Discharge patient to home. - Resume previous diet. - Continue present medications. - Use sucralfate tablets 1 gram PO BID. Possible follow-up esophagogastroduodenoscopy in 3 years pending pathology My findings are described in the full procedure note, which is enclosed. If I can be of further assistance, please feel free to contact me at Doctor phone number(s): Work: . Sincerely, Carter Harden MD 02/14/2021 9:35:34 AM This report has been signed electronically.
== END 2021-02-14 10:31 | disposition home or self-care (01) ==
LOC: EN 07:38 → AC 07:38
PROVIDERS: PCP Nurse Practitioner Adult Health; Referring Provider Nurse Practitioner Adult Health; Visit Provider Surgery
PROC: 0DJ08ZZ Inspection of Upper Intestinal Tract, Via Natural or Artificial Opening Endoscopic (ICD-10-PCS; CPT 43235; principal; 2021-02-14 08:55)
DX: K22.70 Barrett's esophagus without dysplasia (principal); K44.9 Diaphragmatic hernia without obstruction or gangrene; K21.9 Gastro-esophageal reflux disease without esophagitis; K42.9 Umbilical hernia without obstruction or gangrene; K22.8 Other specified diseases of esophagus; K31.89 Other diseases of stomach and duodenum; E11.9 Type 2 diabetes mellitus without complications; I10 Essential (primary) hypertension; F32.9 Major depressive disorder, single episode, unspecified; F41.9 Anxiety disorder, unspecified; Z79.84 Long term (current) use of oral hypoglycemic drugs; Z79.899 Other long term (current) drug therapy
CPT/HCPCS: 43239; 82962; 87426; 88305; 88313; 88341; 88342; C9803; J7120; J2405

== ENCOUNTER → 2021-02-27 18:40 | Outpatient (CLI) | payer MEDICAID, SELFPAY ==
[2021-02-14 08:18] VITALS: BMI 32.3
[2021-02-27 19:48] LABS: ALB/GLOB Ratio 0.9 RATIO (0.9-2.4); AST(SGOT) 52 U/L (15-37); Alanine Aminotransfer ALT/SGPT 112 U/L (16-61); Albumin, Serum 3.9 g/dL (3.2-5.0); Alkaline Phosphatase 75 U/L (45-117); Anion Gap 5 (5-15); BUN 11 mg/dL (7-18); BUN/Creat Ratio 11.4 RATIO (10-20); Calcium,Total 9.8 mg/dL (8.5-10.1); Chloride 102 mmol/L (98-107); Creatinine, Serum 0.96 mg/dL (0.70-1.30); EST Glomerular Filtration Rate 87 mL/min (>60); Est Glom Filt Rate - Afr Amer 105 mL/min (>60); Globulin 4.3 g/dL (2.2-4.2); Glucose 185 mg/dL (74-106); Potassium 4.2 mmol/L (3.5-5.1); Protein, Total 8.2 g/dL (6.4-8.2); Sodium Level 135 mmol/L (136-145)
== END ==
PROVIDERS: PCP Nurse Practitioner Adult Health; Visit Provider Nurse Practitioner Adult Health
DX: E11.42 Type 2 diabetes mellitus with diabetic polyneuropathy (principal)
CPT/HCPCS: 36415; 80053

== ENCOUNTER → 2021-03-13 17:24 | Outpatient (CLI) | payer MEDICAID, SELFPAY ==
[2021-03-14 08:57] LABS: Hepatitis B Surface Antigen Non-Reactive (Nonreactive)
[2021-03-15 16:34] LABS: ANTINUCLEAR ANTIBODIES DIRECT Negative (Negative)
[2021-03-15 20:08] LABS: HCV Quant. RNA PCR HCV Not Detected IU/mL (.)
[2021-03-15 20:51] LABS: Hepatitis A AB, Total Negative (Negative)
== END ==
PROVIDERS: PCP Nurse Practitioner Adult Health; Referring Provider Nurse Practitioner Adult Health; Visit Provider Nurse Practitioner Adult Health
DX: R94.5 Abnormal results of liver function studies (principal)
CPT/HCPCS: 36415; 86038; 86708; 87340; 87522

== ENCOUNTER → 2021-03-15 | Outpatient (CLI) | payer MEDICAID, SELFPAY ==
[2021-03-16 09:51] LABS: Hepatitis B Surface Antigen Non-Reactive (Nonreactive)
[2021-03-17 17:27] LABS: ANTINUCLEAR ANTIBODIES DIRECT Negative (Negative)
[2021-03-22 18:10] LABS: Hepatitis A AB, Total Negative (Negative)
[2021-03-23 20:08] LABS: HCV Quant. RNA PCR HCV Not Detected IU/mL (.)
== END | disposition home or self-care (01) ==
PROVIDERS: PCP Nurse Practitioner Adult Health; Visit Provider Nurse Practitioner Adult Health
DX: R94.5 Abnormal results of liver function studies (principal)
CPT/HCPCS: 36415; 86038; 86708; 87340; 87522

== ENCOUNTER → 2021-03-23 07:54 | Day surgery (SDC) | payer MEDICAID, SELFPAY ==
[2021-03-23] MEDS: Lidocaine 2% Jelly 1 APPLIC Tube (08:07)
[2021-03-23 08:11] VITALS: BP 146/97; PULSE 80; RESP 16; TEMP 36.3; O2SAT 98
== END ==
PROVIDERS: Anesthesiology; PCP Nurse Practitioner Adult Health; Referring Provider Surgery; Visit Provider Surgery
PROC: F00ZJWZ Instrumental Swallowing and Oral Function Assessment using Swallowing Equipment (ICD-10-PCS; CPT 43235; principal; 2021-03-23 07:55)
DX: Z01.818 Encounter for other preprocedural examination (principal); K21.9 Gastro-esophageal reflux disease without esophagitis
CPT/HCPCS: 91010; 87635; C9803; U0005; U0003

== ENCOUNTER → 2021-04-03 17:18 | Outpatient (CLI) | payer MEDICAID, SELFPAY ==
[2021-04-03 18:18] LABS: AST(SGOT) 82 U/L (15-37); Alanine Aminotransfer ALT/SGPT 129 U/L (16-61)
== END ==
PROVIDERS: PCP Nurse Practitioner Adult Health; Visit Provider Nurse Practitioner Adult Health
DX: R94.5 Abnormal results of liver function studies (principal)
CPT/HCPCS: 36415; 84450; 84460

== ENCOUNTER → 2021-05-17 | Outpatient (CLI) | payer MEDICAID, SELFPAY ==
[2021-05-17 19:01] LABS: BNP,B-Type NATRIURETIC PEPTIDE 10.8 pg/mL (0-100)
[2021-05-17 19:20] LABS: ALB/GLOB Ratio 0.9 RATIO (0.9-2.4); AST(SGOT) 40 U/L (15-37); Alanine Aminotransfer ALT/SGPT 85 U/L (16-61); Albumin, Serum 3.7 g/dL (3.2-5.0); Alkaline Phosphatase 78 U/L (45-117); Anion Gap 3 (5-15); BUN 22 mg/dL (7-18); BUN/Creat Ratio 16.9 RATIO (10-20); Calcium,Total 9.3 mg/dL (8.5-10.1); Chloride 102 mmol/L (98-107); Cholesterol 208 mg/dL (200); EST Glomerular Filtration Rate 61 mL/min (>60); Est Glom Filt Rate - Afr Amer 74 mL/min (>60); Globulin 4.3 g/dL (2.2-4.2); Glucose 211 mg/dL (74-106); High Density Lipoprotein 40 mg/dL; Potassium 4.2 mmol/L (3.5-5.1); Sodium Level 135 mmol/L (136-145); Triglycerides 191 mg/dL; Very Low Density Lipoprotein 38 mg/dL (5-40)
== END | disposition home or self-care (01) ==
PROVIDERS: PCP Nurse Practitioner Adult Health; Visit Provider Nurse Practitioner Adult Health
DX: E11.65 Type 2 diabetes mellitus with hyperglycemia (principal); I10 Essential (primary) hypertension; R06.02 Shortness of breath; E78.5 Hyperlipidemia, unspecified
CPT/HCPCS: 36415; 80053; 80061; 83880

== ENCOUNTER → 2021-06-02 12:26 | Outpatient (CLI) | payer MEDICAID, SELFPAY ==
--- NOTE | 2021-06-02 12:28 | STEWCON_ITS ---
Reason For Study: Chest Pain Stress Results Protocol: John Protocol WITH DEFINITY Maximum Predicted HR: 166 bpm Target HR: 141 bpm % Maximum Predicted HR: 89 % DurationHeart Rate Stage (mm:ss) (bpm) BP Comment Baseline 86 124/82No Chest Pain; 4 ML Diluted Definity John Protocol Stage I 3:00 112 134/78No Chest Pain John Protocol Stage II 3:00 123 150/76No Chest Pain; Mild Dyspnea John Protocol Stage III 3:00 141 148/72No Chest Pain; Mod Dyspnea John Protocol Stage IV 0:30 148 / No Chest Pain; Mod Dyspnea Recovery 88 124/84No Chest Pain; No Dyspnea Stress Duration: 9:30 mm:ss Maximum Stress HR: 148 bpm METS: 11 Baseline Echocardiogram Findings Stress Echo Wall motion Data Resting WM Intermediate WM Stress WM ECHO/Stress Test Echo W/Contrast Interpretation Summary Exercise stress echo with and without Definity. 56-year-old man with a history of diabetes and chest pain. Stress protocol: Resting EKG demonstrates normal sinus rhythm with a rate of 86 bpm normal inter vals are noted resting blood pressure is 124/82 mmHg. The patient exercised according to the r egular John protocol for a total duration of 9 minutes and 30 seconds. The maximum heart rate attain ed 148 bpm which was 89% of max impact at heart rate the maximum workload attained was 11.5 metaboli c equivalents. At rest there were no ST or T wave changes noted to suggest ischemia at peak exerc ise upsloping ST changes were noted with did not meet the criteria for ischemia. No clinical ang mitchell was noted the target heart rate was achieved necessitating termination of the test. The peak blood pressure was 150/76 mmHg. Stress echocardiogram. The resting echocardiogram performed with Definity enhancement demonstrated a r esting ejection fraction of 55%. With exercise there was improvement in left ventricular systol ic function peaking at approximately 65%. No wall motion abnormalities were noted to suggest ischem ia. Conclusion: Exercise stress echo with no EKG or echocardiographic criteria for ischemia at a high workload. Good functional aerobic capacity. Ordering Physician: Alea Lucia Referring Physician: Andre Ferreira MD Performed By: Danika Martin, RDCS, RVT
== END ==
PROVIDERS: PCP Nurse Practitioner Adult Health; Visit Provider Nurse Practitioner Adult Health
DX: R07.9 Chest pain, unspecified (principal)
CPT/HCPCS: 93017; 93350; Q9957; A4216; C8928; J3490

== ENCOUNTER 2021-07-10 18:40 | Emergency (ER) | payer MEDICAID, SELFPAY ==
[2021-07-10 18:42] VITALS: BP 156/104; PULSE 111; RESP 18; TEMP 36.1; O2SAT 95; BMI 33.6
[2021-07-10 21:16] VITALS: BP 165/103; PULSE 113; RESP 18; O2SAT 96
--- NOTE | 2021-07-10 21:33 | RAD_ITS ---
EXAM: XR CHEST, 1 VIEW CLINICAL INDICATION: cough TECHNIQUE: Frontal view of the chest. This report was created using [employer] report generation technology. COMPARISON: Chest x-ray 11/11/2017. FINDINGS: LUNGS AND PLEURAL SPACES: Unremarkable. No consolidation or edema. No pneumothorax. No effusion. HEART: Unremarkable. Cardiac silhouette not enlarged. MEDIASTINUM: Central airways and mediastinal contour are unremarkable. BONES/JOINTS: Degenerative changes of acromioclavicular joints and spine. SOFT TISSUES: Unremarkable. RAD/Chest 1 View (Portable) IMPRESSION: No radiographic evidence of acute cardiopulmonary disease. Electronically Signed: Balaji Feldman MD at 22:22 EST Tel , Service support ,
--- NOTE | 2021-07-10 21:34 | CT_ITS ---
EXAM: CT ABDOMEN AND PELVIS WITHOUT INTRAVENOUS CONTRAST CLINICAL INDICATION: umbilical hernia TECHNIQUE: Helically acquired images were obtained of the abdomen and pelvis without intravenous contrast. CTDIvol = ( 17.02 ) mGy, DLP = ( 897.08 ) mGycm This CT exam was performed using one or more of the following dose reduction techniques: automated exposure control, adjustment of the mA and/or kV according to patient size, and/or use of iterative reconstruction technique. This report was created using [employer] technology. COMPARISON: None. FINDINGS: LOWER THORAX: Small calcified granuloma at the right posterior aspect of the right lower lobe. No cardiomegaly. No significant pericardial effusion. ABDOMEN: LIVER: Unremarkable. Homogeneous. GALLBLADDER AND BILE DUCTS: Unremarkable. No calcified gallstones. No gallbladder distention or wall edema. No intra- or extrahepatic biliary ductal dilation. PANCREAS: Unremarkable. No focal cystic mass. SPLEEN: Unremarkable. Normal size without focal cystic or solid mass. ADRENALS: Unremarkable. No nodules. KIDNEYS AND URETERS: 5 mm nonobstructing calyceal calculus at the interpolar to lower pole of the left kidney. Smaller nonobstructing calyceal calculus at the lower pole left kidney. No hydronephrosis bilaterally. No renal masses. STOMACH AND BOWEL: Distal colonic diverticulosis but no acute diverticulitis. No colitis. No bowel obstruction. PELVIS: APPENDIX: No evidence of acute appendicitis. BLADDER: Surgical clips along the anterolateral aspect of the right and left pelvis at the level of the bladder. REPRODUCTIVE: Unremarkable as visualized. No mass. ABDOMEN and PELVIS: Midline rectus diastases. No significant umbilical hernia. INTRAPERITONEAL SPACE: Unremarkable. No ascites or other fluid collection. No free air. BONES/JOINTS: Degenerative changes of the pelvis and pubic symphysis. No suspicious lytic or sclerotic lesions of bone. SOFT TISSUES: Small fat-containing left inguinal hernia. VASCULATURE: Unremarkable. Abdominal aorta is non-dilated. LYMPH NODES: Unremarkable. No enlarged lymph nodes. CT/Abdomen/Pelvis without Cont IMPRESSION: 5 mm nonobstructing calyceal calculus at the interpolar to lower pole of the left kidney. Smaller nonobstructing calyceal calculus at the lower pole left kidney No significant umbilical hernia. Electronically Signed: Balaji Feldman MD at 22:21 EST Tel , Service support ,
--- NOTE | 2021-07-10 21:34 | EX.ED.DYSGE1 ---
HPI History of Present Illness Chief Complaint: Cough Informant: patient Onset/Context/Timing Onset: Days (4 days) Context: Gradual Onset Current Severity: Mild Maximum Severity: Moderate Narrative Narrative: Patient presents with cough and abdominal pain around his hernia site when he coughs. He reports having sweats and believes he broke a fever. He had diarrhea. Cough is dry. He does not know of any exposure to Covid and is not vaccinated. His primary concern is that when he coughs he gets pain around his umbilical hernia site. [facility] Medical History Abdominal aortic aneurysm without rupture Altered bowel function Anxiety Depression Diabetes Dietary restriction Epigastric abdominal pain Gastric reflux Generalized abdominal pain GERD (gastroesophageal reflux disease) History of stress test Hypertension Leg cramps Non-smoker Prostatitis Restless legs Shortness of breath on exertion Type 2 diabetes mellitus UTI (urinary tract infection) Home Medications metformin 1,000 mg PO BID 03/09/19 [History Last Taken 03/08/19] glimepiride 2 mg tablet 4 mg PO DAILY tab 07/27/19 [History Last Taken Unknown] omeprazole magnesium 20 mg tablet,delayed release 20 mg PO BID tab 07/27/19 [History Last Taken Unknown] dulaglutide 0.75 mg/0.5 mL subcutaneous pen injector 0.75 mg SUBCUT QWEEK 02/06/21 [History Last Taken Unknown] metoprolol succinate 50 mg tablet,extended release 24 hr 50 mg PO DAILY 02/06/21 [History Last Taken Unknown] sucralfate 1 gram tablet 1 g PO BID #120 tab 06/07/21 [Rx Last Taken Unknown] insulin detemir U-100 [Levemir FlexTouch U-100 Insuln] unit SUBCUT 07/10/21 [History Last Taken Unknown] Allergy/AdvReac Type Severity Reaction Status Date / Time No Known Allergies Allergy Verified 07/10/21 18:44 Family History Grandmother Breast cancer Father Cancer Pancreatic cancer Brother Diabetes Mother Heart disease Surgical History History of esophagogastroduodenoscopy History of esophagogastroduodenoscopy (EGD) History of laparoscopic cholecystectomy History of nasal surgery History of right knee surgery Hx of colonoscopy S/P bilateral inguinal hernia repair Social History Smoking Status: Never smoker alcohol intake: never substance use type: does not use ROS ROS ED Constitutional Constitutional ED: Reports fever(s), subjective and sweats; Denies chills Eyes Eyes: Denies change in vision ENT ENT ED: Denies sore throat Cardiovascular Cardiovascular: Denies chest pain Respiratory/Chest Respiratory/Chest: Reports cough and dyspnea Gastrointestinal Gastrointestinal: Reports abdominal pain and diarrhea; Denies nausea or vomiting Genitourinary Genitourinary ED: Denies dysuria Musculoskeletal Musculoskeletal: Denies back pain Integumentary Denies rash Neurologic Neurologic: Denies headache(s) or weakness Allergic/Immunologic Allergic/Immunologic ED: Denies urticaria EXAM Physical Exam Const Vital Signs: 07/10/21 18:42 07/10/21 21:16 Temperature 96.9 F L Temperature Source Temporal Pulse Rate 111 H 113 H Respiratory Rate 18 18 Blood Pressure 156/104 H 165/103 H Blood Pressure Mean 121 123 Pulse Ox 95 96 Oxygen Delivery Method Room Air Room Air Positive well nourished and well developed General Appearance ED: well developed Neck supple Chest Wall inspection of chest normal and palpation of chest normal Resp normal respiratory effort Cardio regular rate and regular rhythm GI GI Narrative: Tenderness around umbilical hernia site. Palpation: soft Rectal Exam: tenderness Extremity normal to inspection Neuro oriented x3 Sensorium / Orientation: alert Skin no rashes or lesions noted MDM MDM MDM Narrative Medical decision making narrative: Covid test obtained. Chest x-ray and CT abdomen pelvis without contrast ordered. Radiography Chest X-Ray - ED: 1 View, Read by ED Physician and Chronic Changes Diagnostic Testing: Clinical Impression(s) from Imaging Studies Chest X-Ray 07/10/21 21:33 IMPRESSION: No radiographic evidence of acute cardiopulmonary disease. Electronically Signed: Balaji Feldman MD at 22:22 EST Tel , Service support , Abdomen/Pelvis CT 07/10/21 21:34 IMPRESSION: 5 mm nonobstructing calyceal calculus at the interpolar to lower pole of the left kidney. Smaller nonobstructing calyceal calculus at the lower pole left kidney No significant umbilical hernia. Electronically Signed: Balaji Feldman MD at 22:21 EST Tel , Service support , Treatment and Re-Evaluation Comments:: Covid test is negative. Chest x-ray reveals no focal infiltrate. CT scan reveals stones in the left kidney. No evidence of umbilical hernia. I did discuss test results with the patient. He likely has some pulling on prior scar tissue from previous hernia repair. Supportive care is discussed and recommended. Discharge Plan Triage Chief Complaint: Cough Other Complaint: Abd Pain ED Provider: Mya Lizarraga Dx/Rx/DC Orders Clinical Impression: Viral URI Instructions: ED URI, Viral, No Abx (Adult) Prescriptions: No Action glimepiride 2 mg tablet 4 mg PO DAILY RF: 0 metoprolol succinate 50 mg tablet extended release 24 hr 50 mg PO DAILY RF: 0 Trulicity 0.75 mg/0.5 mL pen injector 0.75 mg subcut QWEEK RF: 0 metformin 500 MG tablet 1,000 mg PO BID RF: 0 omeprazole magnesium 20 mg tablet,delayed release (DR/EC) 20 mg PO BID RF: 0 Levemir FlexTouch U-100 Insuln 100 unit/mL (3 mL) insulin pen SUBCUT RF: 0 sucralfate [Carafate] 1 gram tablet 1 g PO BID Qty: 120 RF: 4 Primary Care Provider: Alea Lucia Referrals: Alea Lucia, [employer] [Primary Care Provider] - 1 Week if not improving Disposition Disposition: Home, Self Care
[2021-07-10 23:14] VITALS: PULSE 99; RESP 16; O2SAT 99
== END 2021-07-10 23:15 | disposition home or self-care (01) ==
PROVIDERS: Emergency Provider Emergency Medicine; PCP Nurse Practitioner Adult Health
DX: J06.9 Acute upper respiratory infection, unspecified (principal); Z20.822 Contact with and (suspected) exposure to COVID-19; R10.9 Unspecified abdominal pain; R19.7 Diarrhea, unspecified; E11.9 Type 2 diabetes mellitus without complications; I10 Essential (primary) hypertension; K21.9 Gastro-esophageal reflux disease without esophagitis; F32.A Depression, unspecified; F41.9 Anxiety disorder, unspecified; Z79.4 Long term (current) use of insulin; Z79.899 Other long term (current) drug therapy
CPT/HCPCS: 71045; 74176; 87426; 99282

== ENCOUNTER 2021-07-29 18:01 | Outpatient (CLI) | payer MEDICAID, SELFPAY ==
[2021-07-29 18:43] LABS: ALB/GLOB Ratio 0.9 RATIO (0.9-2.4); AST(SGOT) 46 U/L (15-37); Alanine Aminotransfer ALT/SGPT 96 U/L (16-61); Albumin, Serum 3.7 g/dL (3.2-5.0); Alkaline Phosphatase 71 U/L (45-117); Anion Gap 7 (5-15); BUN 16 mg/dL (7-18); BUN/Creat Ratio 17.3 RATIO (10-20); Calcium,Total 10.3 mg/dL (8.5-10.1); Chloride 101 mmol/L (98-107); Cholesterol 220 mg/dL (200); Creatinine, Serum 0.92 mg/dL (0.70-1.30); EST Glomerular Filtration Rate 90 mL/min (>60); Est Glom Filt Rate - Afr Amer 109 mL/min (>60); Globulin 4.2 g/dL (2.2-4.2); Glucose 89 mg/dL (74-106); High Density Lipoprotein 41 mg/dL; Protein, Total 7.9 g/dL (6.4-8.2); Sodium Level 136 mmol/L (136-145); Triglycerides 356 mg/dL; Very Low Density Lipoprotein 71 mg/dL (5-40)
== END 2021-07-29 23:59 | disposition short-term general hospital (02) ==
LOC: LAB 18:01
PROVIDERS: PCP Nurse Practitioner Adult Health; Visit Provider Nurse Practitioner Adult Health
DX: E78.5 Hyperlipidemia, unspecified (principal)
CPT/HCPCS: 36415; 80053; 80061; 82043

== ENCOUNTER 2021-08-24 18:43 | Outpatient (CLI) | payer MEDICAID, SELFPAY ==
[2021-08-25 08:32] LABS: Hepatitis B Surface Antigen Non-Reactive (Nonreactive)
[2021-08-26 14:49] LABS: ANTINUCLEAR ANTIBODIES DIRECT Negative (Negative)
[2021-08-28 17:07] LABS: Hepatitis A AB, Total Negative (Negative)
== END 2021-08-24 23:59 | disposition home or self-care (01) ==
PROVIDERS: Visit Provider Nurse Practitioner Adult Health
DX: R94.5 Abnormal results of liver function studies (principal)
CPT/HCPCS: 36415; 86038; 86708; 87340; 87521

== ENCOUNTER → 2021-11-22 | Outpatient (CLI) | payer MEDICAID, SELFPAY ==
[2021-11-22 18:20] LABS: AST(SGOT) 43 U/L (15-37); Alanine Aminotransfer ALT/SGPT 85 U/L (16-61); Albumin, Serum 3.9 g/dL (3.2-5.0); Alkaline Phosphatase 75 U/L (45-117); Anion Gap 7 (5-15); BUN 21 mg/dL (7-18); BUN/Creat Ratio 18.8 RATIO (10-20); Calcium,Total 9.8 mg/dL (8.5-10.1); Chloride 106 mmol/L (98-107); Cholesterol 154 mg/dL (200); Creatinine, Serum 1.12 mg/dL (0.70-1.30); EST Glomerular Filtration Rate 72 mL/min (>60); Est Glom Filt Rate - Afr Amer 88 mL/min (>60); Glucose 129 mg/dL (74-106); High Density Lipoprotein 48 mg/dL; Potassium 4.3 mmol/L (3.5-5.1); Protein, Total 7.9 g/dL (6.4-8.2); Sodium Level 138 mmol/L (136-145); Triglycerides 121 mg/dL; Very Low Density Lipoprotein 24 mg/dL (5-40)
== END | disposition home or self-care (01) ==
PROVIDERS: Referring Provider Nurse Practitioner Adult Health; Visit Provider Nurse Practitioner Adult Health
DX: E11.65 Type 2 diabetes mellitus with hyperglycemia (principal)
CPT/HCPCS: 36415; 80053; 80061

== ENCOUNTER → 2021-12-14 | Outpatient (CLI) | payer MEDICAID, SELFPAY ==
[2021-12-14 19:52] LABS: AST(SGOT) 34 U/L (15-37); Alanine Aminotransfer ALT/SGPT 65 U/L (16-61)
== END | disposition home or self-care (01) ==
PROVIDERS: Visit Provider Nurse Practitioner Adult Health
DX: R94.5 Abnormal results of liver function studies (principal)
CPT/HCPCS: 36415; 82247; 84450; 84460

== ENCOUNTER → 2022-03-05 | Outpatient (CLI) | payer MEDICAID, SELFPAY ==
[2022-03-05 18:02] LABS: Absolute Neutrophil Count 4.7 X10^3/uL (2.0-7.7); Basophil# 0.04 X10^3/uL; Basophil% 0.4 % (0-1); Eosinophil# 0.11 X10^3/uL; Eosinophils% 1.2 % (0-5); Hematocrit 44.9 % (40-54); Hemoglobin 15.9 g/dL (13.0-16.5); Lymphocyte % 36.9 % (19-41); Mean Corp Hgb Conc 35.4 g/dL (32-36); Mean Corpuscular Hgb 31.2 pg (27.0-32.0); Mean Corpuscular Volume 88.2 fL (80-94); Monocyte# 0.75 X10^3/uL; Monocyte% 8.4 % (0-10); NRBC Flagged by Analyzer 0 % (0-5); Neutrophil % 52.7 % (47-70); Platelet Count 204 K/mm3 (150-450); RBC Distribution Width CV 12.7 % (11.6-14.6); RBC Distribution Width SD 41.1 fl (35.1-43.9); Red Blood Count 5.09 M/mm3 (4.6-6.2); White Blood Count 8.9 K/mm3 (4.4-11.0)
[2022-03-05 18:42] LABS: ALB/GLOB Ratio 0.9 RATIO (0.9-2.4); AST(SGOT) 47 U/L (15-37); Alanine Aminotransfer ALT/SGPT 67 U/L (16-61); Albumin, Serum 3.5 g/dL (3.2-5.0); Alkaline Phosphatase 87 U/L (45-117); Anion Gap 6 (5-15); BUN 14 mg/dL (7-18); BUN/Creat Ratio 12.6 RATIO (10-20); Calcium,Total 8.5 mg/dL (8.5-10.1); Chloride 100 mmol/L (98-107); Creatinine, Serum 1.11 mg/dL (0.70-1.30); EST Glomerular Filtration Rate 73 mL/min (>60); Est Glom Filt Rate - Afr Amer 88 mL/min (>60); Glucose 313 mg/dL (74-106); Lipase 473 U/L (73-393); Potassium 4.2 mmol/L (3.5-5.1); Protein, Total 7.5 g/dL (6.4-8.2); Sodium Level 135 mmol/L (136-145); Thyroid Stim Hormone (TSH) 1.72 uIU/mL (0.358-3.74)
[2022-03-05 18:46] LABS: Microalbumin,Random Urine 22.5 mg/L (NO RANGE EST.); Microalbumin:Creatinine Ratio 15.1 mg/g CRE (<30 mg/g CRE)
== END | disposition home or self-care (01) ==
PROVIDERS: Visit Provider Nurse Practitioner Adult Health
DX: E11.65 Type 2 diabetes mellitus with hyperglycemia (principal); R10.84 Generalized abdominal pain
CPT/HCPCS: 36415; 80053; 82043; 82570; 83690; 84443; 85025

== ENCOUNTER → 2022-04-02 | Outpatient (CLI) | payer MEDICAID, SELFPAY ==
[2022-04-02 19:06] LABS: ALB/GLOB Ratio 0.9 RATIO (0.9-2.4); AST(SGOT) 70 U/L (15-37); Alanine Aminotransfer ALT/SGPT 120 U/L (16-61); Albumin, Serum 3.5 g/dL (3.2-5.0); Alkaline Phosphatase 83 U/L (45-117); Anion Gap 8 (5-15); BUN 12 mg/dL (7-18); BUN/Creat Ratio 13.1 RATIO (10-20); Calcium,Total 9.5 mg/dL (8.5-10.1); Chloride 101 mmol/L (98-107); Creatinine, Serum 0.92 mg/dL (0.70-1.30); EST Glomerular Filtration Rate 91 mL/min (>60); Est Glom Filt Rate - Afr Amer 110 mL/min (>60); Glucose 201 mg/dL (74-106); Lipase 244 U/L (73-393); Potassium 3.9 mmol/L (3.5-5.1); Protein, Total 7.5 g/dL (6.4-8.2); Sodium Level 138 mmol/L (136-145)
== END | disposition home or self-care (01) ==
PROVIDERS: Visit Provider Family Medicine
DX: E11.65 Type 2 diabetes mellitus with hyperglycemia (principal); R10.84 Generalized abdominal pain; R74.8 Abnormal levels of other serum enzymes
CPT/HCPCS: 36415; 80053; 83036; 83690

== ENCOUNTER → 2022-05-10 | Outpatient (CLI) | payer MEDICAID, SELFPAY ==
[2022-05-10 10:36] LABS: Erythrocyte Sedimentation Rate 4 mm/hr (0-20)
[2022-05-10 10:42] LABS: Absolute Lymphocyte Count 2.75 X10^3/uL (0.83-4.51); Absolute Neutrophil Count 5.6 X10^3/uL (2.0-7.7); Basophil# 0.05 X10^3/uL; Basophil% 0.5 % (0-1); Eosinophils% 1.1 % (0-5); Hematocrit 49.5 % (40-54); Hemoglobin 16.5 g/dL (13.0-16.5); Lymphocyte # 2.75 X10^3/ul (0.83-4.51); Lymphocyte % 29.8 % (19-41); Mean Corp Hgb Conc 33.3 g/dL (32-36); Mean Corpuscular Hgb 29.9 pg (27.0-32.0); Mean Corpuscular Volume 89.7 fL (80-94); Monocyte# 0.75 X10^3/uL; Monocyte% 8.1 % (0-10); NRBC Flagged by Analyzer 0 % (0-5); Neutrophil # 5.55 X10^3/uL (2.7-7.7); Neutrophil % 60.1 % (47-70); Platelet Count 235 K/mm3 (150-450); RBC Distribution Width CV 13.1 % (11.6-14.6); Red Blood Count 5.52 M/mm3 (4.6-6.2); White Blood Count 9.2 K/mm3 (4.4-11.0)
[2022-05-10 10:59] LABS: Hemoglobin A1c 10.1 % (3.8-5.6)
[2022-05-10 11:32] LABS: Vitamin D,25 Hydroxy 30.5 ng/mL
[2022-05-10 11:50] LABS: AST(SGOT) 38 U/L (15-37); Alanine Aminotransfer ALT/SGPT 81 U/L (16-61); Albumin, Serum 4.1 g/dL (3.2-5.0); Alkaline Phosphatase 76 U/L (45-117); Anion Gap 4 (5-15); BUN 15 mg/dL (7-18); BUN/Creat Ratio 15.6 RATIO (10-20); CRP < 2.90 mg/L (0.0-3.0); Calcium,Total 9.6 mg/dL (8.5-10.1); Chloride 104 mmol/L (98-107); Creatinine, Serum 0.96 mg/dL (0.70-1.30); EST Glomerular Filtration Rate 86 mL/min (>60); Est Glom Filt Rate - Afr Amer 105 mL/min (>60); Ferritin 52 ng/mL (26-388); Free T3 2.9 pg/mL (2.18-3.98); Globulin 4.2 g/dL (2.2-4.2); Glucose 101 mg/dL (74-106); LDH 215 U/L (87-241); Potassium 4.1 mmol/L (3.5-5.1); Protein, Total 8.3 g/dL (6.4-8.2); Sodium Level 137 mmol/L (136-145); T4 Free Direct 0.83 ng/dL (0.76-1.46); Thyroid Stim Hormone (TSH) 1.13 uIU/mL (0.358-3.74)
[2022-05-11 15:08] LABS: Endomysial Antibody IgA Negative (Negative)
[2022-05-12 09:48] LABS: Immunoglobulin A 292 mg/dL (90-386); t-Transglutaminase IgA <2 U/mL (0-3)
[2022-05-15 18:20] LABS: Anti-Mitochondrial AB <20.0 Units (0.0-20.0); Vitamin D 1,25-Dihydroxy 54.7 pg/mL (24.8-81.5)
[2022-05-21 18:07] LABS: Angiotensin Convert Enzyme 46 U/L (14-82); Ceruloplasmin 19.8 mg/dL (16.0-31.0); Cytoplasmic Ab (C-ANCA) <1:20 titer (Neg:<1:20); Immunoglobulin A 296 mg/dL (90-386); Immunoglobulin E 22 IU/mL (6-495); Immunoglobulin G 1419 mg/dL (603-1613)
[2022-05-24 10:18] LABS: AFP, Tumor Marker 1.1 ng/mL (0.0-8.4); Anti-Smooth Muscle ABS 10 Units (0-19); Immunoglobulin M 103 mg/dL (20-172); Perinuclear Ab (P-ANCA) <1:20 titer (Neg:<1:20)
== END | disposition home or self-care (01) ==
LOC: LAB 10:02
PROVIDERS: Referring Provider Internal Medicine Gastroenterology; Visit Provider Internal Medicine Gastroenterology
DX: K22.70 Barrett's esophagus without dysplasia (principal); R10.13 Epigastric pain; K21.9 Gastro-esophageal reflux disease without esophagitis
CPT/HCPCS: 36415; 80053; 80074; 82105; 82140; 82164; 82306; 82390; 82652; 82728; 82784; 82785; 83036; 83516; 83615; 84439; 84443; 84481; 85025; 85652; 86140; 86255; 86256

== ENCOUNTER → 2022-05-11 | Outpatient (CLI) | payer MEDICAID, SELFPAY ==
[2022-05-17 15:44] LABS: Pancreatic Elastase, Fecal 436 (>200)
[2022-05-17 15:51] LABS: Calprotectin, Stool 36 ug/g (0-120); Fats, Neutral Increased (.); Fats, Total Increased (.)
== END | disposition home or self-care (01) ==
LOC: LABSPEC 06:29
PROVIDERS: Referring Provider Internal Medicine Gastroenterology; Visit Provider Internal Medicine Gastroenterology
DX: R19.7 Diarrhea, unspecified (principal); K22.70 Barrett's esophagus without dysplasia; R10.13 Epigastric pain; K21.9 Gastro-esophageal reflux disease without esophagitis; K58.9 Irritable bowel syndrome, unspecified
CPT/HCPCS: 82653; 82705; 83630; 83993; 87177; 87209; 87329; 87493; 87506

== ENCOUNTER → 2022-05-22 | Outpatient (CLI) | payer MEDICAID, SELFPAY ==
--- NOTE | 2022-05-22 12:39 | NM_ITS ---
CLINICAL: 57-year-old male with history of clinical gastroparesis. SEMI-SOLID PHASE 99m Tc SULFUR COLLOID GASTRIC EMPTYING STUDY COMPARISON: None available FINDINGS: The patient was administered 1.1 mCi of 99m Tc sulfur colloid mixed with oatmeal and consumed per os. Image acquisitions in the anterior-posterior projections were obtained for 60 minutes. There is prompt visualization of the stomach. There is no gastroesophageal reflux identified. The T ? emptying was calculated to be 25.39 minutes, (Normal: 12-56 minutes). NM/Gastric Emptying Study IMPRESSION: 1. NORMAL 99m Tc sulfur colloid semi-solid phase (oatmeal) gastric emptying imaging examination. A. There is normal and preserved semi-solid phase gastric emptying compared to normal controls. (Silverio et al, J Nucl Med Tech 38: 186, 2010). Electronically Signed: Christian Jones, at 21:48 EST ,
== END | disposition home or self-care (01) ==
PROVIDERS: Referring Provider Internal Medicine Gastroenterology; Visit Provider Internal Medicine Gastroenterology
DX: K22.70 Barrett's esophagus without dysplasia (principal); R10.13 Epigastric pain; K21.9 Gastro-esophageal reflux disease without esophagitis
CPT/HCPCS: 78264; A9541

== ENCOUNTER → 2022-09-25 | Outpatient (CLI) | payer MEDICAID, SELFPAY ==
[2022-09-25 12:12] LABS: Absolute Lymphocyte Count 2.51 X10^3/uL (0.83-4.51); Absolute Neutrophil Count 5.8 X10^3/uL (2.0-7.7); Basophil# 0.03 X10^3/uL; Basophil% 0.3 % (0-1); Eosinophil# 0.06 X10^3/uL; Eosinophils% 0.6 % (0-5); Hematocrit 48.9 % (40-54); Hemoglobin 16.5 g/dL (13.0-16.5); Lymphocyte # 2.51 X10^3/ul (0.83-4.51); Lymphocyte % 27.1 % (19-41); Mean Corp Hgb Conc 33.7 g/dL (32-36); Mean Corpuscular Hgb 30.3 pg (27.0-32.0); Mean Corpuscular Volume 89.9 fL (80-94); Mean Platelet Vol. 10.4 fl (6.2-12.0); Monocyte# 0.84 X10^3/uL; Monocyte% 9.1 % (0-10); NRBC Flagged by Analyzer 0 % (0-5); Neutrophil % 62.6 % (47-70); Platelet Count 237 K/mm3 (150-450); RBC Distribution Width CV 13.2 % (11.6-14.6); RBC Distribution Width SD 43.3 fl (35.1-43.9); Red Blood Count 5.44 M/mm3 (4.6-6.2); White Blood Count 9.3 K/mm3 (4.4-11.0)
[2022-09-25 12:41] LABS: ALB/GLOB Ratio 0.9 RATIO (0.9-2.4); AST(SGOT) 56 U/L (15-37); Alanine Aminotransfer ALT/SGPT 90 U/L (16-61); Albumin, Serum 3.7 g/dL (3.2-5.0); Alkaline Phosphatase 78 U/L (45-117); Anion Gap 7 (5-15); BUN 13 mg/dL (7-18); BUN/Creat Ratio 14.3 RATIO (10-20); Calcium,Total 9.1 mg/dL (8.5-10.1); Chloride 104 mmol/L (98-107); Creatinine, Serum 0.91 mg/dL (0.70-1.30); EST Glomerular Filtration Rate 92 mL/min (>60); Est Glom Filt Rate - Afr Amer 111 mL/min (>60); Globulin 3.9 g/dL (2.2-4.2); Glucose 89 mg/dL (74-106); Lipase 168 U/L (73-393); Protein, Total 7.6 g/dL (6.4-8.2); Sodium Level 138 mmol/L (136-145)
--- NOTE | 2022-09-28 18:24 | US_ITS ---
EXAM: US ABDOMEN COMPLETE CLINICAL INDICATION: ABD PAIN TECHNIQUE: Real-time ultrasound of the abdomen with image documentation. This report was created using [employer] report generation technology. COMPARISON: None. FINDINGS: LIVER: Liver measures 18 cm. Increased echogenicity of the liver. No intrahepatic biliary ductal dilation. GALLBLADDER: Cholecystectomy. COMMON BILE DUCT: Unremarkable as visualized. The proximal common bile duct is within normal limits for the patient''s age. PANCREAS: Unremarkable as visualized. No focal abnormality is demonstrated in the pancreas. No pancreatic ductal dilatation. KIDNEYS: Unremarkable. There is no hydronephrosis. No shadowing calculus. No focal lesion or perinephric collection is demonstrated. SPLEEN: Unremarkable. The spleen is normal in size and homogeneous in echotexture. AORTA: Unremarkable. Submitted longitudinal images of the intra-abdominal aorta demonstrate no gross abnormalities and are unremarkable. INFERIOR VENA CAVA: Unremarkable. The IVC is patent. FREE FLUID: There is no free fluid. US/Abdomen Complete IMPRESSION: 1. Enlarged fatty liver. 2. Cholecystectomy. Electronically Signed: Rolly Contreras MD at 19:15 EDT ,
== END | disposition home or self-care (01) ==
DX: R10.84 Generalized abdominal pain (principal); E11.65 Type 2 diabetes mellitus with hyperglycemia
CPT/HCPCS: 36415; 76700; 80053; 83036; 83690; 85025

== ENCOUNTER 2022-12-04 05:06 | Day surgery (SDC) | payer MEDICAID, SELFPAY ==
[2022-12-04] VITALS (7 sets, daily range): BP systolic 101–140; BP diastolic 70–82; PULSE 63–80; RESP 14–18; TEMP 36.4; O2SAT 96–98; BMI 31.9
[2022-12-04] MEDS: Lactated Ringers 1,000 ML 15 ML IV (05:40)
--- NOTE | 2022-12-04 06:30 | COLBX_PTH ---
PATIENT: MARY LAAR LOC: [facility] U#:[id number] AGE/SX: 57/M ROOM: RE12/04/[address]: Dr. Matthew Wagoner DO : 1965 BED: DIS: 12/04/2022 SPEC #: [id number] RECD: 12/04/22 15:01 STATUS: DAR FLOYD #: [id number] ANDREW: 12/04/22 06:[address]: Matthew Wagoner DEPT: SURGICAL PATHOLOGY RECD BY: Art Gonzales ENTERED: 12/05/22 10:41 SP TYPE: COLON BX OTHR DR: Mey [facility] Tissues: A - Duodenum, NOS B - Gastric mucous membrane C - Esophagus, NOS D - Ileum, NOS E - COLON BIOPSY Procedures: Special Stain Group II Surgery Specimen Level IV Alcian Blue/PAS (control) HEADER OPERATION: Colonoscopy, EGD ([facility] [place] PRE-OP DIAGNOSIS: Epigastric abdominal pain, heartburn TISSUE SUBMITTED: A ? Duodenum biopsy, B ? Gastric body biopsy, C ? Distal esophagus biopsy, D ? Terminal ileum biopsy, E ? Random colon biopsy MICROSCOPIC DIAGNOSIS A. Duodenum, biopsy: Fragments of duodenal mucosa, no pathologic diagnosis. B. Gastric body, biopsy: Minimal gastritis. See microscopic description and comment. C. Distal esophagus, biopsy: Fragments of gastroesophageal mucosa with moderate chronic inflammation. Intestinal metaplasia (goblet cell metaplasia) not identified. See comment. D. Terminal ileum, biopsy: Fragments of small intestinal mucosa, no pathologic diagnosis. E. Colon, random biopsy: Fragments of colonic mucosa, no pathologic diagnosis. SJ:mercedes 12/06/2022 COMMENT B. The results of immunohistochemistry for Helicobacter pylori will be reported separately ([id number]). C. Alcian blue/PAS stain with matched control is used in the evaluation of the specimen. MICROSCOPIC DESCRIPTION Slides are reviewed. B. The specimen shows fragments of gastric mucosa with chronic inflammatory cell infiltrates in the lamina propria consisting of lymphocytes and plasma cells, consistent with minimal chronic gastritis. Focal mucosal congestion and hemorrhage are also noted. GROSS DESCRIPTION A - Received in fixative is one container labeled with the patient's name and designated duodenum biopsy. The specimen consists of multiple irregular fragments of light franks soft tissue that in aggregate measure 1.0 x 0.3 x 0.1 cm. The specimen is totally submitted in one cassette. B - Received in fixative is one container labeled with the patient's name and designated gastric body biopsy. The specimen consists of two irregular fragments of light franks soft tissue that in aggregate measure 1.0 x 0.3 x 0.1 cm. The specimen is totally submitted in one cassette. C - Received in fixative is one container labeled with the patient's name and designated distal esophagus biopsy. The specimen consists of multiple irregular fragments of light franks soft tissue that in aggregate measure 1.2 x 0.3 x 0.1 cm. The specimen is totally submitted in one cassette. D - Received in fixative is one container labeled with the patient's name and designated terminal ileum biopsy. The specimen consists of multiple irregular fragments of light franks soft tissue that in aggregate measure 0.8 x 0.6 x 0.1 cm. The specimen is totally submitted in one cassette. E - Received in fixative is one container labeled with the patient's name and designated random colon biopsy. The specimen consists of multiple irregular fragments of light franks soft tissue that in aggregate measure 1.5 x 0.7 x 0.1 cm. The specimen is totally submitted in one cassette. / SJ:rg 12/05/2022 TC:3 CPT: 88565 x5, 34287
--- NOTE | 2022-12-04 06:30 | IMM_PTH ---
PATIENT: MARY LARA LOC: EN U#:[id number] AGE/SX: 57/M ROOM: RE12/04/[address]: Dr. Matthew Wagoner DO : 1965 BED: DIS: 12/04/2022 SPEC #: [id number] RECD: 12/05/22 08:36 STATUS: DAR REAliza #: [id number] ANDREW: 12/04/22 06:[address]: Matthew Wagoner DEPT: IMMUNOHISTOCHEMISTRY RECD BY: Ana Angela ENTERED: 12/05/22 08:36 SP TYPE: IMMUNO OTHR DR: Mey [facility] Tissues: B - Stomach, NOS Procedures: H Pylori (initial) PHYSICIAN & INSTITUTION [place] [id number] SPECIMEN INFORMATION: Tissue Source: B ? Gastric body Clinical Info: Diarrhea, epigastric abdominal pain, heartburn Specimen Number: [id number] CPT code: 81384 METHODOLOGY: Deparaffinized sections of prefer/formalin-fixed tissue or PAP/DQ stained slides are incubated with monoclonal/polyclonal antibodies/oligonucleotide probes. Localization is made via biotin free immunoperoxidase method. Appropriate controls are performed and reacted as expected. Results on target cell population are indicated in the following table: RESULTS: ANTIBODY / CLONE RESULT Block B H Pylori (polyclonal) negative These tests were developed and their performance characteristics determined by [facility]. They may not have been cleared or approved by the U.S. Food and Drug Administration. The FDA has determined that such clearance or approval is not necessary. The above immunohistochemical/dualISH markers are ordered and reviewed by the Pathologist. INTERPRETATION: B. Gastric body, biopsy: Negative for Helicobacter pylori organisms. SJ:mercedes 12/06/2022
--- NOTE | 2022-12-04 06:37 | PCM.HP.BLA ---
History and Physical Date of Admission: 12/04/22 57 M who presents to the office today for Follow up. Carter established with this clinic 05.10.22 with referral from PCP for evaluation of abdominal pain and watery diarrhea with mucus occurring multiple times a day with urgency causing incontinence. PMH DMII FH paternal grandfather with colon cancer, father pancreatic cancer EGD 02.14.[address] Kiko Harden for abdominal pain finding esophageal changes consistent with Cloud?s esophagus, biopsy confirmed; irregular zline; small hiatal hernia; erythematous mucosa of antrum, gastritis. H.Pylori negative. CT abd/pel 07.10.21 for umbilical hernia finding normal liver; distal colonic diverticulosis. Biochemical workup AST H43, total bilirubin H1.40 Biochemical workup hepatitis, SERVANDO, ANCA, AFP, AMA, ASM, ceruloplasmin, GAME, Vit D 1,25, celiac, TSH, T3, Vit D25, CRP, LDH, ammonia, ferritin, CMP, ESR, CBC?without pertinent abnormality. ASTH38/ALT H81, A1c H10.1 Stool testing calprotectin, elastase, ova/parasite, giardia, C.Difficile, enteric pathogens WNL Lactoferrin +, fecal fats elevated Gastric emptying study 05.22.22 WNL with time at 25.39 minutes (12-56). Plan LV 05.10.22: Epigastric pain ? GET Cloud?s esophagus ? repeat EGD in approximately 3 months. GERD ? likely r/t poorly controlled DM. Await GET Diarrhea ? recommend biochemical workup and stool testing Hepatitis ? Feels he is doing better since LV. Postprandial lower abdominal pain and loose stools, he has not identified a particular food trigger. He has been taking cinnamon pills for the last three months and feels this has been helpful with reduction of his diarrhea frequency and urgency. Cinnamon has also been helpful with glucose control. ROS Const Constitutional: No fatigue, fever(s), frequent falls, headache(s) or weight change ENT ENT: No headache(s) or difficulty swallowing Cardio Cardiology: No leg pain with exertion Gastro GI: Positive for abdominal pain, cramping, diarrhea, heartburn and incontinent of stools; No bloating, change in bowel habits, constipation, difficulty swallowing, Vomiting blood/hematemesis, Blood in stool, nausea/dyspepsia or vomiting Musc Musculoskeletal: No abnormal gait, joint pain, back pain, joint swelling, muscle cramps, muscle weakness, numbness, stiffness, tingling, Arthritis, sciatica, leg pain at night or leg pain with exertion Skin Skin: No dry skin, lesions, itchy eyes or rash Neuro Neurology: No abnormal gait, dizziness, frequent falls, headache(s), numbness, tingling, tremor(s), Increased tone in limbs, paralysis or seizures Psych Psychiatric: No anxiety, No depression, No paranoia, No Behavioral Problems, No Compulsive Behavior, No hyperactivity, No inattentiveness, No obsessions/compulsions, No Temper Tantrums and No suicidal ideation Endo Endocrine: No fatigue or weight change Aller/Imm Allergy/Immunologic: No itchy eyes Sal/Lymp Hematologic/Lymphatic: No easy bleeding or easy bruising Exam Const General: cooperative, healthy appearing, comfortable and no acute distress Nutritional Appearance: obese Orientation: alert, awake and oriented x3 HENMT Head: normal to inspection Ears: hearing grossly normal bilaterally Nose: external nose normal Face and sinus: normal facial exam Eyes General: appearance normal, both eyes and all related structures Alignment and Position: alignment normal Sclera: sclerae normal Neck Neck: normal visual inspection and full ROM Carotids: normal carotid upstroke Chest Chest palpation & inspection: normal inspection of the chest Resp Effort & Inspection: normal respiratory effort, able to speak in complete sentences, symmetric chest movement, normal respiratory pattern, no audible wheezes and no cough Auscultation: Bilateral: Clear to Auscultation Cardio Rate: regular rate Rhythm: regular rhythm Heart Sounds: S1 normal and S2 normal Bruits: no carotid bruits GI Inspection: normal to inspection and obesity Musc Cervical Spine: normal cervical lordosis Thoracic/Lumbar Spine: thoracic and lumbar spine normal to inspection Skin General: no rashes or lesions noted Lesions: no lesions Rashes: no rashes Trauma: no lacerations or abrasions Wounds: no wounds Neuro General: patient alert, patient awake and patient oriented x3 Cognition: normal cognition Speech: speech normal Gait: normal gait Extrem General: normal to inspection, full ROM and no pedal edema Psych Appearance: grossly normal Mental Status: mental status grossly normal Mood: congruent mood Affect: normal affect Speech and Movement: speech and movement normal Attitude: cooperative Thought Process: normal Thought Content: normal Judgment: judgment good Quality Reporting Tobacco Screening ([facility] 138) Smoking Status: Never smoker Assessment and Plan Assessment and Plan (1) Diarrhea: ?Status:?Chronic ?Plan: Differential diagnosis for his diarrhea does include disease, diabetic diarrhea, medication induced diarrhea, microscopic colitis, collagenous colitis.? Biochemical testing and stool testing to make sure there is no infectious component to his diarrhea.? I think he is most likely having abdominal pain and exocrine pancreatic insufficiency.? We will put him on Zenpep 2 pills with each meal at a 40,000/pill dosage (2) Cloud's esophagus determined by biopsy: ?Status:?Chronic ?Plan: He is known to have Cloud's esophagus.? He will need to undergo an repeat upper endoscopy on in approximately next 3 months. (3) Hepatitis: ?Status:?Chronic (4) Epigastric abdominal pain: ?Status:?Acute ?Plan: The differential diagnosis for his epigastric pain does include gastroparesis, peptic ulcer disease.? He has not shown any signs of acute or chronic cholecystitis.? We will hold off on a gastric emptying study to evaluate the motility of the stomach until we see the effect of the pancreatic enzymes. (5) GERD (gastroesophageal reflux disease): ?Status:?Chronic ?Qualifiers: ?Esophagitis presence:?with esophagitis??Esophagitis bleeding:?without hemorrhage? Qualified Code(s):?K21.00 - Gastro-esophageal reflux disease with esophagitis, without bleeding ?Plan: His gastroesophageal reflux is likely uncontrolled due to poorly controlled diabetes mellitus.? I will not make any changes in his PPI therapy. ? ? ? Medications: New [id number] 40,000-126,000- 168,000 unit (Zenpep) 2 caps? PO TID 320 caps 3RF ? ? Changed From omeprazole magnesium 40 mg? PO BID acid reflux ? ? To omeprazole magnesium 40 mg (2 x 20 mg) PO DAILY 90 tabs 3RF acid reflux ? ? I have examined the patient and the H&P has been reviewed. There are no clinical changes since date of exam.
--- NOTE | 2022-12-04 07:14 | OP.EGD_ITS ---
Patient Name: Carter Aragon Procedure Date: 12/04/2022 6:19 AM Date of : 1965 Age: 57 Procedure: Upper GI endoscopy Indications: Epigastric abdominal pain, Heartburn, Follow-up of Cloud's esophagus Providers: Matthew Wagoner DO Referring MD: Matthew Wagoner DO Medicines: Monitored Anesthesia Care Patient Profile: This is a 57 year old male. Refer to note in patient chart for documentation of history and physical. Patient has symptoms of chronic abdominal cramping and chronic heartburn. Complications: No immediate complications. Procedure: Pre-Anesthesia Assessment: - Prior to the procedure, a History and Physical was performed, and patient medications and allergies were reviewed. The patient is competent. The risks and benefits of the procedure and the sedation options and risks were discussed with the patient. All questions were answered and informed consent was obtained. Patient identification and proposed procedure were verified by the physician in the pre-procedure area. Mental Status Examination: alert and oriented. Airway Examination: normal oropharyngeal airway and neck mobility. Respiratory Examination: clear to auscultation. CV Examination: normal. Prophylactic Antibiotics: The patient does not require prophylactic antibiotics. Prior Anticoagulants: The patient has taken no previous anticoagulant or antiplatelet agents. ASA Grade Assessment: II - A patient with mild systemic disease. After reviewing the risks and benefits, the patient was deemed in satisfactory condition to undergo the procedure. The anesthesia plan was to use monitored anesthesia care (MAC). Immediately prior to administration of medications, the patient was re-assessed for adequacy to receive sedatives. The heart rate, respiratory rate, oxygen saturations, blood pressure, adequacy of pulmonary ventilation, and response to care were monitored throughout the procedure. The physical status of the patient was re-assessed after the procedure. After obtaining informed consent, the endoscope was passed under direct vision. Throughout the procedure, the patient's blood pressure, pulse, and oxygen saturations were monitored continuously. The Colonoscope was introduced through the mouth, and advanced to the second part of duodenum. The upper GI endoscopy was accomplished without difficulty. The patient tolerated the procedure well. Scope In: 6:43:36 AM Scope Out: 6:49:00 AM Total Procedure Duration Time 0 hours 5 minutes 24 seconds Findings: The Z-line was irregular and was found 42 cm from the incisors. Biopsies were taken with a cold forceps for histology. Verification of patient identification for the specimen was done. Estimated blood loss was minimal. Patchy mildly erythematous mucosa without bleeding was found in the gastric body. Biopsies were taken with a cold forceps for histology. Verification of patient identification for the specimen was done. Estimated blood loss was minimal. Patchy mildly erythematous mucosa without active bleeding and with no stigmata of bleeding was found in the duodenal bulb. Biopsies for histology were taken with a cold forceps for evaluation of celiac disease. Verification of patient identification for the specimen was done. Estimated blood loss was minimal. Impression: - Z-line irregular, 42 cm from the incisors. Biopsied. - Erythematous mucosa in the gastric body. Biopsied. - Erythematous duodenopathy. Biopsied. Recommendation: - Discharge patient to home. - Resume previous diet. - Continue present medications. - Await pathology results. Procedure Code(s): --- Professional --- 85958, Esophagogastroduodenoscopy, flexible, transoral; with biopsy, single or multiple CPT copyright 2017 [employer]. All rights reserved. The codes documented in this report are preliminary and upon irrigating pump operator review may be revised to meet current compliance requirements. Matthew Wagoner DO 12/04/2022 7:14:07 AM This report has been signed electronically. Number of Addenda: 0 Note Initiated On: 12/04/2022 6:19 AM
--- NOTE | 2022-12-04 07:15 | OP.CCLET_ITS ---
12/04/2022 Mey Johnson [facility] Re : [facility] This procedure was performed on Sunday, December 04, 2022. My impressions and recommendations are as follows: Impressions : - Z-line irregular, 42 cm from the incisors. Biopsied. - Erythematous mucosa in the gastric body. Biopsied. - Erythematous duodenopathy. Biopsied. Recommendations : - Discharge patient to home. - Resume previous diet. - Continue present medications. - Await pathology results. My findings are described in the full procedure note, which is enclosed. If I can be of further assistance, please feel free to contact me at . Sincerely, Matthew Wagoner, 12/04/2022 7:14:07 AM This report has been signed electronically.
--- NOTE | 2022-12-04 07:17 | OP.COLON_ITS ---
Patient Name: Carter Aragon Procedure Date: 12/04/2022 6:49 AM Date of : 1965 Age: 57 Procedure: Colonoscopy Indications: Clinically significant diarrhea of unexplained origin Providers: Matthew Wagoner DO Referring MD: Matthew Wagoner DO Medicines: Monitored Anesthesia Care Patient Profile: This is a 57 year old male. Refer to note in patient chart for documentation of history and physical. Patient has symptoms of chronic abdominal cramping and chronic heartburn. Last Colonoscopy: date unknown. Unable to locate last colonoscopy report. Complications: No immediate complications. Procedure: Pre-Anesthesia Assessment: - Prior to the procedure, a History and Physical was performed, and patient medications and allergies were reviewed. The patient is competent. The risks and benefits of the procedure and the sedation options and risks were discussed with the patient. All questions were answered and informed consent was obtained. Patient identification and proposed procedure were verified by the physician in the pre-procedure area. Mental Status Examination: alert and oriented. Airway Examination: normal oropharyngeal airway and neck mobility. Respiratory Examination: clear to auscultation. CV Examination: normal. Prophylactic Antibiotics: The patient does not require prophylactic antibiotics. Prior Anticoagulants: The patient has taken no previous anticoagulant or antiplatelet agents. ASA Grade Assessment: II - A patient with mild systemic disease. After reviewing the risks and benefits, the patient was deemed in satisfactory condition to undergo the procedure. The anesthesia plan was to use monitored anesthesia care (MAC). Immediately prior to administration of medications, the patient was re-assessed for adequacy to receive sedatives. The heart rate, respiratory rate, oxygen saturations, blood pressure, adequacy of pulmonary ventilation, and response to care were monitored throughout the procedure. The physical status of the patient was re-assessed after the procedure. After I obtained informed consent, the scope was passed under direct vision. Throughout the procedure, the patient's blood pressure, pulse, and oxygen saturations were monitored continuously. The Colonoscope was introduced through the anus and advanced to the terminal ileum. The colonoscopy was performed without difficulty. The patient tolerated the procedure well. The quality of the bowel preparation was adequate. Scope In: 6:51:24 AM Scope Withdrawal Time 0 hours 12 minutes 5 seconds Scope Out: 7:05:15 AM Total Procedure Duration Time 0 hours 13 minutes 51 seconds Findings: The perianal and digital rectal examinations were normal. An area of mildly congested mucosa was found in the recto-sigmoid colon, in the sigmoid colon and in the transverse colon. Biopsies were taken with a cold forceps for histology. Verification of patient identification for the specimen was done. Estimated blood loss was minimal. A patchy area of the terminal ileum was congested. Biopsies were taken with a cold forceps for histology. Verification of patient identification for the specimen was done. Estimated blood loss was minimal. Impression: - Congested mucosa in the recto-sigmoid colon, in the sigmoid colon and in the transverse colon. Biopsied. - Congested mucosa in the terminal ileum. Biopsied. Recommendation: - Discharge patient to home. - Resume previous diet. - Continue present medications. - Await pathology results. - Repeat colonoscopy is recommended for surveillance. The colonoscopy date will be determined after pathology results from today's exam become available for review. Procedure Code(s): --- Professional --- 43049, Colonoscopy, flexible; with biopsy, single or multiple CPT copyright 2017 [employer]. All rights reserved. The codes documented in this report are preliminary and upon rod buster review may be revised to meet current compliance requirements. Matthew Wagoner DO 12/04/2022 7:16:38 AM This report has been signed electronically. Number of Addenda: 0 Note Initiated On: 12/04/2022 6:49 AM
--- NOTE | 2022-12-04 07:17 | OP.CCLET_ITS ---
12/04/2022 Mey Johnson [facility] Re : Colonoscopy procedure for Carter Montesinos [facility] This procedure was performed on Sunday, December 04, 2022. My impressions and recommendations are as follows: Impressions : - Congested mucosa in the recto-sigmoid colon, in the sigmoid colon and in the transverse colon. Biopsied. - Congested mucosa in the terminal ileum. Biopsied. Recommendations : - Discharge patient to home. - Resume previous diet. - Continue present medications. - Await pathology results. - Repeat colonoscopy is recommended for surveillance. The colonoscopy date will be determined after pathology results from today's exam become available for review. My findings are described in the full procedure note, which is enclosed. If I can be of further assistance, please feel free to contact me at . Sincerely, Matthew Wagoner, 12/04/2022 7:16:38 AM This report has been signed electronically.
[2022-12-04 07:30] LABS: Bedside Glucose 269 mg/dL (74-106)
== END 2022-12-04 08:09 | disposition home or self-care (01) ==
LOC: EN 05:07 → AC 05:08
PROVIDERS: Visit Provider Internal Medicine Gastroenterology
PROC: 0DJD8ZZ Inspection of Lower Intestinal Tract, Via Natural or Artificial Opening Endoscopic (ICD-10-PCS; CPT 45378; principal; 2022-12-04 06:25)
DX: K22.70 Barrett's esophagus without dysplasia (principal); E11.9 Type 2 diabetes mellitus without complications; K29.70 Gastritis, unspecified, without bleeding; K21.00 Gastro-esophageal reflux disease with esophagitis, without bleeding; E66.9 Obesity, unspecified; K75.9 Inflammatory liver disease, unspecified; Z79.84 Long term (current) use of oral hypoglycemic drugs; Z79.899 Other long term (current) drug therapy
CPT/HCPCS: 43239; 45380; 82962; 88305; 88313; 88342; J7120; J2405

== ENCOUNTER → 2022-12-28 | Outpatient (CLI) | payer MEDICAID, SELFPAY ==
--- NOTE | 2022-12-28 08:00 | US_ITS ---
STUDY: ABDOMINAL ULTRASOUND - ELASTOGRAPHY REASON FOR VISIT: Male, 57 years old. Fatty infiltration of the liver. TECHNIQUE: Liver stiffness measurements were obtained on a [employer] RS 85 ultrasound machine using a CA 1-7 probe following the SRU guidelines. 3 measurements were obtained using a 2-D-SWE method. TheIQR/M was 19% suggesting a quality data set. TECHNICAL QUALITY: Adequate. COMPARISON: Comparison is made with prior study dated September 28, 2022. FINDINGS: Liver: Fatty infiltration of the liver. Mild hepatomegaly. Median liver stiffness measured 10.1 kPa. Abdomen: There is no demonstrated mass lesion. US/Elastography Parenchyma/Organ IMPRESSION: Liver stiffness measures 10.1 kPa compatible with F2-F3 (Mild to moderate liver fibrosis) Metavir score. Electronically Signed: Zain Conti MD at 15:18 EDT ,
== END | disposition home or self-care (01) ==
LOC: US 07:50
PROVIDERS: Referring Provider Nurse Practitioner Adult Health; Visit Provider Nurse Practitioner Adult Health
DX: K76.0 Fatty (change of) liver, not elsewhere classified (principal)
CPT/HCPCS: 76981

== ENCOUNTER → 2023-02-28 | Outpatient (CLI) | payer MEDICAID, SELFPAY ==
--- NOTE | 2023-02-28 15:22 | STRESSREP ---
Stress Test Report Treadmill stress test Indication 58-year-old patient with a prior evaluation by stress echocardiogram in May 2021 which was negative Had a history of gait, abdominal aortic aneurysm Symptoms of dyspnea on exertion The baseline EKG showed normal sinus rhythm. Stress protocol: Resting EKG demonstrates. Normal sinus rhythm. Patient exercised according to standard John protocol for stage III total of 9 minutes. Achieving a workload of 10 METS Resting heart rate of 88 bpm, maximal heart rate achieved was 157 bpm equivalent to 95% of the maximal age-predicted heart rate. The resting blood pressure 112/80 mmHg Maximal blood pressure stress is 180 /84 mmHg. Baseline EKG reveals normal sinus rhythm At maximal stress and during recovery no significant ST?T abnormality noted. Patient had no symptoms of chest pain. With maximal stress and during recovery Conclusion: Negative treadmill stress test for ischemia. Based on Barr stress score Based on Barr treadmill score which is 9 Low risk for cardiovascular event. Martha Duff MD,FACC,[facility]
== END | disposition home or self-care (01) ==
LOC: CVS 09:54
PROVIDERS: Referring Provider Nurse Practitioner Family; Visit Provider Nurse Practitioner Family
DX: R06.09 Other forms of dyspnea (principal)
CPT/HCPCS: 93017

== ENCOUNTER → 2023-03-11 | Outpatient (CLI) | payer MEDICAID, SELFPAY ==
--- NOTE | 2023-03-11 15:20 | RAD_ITS ---
INDICATION: OTHER FORMS OF DYSPNEA EXAMINATION/TECHNIQUE: X-RAY - XR Chest 2 Views COMPARISON: 07/10/2021. FINDINGS: LINES/DEVICES: None. LUNGS: No consolidation, edema or effusion. No pneumothorax. MEDIASTINUM AND CARDIOVASCULAR STRUCTURES: Cardiac silhouette not enlarged. Central airways and mediastinal contour are unremarkable. BONES AND SOFT TISSUES: Mild degenerative disease of the spine. RAD/Chest PA and Lateral IMPRESSION: Normal chest x-ray for age. Electronically Signed: Delia Mares, at 20:15 EDT ,
== END | disposition home or self-care (01) ==
LOC: RAD 15:19
PROVIDERS: Referring Provider Nurse Practitioner Family; Visit Provider Nurse Practitioner Family
DX: R06.09 Other forms of dyspnea (principal)
CPT/HCPCS: 71046

== ENCOUNTER → 2023-04-01 | Outpatient (CLI) | payer MEDICAID, SELFPAY ==
--- NOTE | 2023-04-01 07:47 | US_ITS ---
STUDY: ABDOMINAL ULTRASOUND - RIGHT UPPER QUADRANT; ELASTOGRAPHY REASON FOR VISIT: Male, 58 years old. TECHNIQUE: Ultrasound evaluation of the right upper quadrant was performed with real-time and static ibrahim-scale imaging. Point quantification shear wave elastography was performed ([employer]). TECHNICAL QUALITY: Adequate. COMPARISON: Comparison is made with prior study dated September 28, 2022. FINDINGS: Liver: The liver measures 18.1 cm. There is increased echogenicity consistent with fatty infiltration. The bile ducts are within normal limits. There is hepatic color flow. The direction of portal flow is hepatopetal. There is no demonstrated mass lesion. Median liver stiffness measured 6.2 kPa. Gallbladder: The patient is status post cholecystectomy. Common Bile Duct (C.B.D.): The common bile duct measures 2.1 mm. Pancreas: There is normal echogenicity of the visualized pancreas. There is no demonstrated pancreatic mass or cyst. Right Kidney: Normal size of the right kidney. The right kidney measures 12.3 cm x 6.1 cm x 5.5 cm. Normal renal cortex. The right cortex measures 1.7 cm. There is no demonstrated renal mass or cyst. There is no right hydronephrosis. US/ABD Complete w/ Elastography IMPRESSION: 1. Liver stiffness measures 6.2 kPa compatible with F2-F3 (Mild to moderate liver fibrosis) Metavir score. Electronically Signed: Zain Conti MD at 10:05 EDT ,
== END | disposition home or self-care (01) ==
LOC: US 07:44
PROVIDERS: Referring Provider Internal Medicine Gastroenterology; Visit Provider Internal Medicine Gastroenterology
DX: K76.0 Fatty (change of) liver, not elsewhere classified (principal); K22.70 Barrett's esophagus without dysplasia; R19.7 Diarrhea, unspecified
CPT/HCPCS: 76700; 76981

== ENCOUNTER → 2023-04-06 | Outpatient (CLI) | payer MEDICAID, SELFPAY ==
[2023-04-06 11:25] LABS: Absolute Lymphocyte Count 2.15 X10^3/uL (0.83-4.51); Absolute Neutrophil Count 4.6 X10^3/uL (2.0-7.7); Basophil# 0.04 X10^3/uL; Basophil% 0.5 % (0-1); Eosinophil# 0.06 X10^3/uL; Eosinophils% 0.8 % (0-5); Hematocrit 46.5 % (40-54); Hemoglobin 15.7 g/dL (13.0-16.5); Lymphocyte # 2.15 X10^3/ul (0.83-4.51); Mean Corp Hgb Conc 33.8 g/dL (32-36); Mean Corpuscular Hgb 30.3 pg (27.0-32.0); Mean Corpuscular Volume 89.8 fL (80-94); Mean Platelet Vol. 10.3 fl (6.2-12.0); Monocyte# 0.58 X10^3/uL; Monocyte% 7.8 % (0-10); NRBC Flagged by Analyzer 0 % (0-5); Neutrophil # 4.56 X10^3/uL (2.7-7.7); Neutrophil % 61.5 % (47-70); Platelet Count 212 K/mm3 (150-450); RBC Distribution Width CV 12.6 % (11.6-14.6); RBC Distribution Width SD 41.5 fl (35.1-43.9); Red Blood Count 5.18 M/mm3 (4.6-6.2); White Blood Count 7.4 K/mm3 (4.4-11.0)
[2023-04-06 11:43] LABS: AST(SGOT) 42 U/L (15-37); Alanine Aminotransfer ALT/SGPT 111 U/L (16-61); Albumin, Serum 3.6 g/dL (3.2-5.0); Alkaline Phosphatase 69 U/L (45-117); Anion Gap 0 (5-15); BUN 11 mg/dL (7-18); BUN/Creat Ratio 11.4 RATIO (10-20); Calcium,Total 8.6 mg/dL (8.5-10.1); Chloride 105 mmol/L (98-107); Creatinine, Serum 0.96 mg/dL (0.70-1.30); EST Glomerular Filtration Rate 86 mL/min (>60); Est Glom Filt Rate - Afr Amer 104 mL/min (>60); Globulin 3.7 g/dL (2.2-4.2); Glucose 291 mg/dL (74-106); Potassium 4.4 mmol/L (3.5-5.1); Protein, Total 7.3 g/dL (6.4-8.2); Sodium Level 134 mmol/L (136-145)
[2023-04-06 11:48] LABS: Hemoglobin A1c 9.2 % (3.8-5.6)
== END | disposition home or self-care (01) ==
LOC: LAB 10:39
PROVIDERS: Referring Provider Internal Medicine Gastroenterology; Visit Provider Internal Medicine Gastroenterology
DX: K76.0 Fatty (change of) liver, not elsewhere classified (principal)
CPT/HCPCS: 36415; 80053; 83036; 85025

== ENCOUNTER → 2024-01-10 | Outpatient (CLI) | payer MEDICAID, SELFPAY ==
[2024-01-10 17:58] LABS: Absolute Lymphocyte Count 2.35 X10^3/uL (0.83-4.51); Absolute Neutrophil Count 3.9 X10^3/uL (2.0-7.7); Basophil# 0.04 X10^3/uL; Basophil% 0.6 % (0-1); Eosinophil# 0.14 X10^3/uL; Hematocrit 46.1 % (40-54); Hemoglobin 15.8 g/dL (13.0-16.5); Lymphocyte # 2.35 X10^3/ul (0.83-4.51); Lymphocyte % 33.3 % (19-41); Mean Corp Hgb Conc 34.3 g/dL (32-36); Mean Corpuscular Hgb 30.6 pg (27.0-32.0); Mean Corpuscular Volume 89.3 fL (80-94); Mean Platelet Vol. 10.3 fl (6.2-12.0); Monocyte% 8.5 % (0-10); NRBC Flagged by Analyzer 0 % (0-5); Neutrophil % 55.3 % (47-70); Platelet Count 226 K/mm3 (150-450); RBC Distribution Width CV 12.5 % (11.6-14.6); RBC Distribution Width SD 41.3 fl (35.1-43.9); Red Blood Count 5.16 M/mm3 (4.6-6.2); White Blood Count 7.1 K/mm3 (4.4-11.0)
[2024-01-10 18:39] LABS: Hemoglobin A1c 11.8 % (3.8-5.6)
[2024-01-10 19:43] LABS: ALB/GLOB Ratio 0.9 RATIO (0.9-2.4); AST(SGOT) 28 U/L (15-37); Alanine Aminotransfer ALT/SGPT 72 U/L (16-61); Albumin, Serum 3.5 g/dL (3.2-5.0); Alkaline Phosphatase 85 U/L (45-117); Anion Gap 9 (5-15); BUN 22 mg/dL (7-18); BUN/Creat Ratio 17.2 RATIO (10-20); Calcium,Total 9.2 mg/dL (8.5-10.1); Chloride 96 mmol/L (98-107); Creatinine, Serum 1.28 mg/dL (0.70-1.30); EST Glomerular Filtration Rate 62 mL/min (>60); Est Glom Filt Rate - Afr Amer 75 mL/min (>60); Globulin 3.9 g/dL (2.2-4.2); Glucose 568 mg/dL (74-106); Potassium 4.6 mmol/L (3.5-5.1); Protein, Total 7.4 g/dL (6.4-8.2); Sodium Level 130 mmol/L (136-145)
== END | disposition home or self-care (01) ==
LOC: RAD 17:39
PROVIDERS: Referring Provider Surgery; Visit Provider Surgery
DX: E11.65 Type 2 diabetes mellitus with hyperglycemia (principal); Z79.4 Long term (current) use of insulin
CPT/HCPCS: 36415; 80053; 83036; 85025

== ENCOUNTER → 2024-01-23 | Outpatient (CLI) | payer MEDICAID, SELFPAY ==
--- NOTE | 2024-01-23 10:37 | ST.MBS ---
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 Medical History: Carter Aragon is a 58yo male w/ PMHx re: history of hiatal hernia, Cloud's esophagus, GERD (gastroesophageal reflux disease), type 2 diabetes mellitus who is here for a Modified Barium Swallow Study. He was referred by Dr. Harden because of his oropharyngeal dysphagia type symptoms. Mr. Aragon initially complained of heartburn and food getting stuck to Dr. Harden in February 2021. He further participated in upper endoscopy where Dr. Harden documented there was Cloud's esophagus distally over short segment. The Z-line was irregular at 40 cm. Small hiatal hernia noted. Sucralfate 1 g orally twice daily was added to his regimen. Consider possible follow-up upper endoscopy at 3 years. In April 2022, Dr. Wagoner was consulted for his Cloud's esophagus. At that time, the patient was having abdominal pain and watery diarrhea. Because of the diarrhea, it was felt the patient might have gastroparesis, peptic ulcer disease or cholecystitis. There was concern that because of his poorly controlled diabetes that this was aggravating his gastroesophageal reflux disease. Mr. Aragon was seen again seen in July 2022. A review of his extensive laboratory workup was unremarkable. Stool testing for calprotectin and elastase ova and parasites Giardia C. difficile and enteric were all negative with lactoferrin positive and fecal fats elevated. Gastric emptying study was normal. A suspicion of exocrine pancreatic insufficiency was made and the patient was placed on Zenpep pills. He was diagnosed with chronic hepatitis. In November 2022, Dr. Wagoner pursued EGD and colonoscopy. The Z-line was irregular. Some erythema of the gastric body. The colon demonstrated mildly congested mucosa at the rectosigmoid and sigmoid and transverse colon. Patchy area of the terminal ileum was felt to be congested. Pathology on biopsy showed normal duodenum. Mild gastritis. Some moderate chronic reflux esophagitis with no Cloud's identified. Terminal ileum was unremarkable. Random colonic biopsies were normal. H. pylori was negative. Also in November 2022, Mr. Aragon was seen by Deepthi Fernandes. He recanted that he gets lower abdominal pain 20 to 40 minutes after eating and then urgent watery diarrhea. There was no relief with pancreatic enzymes.Elastography was recommended. His elastography showed a liver of 18 cm with liver stiffness noted. Dr. Wagoner felt that the patient's abdominal pain and diarrhea was secondary to exocrine pancreatic insufficiency Mr. Aragon was seen by Dr. Jh Chaudhary in September 2023. At that time, his hemoglobin A1c was 11.9. He is noncompliant with his medications. It appears that that office visit came down to serious issues with compliance and effects on diabetes and hypertension and obesity. He was again seen in follow-up by Dr. Jh Chaudhary on October 07, 2023 reiterating the taking of his medications and need for medication and dietary and exercise compliance. Mr. Aragon was seen by Dr. Harden in December 2023 with continued concerns about difficulties with food swallowing. Sometimes the food will get stuck in his oropharynx. Sometimes the food will go down but then in the retrosternal area inferiorly will cause him discomfort. Therefore, Dr. Harden recommended MBSS. On further discussion per Dr. Harden, it is apparent that he does not seem to be taking any of his medicines. Dentition: WNL Mental Status: WNL Respiratory Status: Oxygenating on Room Air Penetration-Aspiration Scale Penetration-Aspiration Scale: OBJECTIVE ASSESSMENT OF SWALLOW FUNCTION (QUANTITATIVE ? PER TRIAL): PENETRATION / ASPIRATION SCALE (ESCOBAR): 1 = does not enter airway 2 = enters airway/above vocal folds/ejected 3 = enters airway/above vocal folds/not ejected 4 = enters airway/contacts vocal folds/ejected 5 = enters airway/contacts vocal folds/not ejected 6 = enters airway/below vocal folds/ejected 7 = enters airway/below vocal folds/not ejected despite effort 8 = enters airway/below vocal folds/no effort VIDEOFLOROSCOPIC SCALE SCORE (ESCOBAR): Grade I = aspiration of material that has penetrated into the laryngeal vestibule, intact cough reflex Grade II = aspiration < 10 % of the bolus, intact cough reflex Grade III = aspiration of < 10 % of the bolus, reduced cough reflex or aspiration of > 10 % of the bolus, intact cough reflex Grade IV = aspiration of > 10 % of the bolus, reduced cough reflex Penetration-Aspiration Scale Score Thin Liquid via teaspoon: Result: 1= does not enter airway Thin Liquid via small single sip: cup: Result: 1= does not enter airway Thin Liquid via sequential sips: cup: Result: 1= does not enter airway [place] Thick Liquid via small single sip: cup: Result: 1= does not enter airway Honey Thick Liquid via small single sip: cup: Result: 1= does not enter airway Pudding: Result: 1= does not enter airway Cookie: Result: 1= does not enter airway Oral Phase Labial Seal: No Labial Escape Tongue Control During Bolus Hold: Posterior escape of greater than half of bolus Bolus Preparation/Mastication: Timely and efficient chewing and mashing Bolus Transport/Lingual Motion: Brisk tongue motion Oral Residue: Trace residue lining oral structures Pharyngeal Phase Initiation of Pharyngeal Swallow: Bolus head in valleculae Soft Palate Elevation: No bolus between soft palate and pharyngeal wall Laryngeal Elevation: Comp. Superior move thyroid cart w/comp. apprx arytenoid cart-epig pet Anterior Hyoid Excursion: Complete anterior movement Epiglottic Movement: Complete inversion Laryngeal Vestibule Closure at Height of Swallow: Complete; no air/contrast in laryngeal vestibule Pharyngeal Stripping Wave: Present - complete Pharyngoesophageal Segment Opening: Complete distension and complete duration; no obstruction of flow Tongue Base Retraction: No contrast between tongue base and posterior pharyngeal wall Pharyngeal Residue: Complete pharyngeal clearance Esophageal Phase Esophageal Clearance: Esophageal retention Diagnosis/Impression Diagnosis: Esophageal dysphagia R13.14 Impression: Oral phase primarily marked by... - adequate mastication, bolus cohesion and timely AP transit observed w/ all consistencies. - premature bolus loss to the vallecula observed w/ thin, nectar thick, honey thick, pudding thick and cookie observed. - trace oral residue seen spilling into the vallecula after the swallow. Mr. Aragon independently swallowed to clear pharyngeal residues. Pharyngeal phase primarily marked by... - adequate airway closure w/ no laryngeal penetration or aspiration observed during the study. Minimal esophageal retention that cleared w/ extra time observed w/ pudding and cookie trials. Cricopharyngeal hypertrophy located at C5/C6. Recommendations Diet: Regular Textures and Thin Liquids Compensatory Strategies: Multiple Swallows, Alternate bites/solids and sips/liquids, Sitting upright and Remain sitting upright for 30 minutes after PO intake (ADMINISTRATIVE SUPPORT MANAGER educated pt. on GERD precautions.) Recommend Repeat Modified Barium Swallow: No Need for Skilled Speech Therapy Services: No Recommended Referrals: GI Consult Education Completed: 1. Described result of evaluation. and 2. Pt understands evaluation & agrees with goals and treatment plan. Status Active ST Patient: Active Contact Information [facility]:: Tracy Dunaway M.A. [facility]-ADMINISTRATIVE SUPPORT MANAGER Speech-Language Pathologist [facility] [address] [place] [address] [email or web address] [phone]
== END | disposition home or self-care (01) ==
LOC: RAD 08:42
PROVIDERS: Referring Provider Surgery; Visit Provider Surgery
DX: R13.19 Other dysphagia (principal); K21.00 Gastro-esophageal reflux disease with esophagitis, without bleeding; K22.70 Barrett's esophagus without dysplasia
CPT/HCPCS: 74230; 92611

== ENCOUNTER 2024-08-28 05:13 | Day surgery (SDC) | payer MEDICAID, OTHER, SELFPAY ==
--- NOTE | 2024-08-26 09:58 | PAT.ANESEVAL ---
Pre-Assessment Diagnosis/Proposed Procedure Planned Operative Procedure(s): EGD, CSCOPE Anesthesia History Anesthesia History - community program assistant: Anesthesia History - community program assistant Hx Hospitalization No 08/26/24 09:17 Any Problems With Anesthesia No 08/26/24 09:17 Cholinesterase deficiency No 08/26/24 09:17 You/Your Family Experience No 08/26/24 09:17 fever (hyperthermia) with Relationship Recent Exposure to Contagious No 12/04/22 05:46 Disease Does patient have nerve No 08/26/24 09:17 stimulator Patient instructed to have device shut off --Does patient have Pacemaker or ICD? When Was Last Pacemaker Check QUESTION #4 FULL TEXT: You/Your Family Experience fever (hyperthermia) with Anesthesia Last Oral Intake Last Oral intake: Last Oral Intake NPO since Meds taken in AM with sips of water? Meds patient instructed to take am of surgery PONV PONV - community program assistant: PONV - community program assistant Female No 08/26/24 09:17 HX of Motion Sickness No 08/26/24 09:17 HX of N/V After Surgery No 08/26/24 09:17 Non-Smoker Yes 08/26/24 09:17 Duration of Surgery greater No 08/26/24 09:17 than 60 minutes Number of Risk Factors 1 08/26/24 09:17 PONV Score Low Risk 08/26/24 09:17 Height & Weight Height & Weight: Anesthesia: Height & Weight Height 5 ft 10 in 01/24/24 13:16 Respiratory Assessment Respiratory Assessment - community program assistant: Respiratory Tract Infection Hx - community program assistant Hx Respiratory Tract Infection Yes: JUST GETTING OVER COUGH 08/26/24 09:17 08/26 STOP Sleep Apnea STOP Sleep Apnea - community program assistant: STOP Sleep Apnea - community program assistant Hx Hypertension No 08/26/24 09:17 Hx Sleep Apnea No 08/26/24 09:17 CPAP BIPAP Do you snore loudly (louder No 08/26/24 09:17 than talking or can be heard Do you often feel tired/ No 08/26/24 09:17 fatigued/ sleepy during daytime? Has anyone observed you stop No 08/26/24 09:17 breathing during sleep? STOP Results Negative 08/26/24 09:17 QUESTION #5 FULL TEXT : Do you snore loudly (louder than talking or can be heard through closed doors)? Tobacco Use History Tobacco Use History - community program assistant: Tobacco Use History - community program assistant Tobacco Use Smoking Status Never smoker 08/26/24 09:17 Hx Tobacco Use No 08/26/24 09:17 Years Smoking Packs Smoked per Day Smoking Cessation Date was within the last 15 years Hx Smoking Cessation Date Hx Smoking Cessation Counseling Hematologic Medial History Hematologic Hx - community program assistant: Hematologic Medical Hx - machine bander and cellophaner Hx of Blood Transfusion No 08/26/24 09:17 Hx of Transfusion in last 3 No 08/26/24 09:17 Months Date of Last Transfusion (if within last 3 months) Ever experience any problems No 08/26/24 09:17 with transfusion(s)? Specify any problems Hx of Preganancy in last 3 N/A 08/26/24 09:17 Months Nurse Filling Out Transfusion NBUCHER 08/26/24 09:17 & Questions: Date: 08/26/24 08/26/24 09:17 Time: 09:19 08/26/24 09:17 Patient unable to answer at this time (ie. confused, unrespo /Reproduction History /Reproductive History - community program assistant: /Reproductive Hx- community program assistant Hx Now Gestational Age (in weeks): EDC: Hx Hx Para Hx Section SAB No 11/29/22 13:28 [facility] Medical History (Updated 08/26/24 @ 09:24 by Lita Nieves) Chest pain Shortness of breath on exertion History of hiatal hernia Barretts esophagus Fatty liver Insulin dependent diabetes mellitus Syncope History of echocardiogram Difficulty swallowing Abdominal pain Diarrhea Depression Restless legs Dietary restriction Gastric reflux Non-smoker Leg cramps History of stress test Hypertension Epigastric abdominal pain Altered bowel function Generalized abdominal pain Abdominal aortic aneurysm without rupture Prostatitis UTI (urinary tract infection) GERD (gastroesophageal reflux disease) Type 2 diabetes mellitus Home Medications ?Medication ?Instructions ?Recorded ?Last Taken ?Type pen needle, diabetic 32 gauge x #100 ea 07/19/22 Unknown Rx (BD Ultra-Fine Perla Pen Needle) omeprazole 20 mg capsule,delayed 20 mg PO BID #60 caps 03/07/23 Unknown Rx release blood-glucose sensor (FreeStyle #2 ea 10/04/23 Unknown Rx Heron 3 Sensor device) cinnamon bark 500 mg capsule 2,000 mg PO BID 01/10/24 Unknown History Gluco Control 1 tab PO DAILY 01/24/24 Unknown History apple cider vinegar 600 mg capsule 600 mg PO DAILY 01/24/24 Unknown History glipizide 10 mg tablet 10 mg PO DAILY #90 tabs 02/18/24 Unknown Rx metformin 500 mg tablet 1,000 mg (2 x 500 mg) PO BID dm 05/15/24 Unknown Rx #180 tabs insulin glargine 100 unit/mL (3 30 unit subcut QDAY 07/23/24 Unknown History mL) subcutaneous pen (Lantus Solostar U-100 Insulin) tirzepatide 2.5 mg/0.5 mL 2.5 mg subcut TH 07/23/24 Unknown History subcutaneous pen injector (Mounjaro) Allergy/AdvReac Type Severity Reaction Status Date / Time No Known Allergies Allergy Verified 08/26/24 09:14 Family History Grandmother Breast cancer Father Cancer Pancreatic cancer Brother Diabetes Mother Heart disease Surgical History History of esophagogastroduodenoscopy History of esophagogastroduodenoscopy (EGD) Hx of colonoscopy S/P bilateral inguinal hernia repair History of nasal surgery History of laparoscopic cholecystectomy History of right knee surgery Social History Smoking Status: Never smoker alcohol intake: never substance use type: does not use Audit: Pertinent Findings Pertinent Findings EKG Perinent findings: 11/18/2020 normal sinus rhythm 91 bpm Stress test pertinent findings: 02/28/2023 negative Recommendation Anesthesia Recommendation Anesthesia recommendation: OPTIMIZED for anesthesia
[2024-08-28] VITALS (9 sets, daily range): BP systolic 78–124; BP diastolic 51–85; PULSE 71–77; RESP 14–18; TEMP 36–37; O2SAT 95–100; BMI 29.9
--- NOTE | 2024-08-28 | IMM_PTH ---
PATIENT: MARY LARA LOC: EN U#:[id number] AGE/SX: 59/M ROOM: RE08/28/[address]: Dr. Matthew Wagoner DO : 1965 BED: DIS: 08/28/2024 SPEC #: [id number] RECD: 08/31/24 12:22 STATUS: DAR REAliza #: [id number] ANDREW: 08/28/24 00:[address]: Matthew Wagoner DEPT: IMMUNOHISTOCHEMISTRY RECD BY: Boo León ENTERED: 08/31/24 12:22 SP TYPE: IMMUNO OTHR DR: Galdino Goldsmith, VOICE NETWORK ENGINEER-C Tissues: B - COLON BIOPSY Procedures: CD3 (initial) PHYSICIAN & INSTITUTION [place] [id number] SPECIMEN INFORMATION: Tissue Source: B- Random colon biopsy Clinical Info: GERD, diarrhea, dysphagia, Cloud's abdominal pain Specimen Number: [id number] CPT code: 15098 METHODOLOGY: Deparaffinized sections of prefer/formalin-fixed tissue or PAP/DQ stained slides are incubated with monoclonal/polyclonal antibodies/oligonucleotide probes. Localization is made via biotin free immunoperoxidase method. Appropriate controls are performed and reacted as expected. Results on target cell population are indicated in the following table: RESULTS: ANTIBODY / CLONE RESULT Block B 1 CD3 (PS1) positive in lymphoid nodules and foci of chronic inflammation. No significant increase in intraepithelial lymphocytes. These tests were developed and their performance characteristics determined by [facility]. They may not have been cleared or approved by the [place]. Food and Drug Administration. The FDA has determined that such clearance or approval is not necessary. The above immunohistochemical/dualISH markers are ordered and reviewed by the Pathologist. INTERPRETATION: B. Colon, random biopsy: Non-specific chronic inflammation and lymphoid nodules. 09/01/2024
[2024-08-28 06:11] LABS: Bedside Glucose 195 mg/dL (74-106)
--- NOTE | 2024-08-28 06:30 | COLBX_PTH ---
PATIENT: MARY LARA LOC: EN U#:[id number] AGE/SX: 59/M ROOM: RE08/28/[address]: Dr. Matthew Wagoner DO : 1965 BED: DIS: 08/28/2024 SPEC #: [id number] RECD: 08/28/24 10:34 STATUS: DAR CASASAliza #: [id number] ANDREW: 08/28/24 06:[address]: Matthew Wagoner DEPT: SURGICAL PATHOLOGY RECD BY: Art Gonzales ENTERED: 08/28/24 12:40 SP TYPE: COLON BX OTHR DR: Galdino Goldsmith, REAL ESTATE OFFICE SUPERVISOR-C Tissues: A - Esophagus, NOS B - COLON BIOPSY Procedures: Surgery Specimen Level IV HEADER OPERATION: Colonoscopy, EGD and biopsy PRE-OP DIAGNOSIS: GERD, diarrhea, dysphagia, Cloud's, abdominal pain TISSUE SUBMITTED: A- Distal esophagus biopsy, B- Random colonic biopsies MICROSCOPIC DIAGNOSIS A. Distal esophagus, biopsy: Squamous and glandular mucosa showing focal chronic inflammation. Squamous mucosa showing changes suggestive of mild acute reflux esophagitis. Glandular mucosa showing focal intestinal metaplasia / Cloud's esophagus. Negative for dysplasia. Negative for eosinophilic esophagitis. See comment. B. Colon, random biopsy: Fragments of colonic mucosa with lymphoid nodules and focal non-specific chronic inflammation. See comment. 08/31/2024 COMMENT A. Alcian blue/PAS stain with matched control is used in the evaluation of the specimen. B. Immunohistochemistry ([id number]) supports the above diagnosis. MICROSCOPIC DESCRIPTION Slides are reviewed. GROSS DESCRIPTION A. Received in fixative is one container labeled with the patient's name and designated Distal esophagus biopsy. The specimen consists of multiple irregular fragments of light franks soft tissue that in aggregate measure 1 x 0.5 x 0.1 cm. The specimen is totally submitted in one cassette. B. Received in fixative is one container labeled with the patient's name and designated Random colonic biopsy. The specimen consists of multiple irregular fragments of light franks soft tissue that in aggregate measure 2.1 x 0.7 x 0.2 cm. The specimen is totally submitted in one cassette. 08/28/2024 TC:3 CPT:90020t5,36379
--- NOTE | 2024-08-28 06:39 | PCM.PRE.AN2 ---
ASA Classification* ASA Classification ASA Classification: 2 Assessment & Plan Anesthesia* Anesthesia Assessment Anesthesia Assessment: Discussed sedation and/or anesthesia options, risks, benefits, and alternatives with patient/parents/legal guardian/POA. Questions invited. The patient/parents/legal guardian/POA seems to understand and agrees to proceed with anesthesia plan. Reviewed the physical assessment, medical history, allergy history and patient home medications list prior to surgery/procedure/anesthetic and documented any changes. Performed airway and anesthesia risk assessments. Anesthesia Type Anesthesia Type: MAC History Source History Obtained from:: Patient and Chart Anesthesia Focused Assessment* Temperature: 96.8 F Pulse Rate: 71 Blood Pressure: 124/85 Respiratory Rate: 16 Pulse Ox: 98 Oxygen Delivery Method: Room Air Airway Assessment Mouth opens: >3 cm Mallampati Score: IV Teeth Condition: Intact Neck Range of motion (ROM): Limited ROM (Slight decrease in extension) Focused Labs Anesthesia Preop lab: CBC WBC 7.1 K/mm3 (4.4-11.0) 01/10/24 17:40 01/10/24 RBC 5.16 M/mm3 (4.6-6.2) 01/10/24 17:40 01/10/24 Hgb 15.8 g/dL (13.0-16.5) 01/10/24 17:40 01/10/24 Hct 46.1 % (40-54) 01/10/24 17:40 01/10/24 Plt Count 226 K/mm3 (150-450) 01/10/24 17:40 01/10/24 CHEMISTRY Potassium 4.6 mmol/L (3.5-5.1) 01/10/24 17:40 01/10/24 Sodium 130 mmol/L (136-145) L 01/10/24 17:40 01/10/24 BUN 22 mg/dL (7-18) H 01/10/24 17:40 01/10/24 Creatinine 1.28 mg/dL (0.70-1.30) 01/10/24 17:40 01/10/24 Glucose 568 mg/dL (74-106) H* 01/10/24 17:40 01/10/24 POC Glucose 195 mg/dL (74-106) H 08/28/24 05:49 08/28/24 TSH 1.13 uIU/mL (0.358-3.74) 05/10/22 10:08 05/10/22 COAG PT 14.7 SECONDS (11.7-14.9) 11/12/17 03:56 11/12/17 Pre-Assessment Diagnosis/Proposed Procedure Planned Operative Procedure(s): EGD, CSCOPE Anesthesia History Anesthesia History - washateria attendant: Anesthesia History - washateria attendant Hx Hospitalization No 08/26/24 09:17 Any Problems With Anesthesia No 08/26/24 09:17 Cholinesterase deficiency No 08/26/24 09:17 You/Your Family Experience No 08/26/24 09:17 fever (hyperthermia) with Relationship Recent Exposure to Contagious No 08/28/24 05:58 Disease Does patient have nerve No 08/26/24 09:17 stimulator Patient instructed to have device shut off --Does patient have Pacemaker No 08/28/24 06:00 or ICD? When Was Last Pacemaker Check QUESTION #4 FULL TEXT: You/Your Family Experience fever (hyperthermia) with Anesthesia Last Oral Intake Last Oral intake: Last Oral Intake NPO since 03:00 08/28/24 06:00 Meds taken in AM with sips of water? Meds patient instructed to take am of surgery Any additional information?: Yes NPO since: 03:00 (Patient took his last prep at 3 AM.) Meds taken in AM with sips of water?: No PONV PONV - washateria attendant: PONV - washateria attendant Female No 08/26/24 09:17 HX of Motion Sickness No 08/26/24 09:17 HX of N/V After Surgery No 08/26/24 09:17 Non-Smoker Yes 08/26/24 09:17 Duration of Surgery greater No 08/26/24 09:17 than 60 minutes Number of Risk Factors 1 08/26/24 09:17 PONV Score Low Risk 08/26/24 09:17 Height & Weight Height & Weight: Anesthesia: Height & Weight Height 5 ft 10 in 08/28/24 06:00 Weight: 94.801 kg 08/28/24 06:00 Body Mass Index (BMI) 29.9 08/28/24 06:00 Respiratory Assessment Respiratory Assessment - washateria attendant: Respiratory Tract Infection Hx - washateria attendant Hx Respiratory Tract Infection Yes: JUST GETTING OVER COUGH 08/26/24 09:17 2 STOP Sleep Apnea STOP Sleep Apnea - washateria attendant: STOP Sleep Apnea - washateria attendant Hx Hypertension No 08/26/24 09:17 Hx Sleep Apnea No 08/26/24 09:17 CPAP BIPAP Do you snore loudly (louder No 08/26/24 09:17 than talking or can be heard Do you often feel tired/ No 08/26/24 09:17 fatigued/ sleepy during daytime? Has anyone observed you stop No 08/26/24 09:17 breathing during sleep? STOP Results Negative 08/26/24 09:17 QUESTION #5 FULL TEXT : Do you snore loudly (louder than talking or can be heard through closed doors)? Tobacco Use History Tobacco Use History - washateria attendant: Tobacco Use History - washateria attendant Tobacco Use Smoking Status Never smoker 08/26/24 09:17 Hx Tobacco Use No 08/26/24 09:17 Years Smoking Packs Smoked per Day Smoking Cessation Date was within the last 15 years Hx Smoking Cessation Date Hx Smoking Cessation Counseling Hematologic Medial History Hematologic Hx - washateria attendant: Hematologic Medical Hx - fighter pilot Hx of Blood Transfusion No 08/26/24 09:17 Hx of Transfusion in last 3 No 08/26/24 09:17 Months Date of Last Transfusion (if within last 3 months) Ever experience any problems No 08/26/24 09:17 with transfusion(s)? Specify any problems Hx of Preganancy in last 3 N/A 08/26/24 09:17 Months Nurse Filling Out Transfusion NBUCHER 08/26/24 09:17 & Questions: Date: 08/26/24 08/26/24 09:17 Time: 09:19 08/26/24 09:17 Patient unable to answer at this time (ie. confused, unrespo /Reproduction History /Reproductive History - washateria attendant: /Reproductive Hx- washateria attendant Hx Now Gestational Age (in weeks): EDC: Hx Hx Para Hx Section SAB No 11/29/22 13:28 PFSH Medical History Chest pain Shortness of breath on exertion History of hiatal hernia Barretts esophagus Fatty liver Insulin dependent diabetes mellitus Syncope History of echocardiogram Difficulty swallowing Abdominal pain Diarrhea Depression Restless legs Dietary restriction Gastric reflux Non-smoker Leg cramps History of stress test Hypertension Epigastric abdominal pain Altered bowel function Generalized abdominal pain Abdominal aortic aneurysm without rupture Prostatitis UTI (urinary tract infection) GERD (gastroesophageal reflux disease) Type 2 diabetes mellitus Home Medications ?Medication ?Instructions ?Recorded ?Last Taken ?Type pen needle, diabetic 32 gauge x #100 ea 07/19/22 Unknown Rx 5/32 (BD Ultra-Fine Perla Pen Needle) omeprazole 20 mg capsule,delayed 20 mg PO BID #60 caps 03/07/23 08/27/24 Rx release blood-glucose sensor (FreeStyle #2 ea 10/04/23 Unknown Rx Heron 3 Sensor device) cinnamon bark 500 mg capsule 2,000 mg PO BID 01/10/24 08/27/24 History Gluco Control 1 tab PO DAILY 01/24/24 08/27/24 History apple cider vinegar 600 mg capsule 600 mg PO DAILY 01/24/24 08/27/24 History glipizide 10 mg tablet 10 mg PO DAILY #90 tabs 02/18/24 08/27/24 Rx metformin 500 mg tablet 1,000 mg (2 x 500 mg) PO BID dm 05/15/24 08/27/24 Rx #180 tabs insulin glargine 100 unit/mL (3 30 unit subcut QDAY 07/23/24 08/27/24 History mL) subcutaneous pen (Lantus Solostar U-100 Insulin) tirzepatide 2.5 mg/0.5 mL 2.5 mg subcut TH 07/23/24 08/21/24 History subcutaneous pen injector (Mounjaro) Allergy/AdvReac Type Severity Reaction Status Date / Time No Known Allergies Allergy Verified 08/28/24 05:50 Family History Grandmother Breast cancer Father Cancer Pancreatic cancer Brother Diabetes Mother Heart disease Surgical History History of esophagogastroduodenoscopy History of esophagogastroduodenoscopy (EGD) Hx of colonoscopy S/P bilateral inguinal hernia repair History of nasal surgery History of laparoscopic cholecystectomy History of right knee surgery Social History Smoking Status: Never smoker alcohol intake: never substance use type: does not use Review of Systems (Anesthesia) ROS Narrative System reviewed and no additional complaints, except as documented.
--- NOTE | 2024-08-28 06:58 | PCM.HP.STD ---
HPI - General General Date of Admission: 08/28/24 Date of Service: 08/28/24 Chief Complaint: Cloud's, GERD, abdominal pain and diarrhea HPI Narrative MARY LARA, is a 59 M who presents for EGD and colonoscopy regarding Cloud's esophagus and diarrhea family history of colon cancer. PMH DMII? FH paternal grandfather with colon cancer, father pancreatic cancer Prior workup: EGD 02.14.21 [facility] Cloud?s esophagus, biopsy confirmed; irregular zline; small hiatal hernia; erythematous mucosa of antrum, gastritis. H.Pylori negative. ? CT abd/pel 07.10.21 for umbilical hernia normal liver; distal colonic diverticulosis. ? Biochemical AST H43, total bilirubin H1.40 *BGI established 05.10. abdominal pain and watery diarrhea with mucus occurring multiple times a day with urgency causing incontinence. ? Biochemical hepatitis, SERVANDO, ANCA, AFP, AMA, ASM, ceruloplasmin, GAME, Vit D 1,25, celiac, TSH, T3, Vit D25, CRP, LDH, ammonia, ferritin, CMP, ESR, CBCwithout pertinent abnormality. ASTH38/ALT H81, A1c H10.1 Stool calprotectin, elastase, ova/parasite, giardia, C.Difficile, enteric pathogens WNL? Lactoferrin +, fecal fats elevated ? GET 11.8.22 WNL with time at 25.39 minutes (12-56). OV 08.03.22 doing better than previously. Postprandial lower abdominal pain and loose stools continue without food trigger. Started cinnamon pills three months prior and feels these have been helpful with this and glucose control. Start creon ? EGD and colonoscopy 12.04.22 EGD irregular Zline; gastritis; duodenitis. No path changes ? Colonoscopy contested colonic mucosa and TI.? No path changes OV 12.07.22 include Zenpep with snacks, Start colestipol ? US and elastography 3.17.23/6.16.23 hepatic measurement 18cm, stiffness 10.1kPa. ? 3.14.23 FIB 4 1.39 OV 8.28.23 if he eats a lot of food he gets and upper esophageal fullness requiring liquids; pays attention to bite sizes and chew well. He continues with Zenpep; colestipol has stopped and loose stools are under control Endocrinology established with A1c 11; continue metformin, glimepiride, farxiga, increase 50/50 to 50units TID, start Mounjaro. Has been changing his diet. OV 1.9.25 pt reports that he continues to have difficulty swallowing food and that it is uncomfortable when swallowing liquids. Pt reports he feels like his food is piling up in his chest. Pt reports feeling constipated, but once he is able to go states that stool is watery. Continues with Omeprazole 20mg BID. [facility] Medical History Chest pain Shortness of breath on exertion History of hiatal hernia Barretts esophagus Fatty liver Insulin dependent diabetes mellitus Syncope History of echocardiogram Difficulty swallowing Abdominal pain Diarrhea Depression Restless legs Dietary restriction Gastric reflux Non-smoker Leg cramps History of stress test Hypertension Epigastric abdominal pain Altered bowel function Generalized abdominal pain Abdominal aortic aneurysm without rupture Prostatitis UTI (urinary tract infection) GERD (gastroesophageal reflux disease) Type 2 diabetes mellitus Home Medications ?Medication ?Instructions ?Recorded ?Last Taken ?Type pen needle, diabetic 32 gauge x #100 ea 07/19/22 Unknown Rx (BD Ultra-Fine Perla Pen Needle) omeprazole 20 mg capsule,delayed 20 mg PO BID #60 caps 03/07/23 08/27/24 Rx release blood-glucose sensor (FreeStyle #2 ea 10/04/23 Unknown Rx Heron 3 Sensor device) cinnamon bark 500 mg capsule 2,000 mg PO BID 01/10/24 08/27/24 History Gluco Control 1 tab PO DAILY 01/24/24 08/27/24 History apple cider vinegar 600 mg capsule 600 mg PO DAILY 01/24/24 08/27/24 History glipizide 10 mg tablet 10 mg PO DAILY #90 tabs 02/18/24 08/27/24 Rx metformin 500 mg tablet 1,000 mg (2 x 500 mg) PO BID dm 05/15/24 08/27/24 Rx #180 tabs insulin glargine 100 unit/mL (3 30 unit subcut QDAY 07/23/24 08/27/24 History mL) subcutaneous pen (Lantus Solostar U-100 Insulin) tirzepatide 2.5 mg/0.5 mL 2.5 mg subcut TH 07/23/24 08/21/24 History subcutaneous pen injector (Mounjaro) Allergy/AdvReac Type Severity Reaction Status Date / Time No Known Allergies Allergy Verified 08/28/24 05:50 Family History Grandmother Breast cancer Father Cancer Pancreatic cancer Brother Diabetes Mother Heart disease Surgical History History of esophagogastroduodenoscopy History of esophagogastroduodenoscopy (EGD) Hx of colonoscopy S/P bilateral inguinal hernia repair History of nasal surgery History of laparoscopic cholecystectomy History of right knee surgery Social History Smoking Status: Never smoker alcohol intake: never substance use type: does not use ROS Constitutional Constitutional: Denies fatigue, fever(s), poor appetite, weight gain or weight loss Gastrointestinal Gastrointestinal: Denies belching, bloating, change in bowel habits, change in stool character, chewing difficulty, coffee ground emesis, constipation, cramping, diarrhea, dyspepsia, dysphagia, early satiety, excessive flatus, fecal incontinence, heartburn, hematemesis, hematochezia, hemorrhoids, loose stools, melena, nausea, odynophagia, rectal bleeding, tenesmus, vomiting or weight changes Vital Signs Vital Signs Vital Signs: 08/28/24 05:58 08/28/24 06:00 08/28/24 06:45 Temperature 96.8 F L 96.8 F L Temperature Source Temporal Pulse Rate 71 71 Respiratory Rate 16 16 Respiratory Pattern Normal Blood Pressure 124/85 H 124/85 H Blood Pressure Mean 98 Blood Pressure Source Monitor Blood Pressure Position Semi-Fowlers Blood Pressure Location Left Arm Pulse Ox 98 98 Oxygen Delivery Method Room Air Room Air Weight Weight: 209 lb Body Mass Index (BMI) 29.9 Physical Exam Const alert, oriented x3, no apparent distress and healthy appearing General Appearance: cooperative GI normal to inspection, nondistended, normoactive bowel sounds, soft to palpation, non-tender and non-distended Percussion: normal to percussion Rectal Exam: deferred Results Lab / Micro Data Labs: Laboratory Results - last 24 hr 08/28/24 05:49: POC Glucose 195 H Assessment & Plan Assessment/Plan (1) Esophageal dysphagia: (2) Diarrhea: PLAN: MARY LARA, is a 59 M who presents to the office today for follow up. PMH DMII? FH paternal grandfather with colon cancer, father pancreatic cancer Prior workup: EGD 8 [facility] Cloud?s esophagus, biopsy confirmed; irregular zline; small hiatal hernia; erythematous mucosa of antrum, gastritis. H.Pylori negative. ? CT abd/pel 07.10.21 for umbilical hernia normal liver; distal colonic diverticulosis. ? Biochemical AST H43, total bilirubin H1.40 *BGI established 1027.22 abdominal pain and watery diarrhea with mucus occurring multiple times a day with urgency causing incontinence. ? Biochemical hepatitis, SERVANDO, ANCA, AFP, AMA, ASM, ceruloplasmin, GAME, Vit D 1,25, celiac, TSH, T3, Vit D25, CRP, LDH, ammonia, ferritin, CMP, ESR, CBCwithout pertinent abnormality. ASTH38/ALT H81, A1c H10.1 Stool calprotectin, elastase, ova/parasite, giardia, C.Difficile, enteric pathogens WNL? Lactoferrin +, fecal fats elevated ? GET 11.8.22 WNL with time at 25.39 minutes (12-56). OV 1.20. doing better than previously. Postprandial lower abdominal pain and loose stools continue without food trigger. Started cinnamon pills three months prior and feels these have been helpful with this and glucose control. Start creon ? EGD and colonoscopy 12.04.22 EGD irregular Zline; gastritis; duodenitis. No path changes ? Colonoscopy contested colonic mucosa and TI.? No path changes OV 12.07.22 include Zenpep with snacks, Start colestipol ? US and elastography 09.28.22/12.28.22 hepatic measurement 18cm, stiffness 10.1kPa. ? 09.25.22 FIB 4 1.39 OV 8. if he eats a lot of food he gets and upper esophageal fullness requiring liquids; pays attention to bite sizes and chew well. He continues with Zenpep; colestipol has stopped and loose stools are under control Endocrinology established with A1c 11; continue metformin, glimepiride, farxiga, increase 50/50 to 50units TID, start Mounjaro. Has been changing his diet. OV 1.9.25 pt reports that he continues to have difficulty swallowing food and that it is uncomfortable when swallowing liquids. Pt reports he feels like his food is piling up in his chest. Pt reports feeling constipated, but once he is able to go states that stool is watery. Continues with Omeprazole 20mg BID. ROS Const Constitutional: Positive for weight change (weight loss); No fatigue or fever(s) ENT ENT: Positive for difficulty swallowing Gastro GI: Positive for abdominal pain, bloating, change in bowel habits, difficulty swallowing and excessive flatus; No belching, change in stool character, coffee ground emesis, constipation, cramping, diarrhea, heartburn, feeling full early, incontinent of stools, Vomiting blood/hematemesis, Blood in stool, loose stools, Black,tarry stools, nausea/dyspepsia, pain with swallowing, vomiting or other Musc Musculoskeletal: No joint pain Skin Skin: No yellowing of the eye or itchy eyes Psych Psychiatric: No anxiety and No depression Endo Endocrine: Positive for weight change (weight loss); No fatigue Aller/Imm Allergy/Immunologic: No itchy eyes Sal/Lymp Hematologic/Lymphatic: No easy bleeding or easy bruising Assessment and Plan Assessment and Plan (1) Fatty liver: Status: Chronic Plan: Fibroscan - 10.5kPa. REcommending Ursodiol, vitamin e and strict blood sugar control (2) Cloud's esophagus determined by biopsy: Status: Chronic Plan: He is known to have Cloud's esophagus. He will need to undergo an repeat upper endoscopy on in approximately next 3 months. (3) Diarrhea: Status: Chronic Plan: Differential diagnosis for his diarrhea does include disease, diabetic diarrhea, medication induced diarrhea, microscopic colitis, collagenous colitis. Biochemical testing and stool testing to make sure there is no infectious component to his diarrhea. I think he is most likely having abdominal pain and exocrine pancreatic insufficiency. We will put him on Zenpep 2 pills with each meal at a 40,000/pill dosage (4) Hepatitis: Status: Chronic (5) Epigastric abdominal pain: Status: Acute Plan: The differential diagnosis for his epigastric pain does include gastroparesis, peptic ulcer disease. He has not shown any signs of acute or chronic cholecystitis. We will hold off on a gastric emptying study to evaluate the motility of the stomach until we see the effect of the pancreatic enzymes. (6) GERD (gastroesophageal reflux disease): Status: Chronic Qualifiers: Esophagitis presence: with esophagitis Esophagitis bleeding: without hemorrhage Qualified Code(s): K21.00 - Gastro-esophageal reflux disease with esophagitis, without bleeding Plan: His gastroesophageal reflux is likely uncontrolled due to poorly controlled diabetes mellitus. I will not make any changes in his PPI therapy. 58-year-old gentleman presents to discuss GI issues. He was having heartburn symptoms at that time. He was also complaining of food getting stuck and needing to be washed down. I had helped him with on February 14, 2021 and upper endoscopy. I felt there was Cloud's esophagus distally over short segment. The Z-line was irregular at 40 cm. Small hiatal hernia noted. Sucralfate 1 g orally twice daily was added to his regimen. Consider possible follow-up upper endoscopy at 3 years. In the meantime however on May 10, 2022 he was seen by myself in gastroenterology in consultation for his Cloud's esophagus. The patient at that time was having abdominal pain and watery diarrhea. It was his note that he had a paternal grandfather who had colon cancer and her father had pancreatic cancer. It was commented upon that the patient had a CT abdomen pelvis July 10, 2021 for an umbilical hernia finding normal liver and distal colonic diverticulosis. Because of the diarrhea was felt the patient might have gastroparesis or peptic ulcer disease or cholecystitis. There was concern that because of his poorly controlled diabetes that this was aggravating his gastroesophageal reflux disease. The patient was again seen on August 03, 2022. A review of his extensive laboratory workup was unremarkable. Stool testing for calprotectin and elastase ova and parasites Giardia C. difficile and enteric were all negative with lactoferrin positive and fecal fats elevated. Gastric emptying study was normal. A suspicion of exocrine pancreatic insufficiency was made and the patient was placed on Zenpep pills. He was diagnosed with chronic hepatitis. On December 04, 2022 I performed an EGD and colonoscopy. The Z-line was irregular. Some erythema of the gastric body. The colon demonstrated mildly congested mucosa at the rectosigmoid and sigmoid and transverse colon. Patchy area of the terminal ileum was felt to be congested. Pathology on biopsy showed normal duodenum. Mild gastritis. Some moderate chronic reflux esophagitis with no Cloud's identified. Terminal ileum was unremarkable. Random colonic biopsies were normal. H. pylori was negative The patient then was seen by Deepthi Aomr on December 07, 2022. He recanted that he gets lower abdominal pain 20 to 40 minutes after eating and then urgent watery diarrhea. There was no relief with pancreatic enzymes.Elastography was recommended. His elastography showed a liver of 18 cm with liver stiffness noted. Dr. Castro Friend felt that the patient's abdominal pain and diarrhea was secondary to exocrine pancreatic insufficiency He was seen by Dr. Jh Chaudhary October 04, 2023. At that time his hemoglobin A1c was 11.9. He is noncompliant with his medications. It appears that that office visit came down to serious issues with compliance and effects on diabetes and hypertension and obesity.. He was again seen in follow-up by Dr. Jh Chaudhary on October 07, 2023 reiterating the taking of his medications and need for medication and dietary and exercise compliance His most recent recent imaging was April 01, 2023 which was the abdominal ultrasound with elastography. There is evidence of previous cholecystectomy and actually I had assisted him with that He presents today with concerns about difficulties with food swallowing. Sometimes the food will get stuck in his oropharynx. Sometimes the food will go down but then in the retrosternal area inferiorly will cause him discomfort. Looking back it is evident that I had ordered a manometry test on him March 2021. That was felt to be normal. Was thinking about offering him a laparoscopic toupet procedure but was hoping that he would lose a slight bit of weight before his proceeding. It is of note now that he works a vigorous lifestyle. 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 On further discussion today it is apparent that he does not seem to be taking any of his medicines. He claims that he ran out. He is not checking his blood sugars. He states that his diet has improved. Previously when we saw him weighted return 28 pounds and today he weighs 218 pounds. He states that insurance has been difficult in providing him with the medications and equipment that he needs. He does not have a glucose monitor. He states that he was notified though that pharmacy may now have equipment that he needs to resume checking his glucoses. Recommend to switch him to pantoprazole 40 mg p.o. twice daily for 12 weeks and then switch him to once a day.
--- NOTE | 2024-08-28 07:27 | OP.CCLET_ITS ---
08/28/2024 Galdino Goldsmith [facility], Consulting Practice Director-c Re : Upper GI endoscopy procedure for Carter Aragon Dear Rupal This procedure was performed on Wednesday, August 28, 2024. My impressions and recommendations are as follows: Impressions : - LA Grade B reflux esophagitis with no bleeding. Biopsied. - No gross lesions in the gastric body. - Normal first portion of the duodenum. Recommendations : - Discharge patient to home. - Resume previous diet. - Continue present medications. - Await pathology results. My findings are described in the full procedure note, which is enclosed. If I can be of further assistance, please feel free to contact me at . Sincerely, Matthew Wagoner DO 08/28/2024 7:26:29 AM This report has been signed electronically.
--- NOTE | 2024-08-28 07:27 | OP.EGD_ITS ---
Patient Name: Carter Aragon Procedure Date: 08/28/2024 6:40 AM Date of : 1965 Age: 59 Procedure: Upper GI endoscopy Indications: Dysphagia, Heartburn Providers: Matthew Wagoner DO Referring MD: Galdino Goldsmith [facility], Wallboard Worker-c Medicines: Monitored Anesthesia Care Patient Profile: This is a 59 year old male. Refer to note in patient chart for documentation of history and physical. Patient has symptoms of dysphagia with both liquids and solids. The symptoms first began within the past few weeks. His most recent EGD for Cloud's biopsy. Complications: No immediate complications. Procedure: Pre-Anesthesia Assessment: - Prior to the procedure, a History and Physical was performed, and patient medications and allergies were reviewed. The patient is competent. The risks and benefits of the procedure and the sedation options and risks were discussed with the patient. All questions were answered and informed consent was obtained. Patient identification and proposed procedure were verified by the physician in the pre-procedure area. Mental Status Examination: alert and oriented. Airway Examination: normal oropharyngeal airway and neck mobility. Respiratory Examination: clear to auscultation. CV Examination: normal. Prophylactic Antibiotics: The patient does not require prophylactic antibiotics. Prior Anticoagulants: The patient has taken no anticoagulant or antiplatelet agents except for NSAID medication. ASA Grade Assessment: II - A patient with mild systemic disease. After reviewing the risks and benefits, the patient was deemed in satisfactory condition to undergo the procedure. The anesthesia plan was to use monitored anesthesia care (MAC). Immediately prior to administration of medications, the patient was re-assessed for adequacy to receive sedatives. The heart rate, respiratory rate, oxygen saturations, blood pressure, adequacy of pulmonary ventilation, and response to care were monitored throughout the procedure. The physical status of the patient was re-assessed after the procedure. After obtaining informed consent, the endoscope was passed under direct vision. Throughout the procedure, the patient's blood pressure, pulse, and oxygen saturations were monitored continuously. The Colonoscope was introduced through the mouth, and advanced to the second part of duodenum. The upper GI endoscopy was accomplished without difficulty. The patient tolerated the procedure well. Scope In: 7:06:14 AM Scope Out: 7:08:13 AM Total Procedure Duration Time 0 hours 1 minute 59 seconds Findings: LA Grade B (one or more mucosal breaks greater than 5 mm, not extending between the tops of two mucosal folds) esophagitis with no bleeding was found 34 to 40 cm from the incisors. Biopsies were taken with a cold forceps for histology. Biopsies were taken with a cold forceps for histology. Verification of patient identification for the specimen was done. Estimated blood loss was minimal. No gross lesions were noted in the gastric body. The first portion of the duodenum was normal. Impression: - LA Grade B reflux esophagitis with no bleeding. Biopsied. - No gross lesions in the gastric body. - Normal first portion of the duodenum. Recommendation: - Discharge patient to home. - Resume previous diet. - Continue present medications. - Await pathology results. Procedure Code(s): --- Professional --- 39544, Esophagogastroduodenoscopy, flexible, transoral; with biopsy, single or multiple CPT copyright 2021 [employer]. All rights reserved. The codes documented in this report are preliminary and upon director of oncology review may be revised to meet current compliance requirements. Matthew Wagoner DO 08/28/2024 7:26:29 AM This report has been signed electronically. Number of Addenda: 0 Note Initiated On: 08/28/2024 6:40 AM
--- NOTE | 2024-08-28 07:29 | OP.COLON_ITS ---
Patient Name: Carter Aragon Procedure Date: 08/28/2024 7:08 AM Date of : 1965 Age: 59 Procedure: Colonoscopy Indications: Family history of colon cancer in a first-degree relative before age 60 years, Chronic diarrhea Providers: Matthew Wagoner DO Referring MD: Galdino Goldsmith [facility], Facs Teacher-c Medicines: Monitored Anesthesia Care Patient Profile: This is a 59 year old male. Refer to note in patient chart for documentation of history and physical. Patient has symptoms of dysphagia with both liquids and solids. The symptoms first began within the past few weeks. His most recent EGD for Cloud's biopsy. Last Colonoscopy: 5 years ago. Complications: No immediate complications. Procedure: Pre-Anesthesia Assessment: - Prior to the procedure, a History and Physical was performed, and patient medications and allergies were reviewed. The patient is competent. The risks and benefits of the procedure and the sedation options and risks were discussed with the patient. All questions were answered and informed consent was obtained. Patient identification and proposed procedure were verified by the physician in the pre-procedure area. Mental Status Examination: alert and oriented. Airway Examination: normal oropharyngeal airway and neck mobility. Respiratory Examination: clear to auscultation. CV Examination: normal. Prophylactic Antibiotics: The patient does not require prophylactic antibiotics. Prior Anticoagulants: The patient has taken no anticoagulant or antiplatelet agents except for NSAID medication. ASA Grade Assessment: II - A patient with mild systemic disease. After reviewing the risks and benefits, the patient was deemed in satisfactory condition to undergo the procedure. The anesthesia plan was to use monitored anesthesia care (MAC). Immediately prior to administration of medications, the patient was re-assessed for adequacy to receive sedatives. The heart rate, respiratory rate, oxygen saturations, blood pressure, adequacy of pulmonary ventilation, and response to care were monitored throughout the procedure. The physical status of the patient was re-assessed after the procedure. After I obtained informed consent, the scope was passed under direct vision. Throughout the procedure, the patient's blood pressure, pulse, and oxygen saturations were monitored continuously. The Colonoscope was introduced through the anus and advanced to the cecum, identified by appendiceal orifice and ileocecal valve. The colonoscopy was performed without difficulty. The patient tolerated the procedure well. The quality of the bowel preparation was fair. Scope In: 7:10:30 AM Scope Withdrawal Time 0 hours 7 minutes 33 seconds Scope Out: 7:20:26 AM Total Procedure Duration Time 0 hours 9 minutes 56 seconds Findings: The perianal and digital rectal examinations were normal. A few small-mouthed diverticula were found in the recto-sigmoid colon and sigmoid colon. An area of mildly congested mucosa was found in the recto-sigmoid colon, at the hepatic flexure, in the ascending colon and in the cecum. Biopsies were taken with a cold forceps for histology. Verification of patient identification for the specimen was done. Estimated blood loss was minimal. Impression: - Preparation of the colon was fair. - Diverticulosis in the recto-sigmoid colon and in the sigmoid colon. - Congested mucosa in the recto-sigmoid colon, at the hepatic flexure, in the ascending colon and in the cecum. Biopsied. Recommendation: - Discharge patient to home. - Resume previous diet. - Continue present medications. - Await pathology results. - Repeat colonoscopy in 5 years for surveillance. Procedure Code(s): --- Professional --- 78503, Colonoscopy, flexible; with biopsy, single or multiple CPT copyright 2021 [employer]. All rights reserved. The codes documented in this report are preliminary and upon requirements engineer review may be revised to meet current compliance requirements. Matthew Wagoner DO 08/28/2024 7:29:48 AM This report has been signed electronically. Number of Addenda: 0 Note Initiated On: 08/28/2024 7:08 AM
--- NOTE | 2024-08-28 07:30 | OP.CCLET_ITS ---
08/28/[address] [facility], Health Care Assistant-c Re : Colonoscopy procedure for Carter Hernandezr Rupal This procedure was performed on Wednesday, August 28, 2024. My impressions and recommendations are as follows: Impressions : - Preparation of the colon was fair. - Diverticulosis in the recto-sigmoid colon and in the sigmoid colon. - Congested mucosa in the recto-sigmoid colon, at the hepatic flexure, in the ascending colon and in the cecum. Biopsied. Recommendations : - Discharge patient to home. - Resume previous diet. - Continue present medications. - Await pathology results. - Repeat colonoscopy in 5 years for surveillance. My findings are described in the full procedure note, which is enclosed. If I can be of further assistance, please feel free to contact me at . Sincerely, Matthew Wagoner, 08/28/2024 7:29:48 AM This report has been signed electronically.
--- NOTE | 2024-08-28 07:31 | PCM.POST.ANE ---
Anesthesia: Postop Eval I Current Vital Signs Temperature: 97 F Pulse Rate: 75 Blood Pressure: 89/56 Respiratory Rate: 16 Pulse Ox: 100 Oxygen Delivery Method: Room Air Assessment Airway patent: Yes Spontaneous unlabored respirations: Yes Mental status: Asleep nausea: No Vomiting: No Anesthesia Complication: No Fluid Hydration Crystalloid volume administer (ml): 50 Total IV fluid infused: 50 Progress Note Anesthesia document: Postop Eval 1 completed: Yes
--- NOTE | 2024-08-28 07:57 | PCM.POSTANE2 ---
Anesthesia Postop Eval I Sum Postop Eval Completion status Anesthesia document: Postop Eval 1 completed: Yes Anesthesia Postop Eval I Summary Anesthesia Postop Eval I Summary: Anesthesia Postop Eval I: Assessment Summary Airway patent Yes 08/28/24 07:32 [email or web address] Spontaneous unlabored Yes 08/28/24 07:32 [email or web address] respirations Mental status Asleep 08/28/24 07:32 [email or web address] nausea No 08/28/24 07:32 [email or web address] Vomiting No 08/28/24 07:32 [email or web address] Anesthesia Postop Eval I: Fluid Summary Crystalloid volume administer 50 08/28/24 07:32 [email or web address] (ml) Colloids volume administered ( ml) Blood Product volume administered (ml) Total IV fluid infused 50 08/28/24 07:32 [email or web address] Anesthesia Postop Eval I: Summary Notes Anesthesia Complication No 08/28/24 07:32 [email or web address] Anesthesia Complication Comment: Post-operative progress note Anesthesia: Postop Eval II Evaluation Mental status: Awake Pain Level: 0 nausea: No Vomiting: No
== END 2024-08-28 08:12 | disposition home or self-care (01) ==
LOC: EN 05:16 → AC 05:18
PROVIDERS: PCP Nurse Practitioner Family; Referring Provider Nurse Practitioner Family; Visit Provider Internal Medicine Gastroenterology
PROC: 0DJD8ZZ Inspection of Lower Intestinal Tract, Via Natural or Artificial Opening Endoscopic (ICD-10-PCS; CPT 45378; principal; 2024-08-28 06:25)
DX: K21.00 Gastro-esophageal reflux disease with esophagitis, without bleeding (principal); K73.9 Chronic hepatitis, unspecified; Z79.4 Long term (current) use of insulin; E11.9 Type 2 diabetes mellitus without complications; R13.10 Dysphagia, unspecified; K22.70 Barrett's esophagus without dysplasia; K52.9 Noninfective gastroenteritis and colitis, unspecified; I10 Essential (primary) hypertension; K57.30 Diverticulosis of large intestine without perforation or abscess without bleeding; K76.0 Fatty (change of) liver, not elsewhere classified; Z79.84 Long term (current) use of oral hypoglycemic drugs; Z79.85 Long-term (current) use of injectable non-insulin antidiabetic drugs; Z79.899 Other long term (current) drug therapy; Z80.0 Family history of malignant neoplasm of digestive organs
CPT/HCPCS: 45380; 43239; 82962; 88305; 88342; A4216; J2405

== ENCOUNTER → 2024-12-22 | Outpatient (CLI) | payer MEDICAID, OTHER, SELFPAY ==
[2024-12-22 19:19] LABS: BUN 16 mg/dL (4-19); Creatinine, Serum 1.07 mg/dL (0.70-1.20); EST Glomerular Filtration Rate 81 (>60)
== END | disposition home or self-care (01) ==
PROVIDERS: PCP Nurse Practitioner Family; Referring Provider Surgery Vascular Surgery; Visit Provider Surgery Vascular Surgery
DX: I71.43 Infrarenal abdominal aortic aneurysm, without rupture (principal); E11.9 Type 2 diabetes mellitus without complications; I77.1 Stricture of artery; K21.9 Gastro-esophageal reflux disease without esophagitis; R10.13 Epigastric pain
CPT/HCPCS: 36415; 82565; 84520

== ENCOUNTER → 2025-01-04 | Outpatient (CLI) | payer MEDICAID, OTHER, SELFPAY ==
--- NOTE | 2025-01-04 16:06 | CT_ITS ---
PROCEDURE: CTA ABD/PELVIS W/WO CONTRAST 01/04/2025 REASON FOR EXAM: INFRARENAL AAA *STENT GRAFT PROTOCOL* TECHNIQUE: CTA ABD/PELVIS W/WO CONTRAST Multiplanar Sagittal and Coronal images were obtained. CONTRAST: Isovue 3 7 VOLUME: 100 mL One or more dose reduction techniques were used (e.g., Automated exposure control, adjustment of the mA and/or kV according to patient size, use of iterative reconstruction technique). RADIATION DOSE SUMMARY: CTDlvol: 17.3 mGy DLP: 2960.63 mGycm COMPARISON: Prior study dated July 10, 2021. FINDINGS: Aorta: Minimal atherosclerotic plaques of the infrarenal abdominal aorta. No evidence of stenosis. Iliac Arteries: Unremarkable Celiac: Unremarkable SMA: Unremarkable JAIMIE : Unremarkable Right Renal: Unremarkable Left Renal: Unremarkable Extravascular Findings: Coronary artery calcification. Patient is status post cholecystectomy. Findings suggestive of fatty infiltration of the liver. The pancreas is unremarkable. Tiny nonobstructive left intrarenal calculi. Scattered sigmoid diverticula. Heterogeneous enlargement of the prostate. CT/CTA Abd/Pelvis W/WO Contrast IMPRESSION: No significant atherosclerotic calcification of the aorta, common iliac arterie s or major visceral branches. Fatty infiltration of the liver. Status post cholecystectomy. Tiny nonobstructive left intrarenal calculi. Reading Location: [id number]
== END | disposition home or self-care (01) ==
LOC: CT 15:58
PROVIDERS: PCP Nurse Practitioner Family; Referring Provider Surgery Vascular Surgery; Visit Provider Surgery Vascular Surgery
DX: R10.13 Epigastric pain (principal); E11.9 Type 2 diabetes mellitus without complications; K21.9 Gastro-esophageal reflux disease without esophagitis; I77.1 Stricture of artery; I71.43 Infrarenal abdominal aortic aneurysm, without rupture
CPT/HCPCS: 74174; Q9967

== ENCOUNTER → 2025-02-23 | Outpatient (CLI) | payer MEDICAID, OTHER, SELFPAY ==
[2025-02-23 18:49] LABS: AST(SGOT) 29 U/L (<=37); Alanine Aminotransfer ALT/SGPT 36 U/L (<=46); Albumin, Serum 4.1 g/dL (3.5-5.0); Alkaline Phosphatase 77 U/L (40-129); Anion Gap 12 (5-15); BUN 10 mg/dL (4-19); BUN/Creat Ratio 10.9 RATIO (10-20); Calcium,Total 9.4 mg/dL (7.6-11.0); Carbon Dioxide 22.7 mmol/L (21.0-32.0); Chloride 102 mmol/L (98-108); Cholesterol 181 mg/dL (<=200); Globulin 3.2 g/dL (2.2-4.2); Glucose 178 mg/dL (70-99); Low Density Lipoprotein Calc. 107 mg/dL; Potassium 4.3 mmol/L (3.3-5.1); Triglycerides 134 mg/dL; Very Low Density Lipoprotein 27 mg/dL (5-40); cholesterol:hdl ratio screen 3.83
== END | disposition home or self-care (01) ==
LOC: LAB 17:55
PROVIDERS: PCP Nurse Practitioner Family; Referring Provider Nurse Practitioner Family; Visit Provider Nurse Practitioner Family
DX: E78.5 Hyperlipidemia, unspecified (principal)
CPT/HCPCS: 36415; 80053; 80061

== ENCOUNTER 2025-04-14 20:53 | Emergency (ER) | payer OTHER, SELFPAY ==
--- NOTE | 2025-04-14 11:19 | CT_ITS ---
PROCEDURE: CT CHEST, ABD, PEL W/CONTRAST 04/14/2025 REASON FOR EXAM: TRAUMA/FALL, LEFT SIDED RIB AND ABD PAIN TECHNIQUE: Chest, abdomen and pelvis CT with intravenous contrast. Coronal and Sagittal reconstruction series were provided. One or more dose reduction techniques were used (e.g., Automated exposure control, adjustment of the mA and/or kV according to patient size, use of iterative reconstruction technique. PATIENT PREPARATION: Per protocol ORAL CONTRAST TYPE: None. CONTRAST: Isovue-300 50 VOLUME: 100 ccmL RADIATION DOSE SUMMARY: CTDlvol: 16.5 mGy DLP: 630 mGycm COMPARISON: Chest radiograph on 04/14/2025. CT scan on 01/04/2025. FINDINGS: Acute oblique nondisplaced fractures in the axillary portions of the left 7th and 8th ribs. Minimal left pleural effusion. Passive atelectatic airspace disease of the left lower lobe. Hepatomegaly with hepatic steatosis. Prior cholecystectomy. Mild diffuse spondylosis. Left renal nonobstructing stones with the largest measuring 5 mm, unchanged. Normal enhancement of the main pulmonary artery and right and left pulmonary arteries. Normal enhancement of the bilateral peripheral pulmonary arteries. There is no demonstrated pulmonary embolism. Normal thoracic aorta and visualized great vessels. There is no demonstrated aortic dissection. Normal heart and pericardium. Normal mediastinum. Normal hilar regions. Normal visualized trachea and bronchi. Normal extrahepatic biliary system. Normal spleen. Normal pancreas. Normal bilateral adrenal glands. Normal size of the right kidney. There is no right renal mass. There are no right renal calculi. There is no right hydronephrosis. Normal visualized right ureter. Normal size of the left kidney. There is no left renal mass. There is no left hydronephrosis. Normal visualized left ureter. Normal visualized stomach. Normal small intestine. Normal colon. The appendix is visualized and appears normal. There is no demonstrated peritoneal fluid. Normal abdominal aorta. Normal inferior vena cava. Normal retroperitoneum. Normal urinary bladder. There is no pelvic mass lesion or lymphadenopathy. There is no pelvic fluid. Fat containing left inguinal hernia without incarceration. Mild prostatomegaly. CT/CT Chest, Abd, Pel w/Contrast IMPRESSION: Acute oblique nondisplaced fractures in the axillary portions of the left 7th a nd 8th ribs. Minimal left pleural effusion. Passive atelectatic airspace disease of the left lower lobe. Hepatomegaly with hepatic steatosis. Prior cholecystectomy. Mild diffuse spondylosis. Left renal nonobstructing stones with the largest measuring 5 mm, unchanged. Reading [facility]
[2025-04-14 20:54] VITALS: BP 197/113; PULSE 101; RESP 40; TEMP 36.8; O2SAT 100; BMI 30.9
[2025-04-14 21:58] VITALS: BP 206/105; PULSE 93; RESP 18; O2SAT 96
[2025-04-14] MEDS: fentaNYL 100 MCG/2 ML Ampul 50 MCG IV (22:04)
[2025-04-14 22:08] LABS: Hematocrit 44.9 % (40-54); Hemoglobin 15.5 g/dL (13.0-16.5); Immature Granulocytes Count 0.050 X10^3/uL (0.0-0.0); Mean Corp Hgb Conc 34.5 g/dL (32-36); Mean Corpuscular Volume 88.7 fL (80-94); Mean Platelet Vol. 10.5 fl (6.2-12.0); NRBC Flagged by Analyzer 0 % (0-5); Platelet Count 230 K/mm3 (150-450); RBC Distribution Width CV 12.8 % (11.6-14.6); RBC Distribution Width SD 41.5 fl (35.1-43.9); Red Blood Count 5.06 M/mm3 (4.6-6.2); White Blood Count 9.2 K/mm3 (4.4-11.0)
--- NOTE | 2025-04-14 22:11 | RAD_ITS ---
EXAM: XR Chest, 1 View CLINICAL INDICATION: FALL, LEFT SIDED RIBS PAIN TECHNIQUE: Frontal view of the chest. COMPARISON: No relevant prior studies available. FINDINGS: LUNGS AND PLEURAL SPACES: Pulmonary venous congestion. No consolidation. No pneumothorax. HEART: Unremarkable. No cardiomegaly. MEDIASTINUM: Unremarkable. Normal mediastinal contour. BONES/JOINTS: Unremarkable. No acute fracture. RAD/Chest 1 View (Portable) IMPRESSION: Pulmonary venous congestion. Reading Location: [id number]
[2025-04-14 22:26] LABS: AST(SGOT) 40 U/L (<=37); Alanine Aminotransfer ALT/SGPT 70 U/L (<=46); Albumin, Serum 4.2 g/dL (3.5-5.0); Alkaline Phosphatase 75 U/L (40-129); Anion Gap 11 (5-15); BUN 14 mg/dL (4-19); BUN/Creat Ratio 13.9 RATIO (10-20); Calcium,Total 9.9 mg/dL (7.6-11.0); Carbon Dioxide 26.9 mmol/L (21.0-32.0); Chloride 98 mmol/L (98-108); Estimated Creatinine Clearance 94.39 ml/min (50-250); Globulin 3.0 g/dL (2.2-4.2); Glucose 330 mg/dL (70-99); Potassium 4.9 mmol/L (3.3-5.1)
[2025-04-14] MEDS: 0.9% Normal Saline (1000mL) 1,000 ML 125 ML IV (22:36)
[2025-04-14 22:48] LABS: Mucous, Urine 0 SEEN /hpf (<or=2+); Red Blood Cells-Urine 0 SEEN /hpf (0-5); Squamous Epithelial Cells - UA 0 SEEN /hpf (0-5)
[2025-04-14] MEDS: HYDROmorphone 0.5 MG/0.5 ML SYRINGE IV (23:00)
[2025-04-14 23:01] VITALS: BP 173/106; PULSE 95; RESP 16; O2SAT 94
[2025-04-14 23:21] LABS: Color, Urine Yellow (Yellow); Glucose, Dipstick 1000 mg/dl (Normal); Ketone-Dipstick Negative (Negative); Leukocyte Esterase-Dipstick Negative /ul (Negative); Nitrite-Dipstick Negative (Negative); Occult Blood-Urine Negative /ul (Negative); Protein-Dipstick 30 mg/dl (Negative); Specific Gravity, Urine 1.025 (1.002-1.030); Urine Bilirubin Dipstick Negative (Negative)
--- NOTE | 2025-04-14 23:46 | ED.VIS.FALL ---
HPI HPI - Fall History of Present Illness Chief Complaint: Fall Informant: patient Narrative Narrative: Patient is a 60-year-old male with a history of DM presenting with left rib pain and dyspnea following a fall. - Fall occurred approximately 30 minutes prior to arrival. - Patient was working on top of a combine inside a shed, attempting to change a light bulb. - Stepped onto a 2x4 along the wall, which snapped, causing a fall of approximately 10-12 feet. - Landed on boards across the wall, impacting the left rib cage. - Reports significant pain in the left rib area and difficulty breathing. - Denies head or neck injury. - Sustained a minor abrasion on one leg but reports no other injuries to arms or legs. - Able to ambulate without difficulty. - Denies use of anticoagulants. - Medical history includes DM, managed with metformin and insulin. [facility] Medical History Chest pain Shortness of breath on exertion History of hiatal hernia Barretts esophagus Fatty liver Insulin dependent diabetes mellitus Syncope History of echocardiogram Difficulty swallowing Abdominal pain Diarrhea Depression Restless legs Dietary restriction Gastric reflux Non-smoker Leg cramps History of stress test Hypertension Epigastric abdominal pain Altered bowel function Generalized abdominal pain Abdominal aortic aneurysm without rupture Prostatitis UTI (urinary tract infection) GERD (gastroesophageal reflux disease) Type 2 diabetes mellitus Home Medications ?Medication ?Instructions ?Recorded ?Last Taken ?Type pen needle, diabetic 32 gauge x #100 ea 07/19/22 Unknown Rx (BD Ultra-Fine Perla Pen Needle) omeprazole 20 mg capsule,delayed 20 mg PO BID #60 caps 03/07/23 08/27/24 Rx release blood-glucose sensor (FreeStyle #2 ea 10/04/23 Unknown Rx Heron 3 Sensor device) cinnamon bark 500 mg capsule 2,000 mg PO BID 01/10/24 08/27/24 History Gluco Control 1 tab PO DAILY 01/24/24 08/27/24 History apple cider vinegar 600 mg capsule 600 mg PO DAILY 01/24/24 08/27/24 History glipizide 10 mg tablet 10 mg PO DAILY #90 tabs 02/18/24 08/27/24 Rx metformin 500 mg tablet 1,000 mg (2 x 500 mg) PO BID dm 11/01/24 02/13/25 Rx #180 tabs insulin glargine 100 unit/mL (3 30 unit subcut QDAY 07/23/24 08/27/24 History mL) subcutaneous pen (Lantus Solostar U-100 Insulin) tirzepatide 2.5 mg/0.5 mL 2.5 mg subcut TH 07/23/24 08/21/24 History subcutaneous pen injector (Ashishundilanro) oxycodone-acetaminophen 5 mg-325 1 tab PO Q6H PRN PRN Pain 4 days 04/15/25 Unknown Rx mg tablet #15 TABLETS Allergy/AdvReac Type Severity Reaction Status Date / Time No Known Allergies Allergy Verified 04/14/25 20:56 Family History Grandmother Breast cancer Father Cancer Pancreatic cancer Brother Diabetes Mother Heart disease Surgical History History of esophagogastroduodenoscopy History of esophagogastroduodenoscopy (EGD) Hx of colonoscopy S/P bilateral inguinal hernia repair History of nasal surgery History of laparoscopic cholecystectomy History of right knee surgery Social History Smoking Status: Never smoker alcohol intake: never substance use type: does not use ROS ROS ED Constitutional Constitutional ED: Denies chills or fever(s) Eyes Eyes: Denies change in vision or diplopia ENT ENT ED: Denies rhinorrhea or sore throat Cardiovascular Cardiovascular: Reports chest pain; Denies palpitations Respiratory/Chest Respiratory/Chest: Reports dyspnea; Denies cough Gastrointestinal Gastrointestinal: Reports abdominal pain; Denies diarrhea, nausea or vomiting Genitourinary Genitourinary ED: Denies dysuria or hematuria Musculoskeletal Musculoskeletal: Denies back pain or neck pain Integumentary Reports Abrasions; Denies abscess or rash Neurologic Neurologic: Denies headache(s), paresthesias or weakness Psychiatric Psychiatric: Denies anxiety or suicidal thoughts EXAM Physical Exam Const Vital Signs: 04/14/25 20:54 04/14/25 21:43 04/14/25 21:58 Temperature 98.2 F Temperature Source Oral Pulse Rate 101 H 93 Respiratory Rate 40 H 18 Respiratory Effort Short of Breath Splinting Respiratory Depth Shallow Respiratory Pattern Tachypnea Blood Pressure 197/113 H 206/105 H Blood Pressure Mean 141 138 Pulse Ox 100 96 Oxygen Delivery Method Room Air Room Air Room Air 04/14/25 23:01 04/15/25 00:42 04/15/25 00:47 Temperature Temperature Source Pulse Rate 95 97 100 Respiratory Rate 16 Respiratory Effort Respiratory Depth Respiratory Pattern Blood Pressure 173/106 H 140/88 H Blood Pressure Mean 128 105 Pulse Ox 94 Oxygen Delivery Method Room Air Positive well nourished and well developed General Appearance ED: well developed and NAD HEENT Reports moist mucous membranes normocephalic and atraumatic Eyes PERRL and EOMs intact bilaterally Neck full ROM and supple Resp normal respiratory effort and clear to auscultation bilaterally Resp Narrative: Equal breath sounds bilaterally; very tender throughout the left rib cage, mostly the mid and lower ribs; no crepitus, flail chest, subcutaneous emphysema, or obvious deformity; no sternal tenderness or right-sided tenderness. Cardio regular rate, regular rhythm and no murmurs GI GI Narrative: Very tender throughout the left upper quadrant; no rebound tenderness or guarding; no objective signs of trauma. Auscultation: normoactive bowel sounds Palpation: soft Back/Spine no CVA tenderness General Back: other FROM Extremity normal to inspection General Extremety ED: Negative for edema, pulses abnormal or tenderness General Extremity: Negative for edema or pulses abnormal Neuro oriented x3, CN's II-XII intact bilaterally and no sensory deficits noted Raquel Coma Scale: document GCS findings Spontaneous Obeys Commands Oriented 15 Sensorium / Orientation: awake and alert Motor Exam: strength 5/5 throughout Psych mental status grossly normal and thought process normal Skin no rashes or lesions noted and no wounds MDM MDM MDM Narrative Medical decision making narrative: We will provide pain and nausea control and initially obtain a portable chest X-ray. If it does not show a pneumothorax, we will send him for a CT of the abdomen, pelvis, and chest to evaluate for intra-abdominal organ injury, pulmonary contusion, medial spinal injury, or occult rib fracture. A stat portable, one-view chest X-ray, based on my interpretation, shows no obvious displaced rib fractures or pneumothorax. In addition to providing more analgesics, which he is requesting, we are sending him for a CT of the chest, abdomen, and pelvis with IV contrast to further evaluate for internal injuries. I reviewed the CT of the patient?s chest, abdomen, and pelvis. From my interpretation, there appears to be a single rib fracture in the area of the left upper quadrant, which would explain his pain and tenderness. I do not see any intra-abdominal organ injury. There may be a small amount of hemothorax versus atelectasis, but I do not see a pneumothorax or any indication for thoracostomy. After several doses of analgesics and re-evaluation, he is feeling much better. The anticipated plan includes a prescription for oxycodone, an incentive spirometer with instructions for use, and close outpatient follow-up. Lab Data Attestation: I reviewed the patient's lab results. Labs: Laboratory Results - last 24 hr 04/14/25 04/14/25 21:35 22:40 WBC 9.2 RBC 5.06 Hgb 15.5 Hct 44.9 MCV 88.7 MCH 30.6 MCHC 34.5 RDW Std Deviation 41.5 RDW Coeff of Maria Del Rosario 12.8 Plt Count 230 MPV 10.5 Immature Gran % (Auto) 0.500 Neut % (Auto) 51.3 Lymph % (Auto) 36.9 Mccreary % (Auto) 9.4 Eos % (Auto) 1.2 Baso % (Auto) 0.7 Absolute Neuts (auto) 4.7 Absolute Lymphs (auto) 3.40 Nucleated RBC % 0 Sodium 136 Potassium 4.9 Chloride 98 Carbon Dioxide 26.9 Anion Gap 11 BUN 14 Creatinine 1.00 Estim Creat Clear Calc 94.39 Est GFR (MDRD) Non-Af 87 BUN/Creatinine Ratio 13.9 Glucose 330 H Calcium 9.9 Total Bilirubin 1.04 AST 40 H ALT 70 H Alkaline Phosphatase 75 Total Protein 7.2 Albumin 4.2 Globulin 3.0 Albumin/Globulin Ratio 1.4 Urine Color Yellow Urine Clarity Clear Urine pH 6.0 Ur Specific Brewster 1.025 Urine Protein 30 H Urine Glucose (UA) 1000 H Urine Ketones Negative Urine Occult Blood Negative Urine Nitrite Negative Urine Bilirubin Negative Urine Urobilinogen Normal Ur Leukocyte Esterase Negative Urine RBC 0 SEEN Urine WBC 0 SEEN Ur Squamous Epith Cells 0 SEEN Urine Bacteria 0 SEEN Urine Mucus 0 SEEN Radiography Diagnostic Testing: Clinical Impression(s) from Imaging Studies Chest X-Ray 04/14/25 22:11 IMPRESSION: Pulmonary venous congestion. Reading Location: [facility] Rhythm Strip Rhythm Strip: Sinus Rhythm Rate: 100 Ectopy: None Discharge Plan Triage Chief Complaint: Fall ED Provider: Arnold Najera Dx/Rx/DC Orders Clinical Impression: Left rib fracture, Fall from height of greater than 3 feet Instructions: Using an Incentive Spirometer, ED Rib Fracture Prescriptions: New oxycodone-acetaminophen 5-325 mg tablet 1 tab PO Q6H PRN PRN (Reason: Pain) 4 Days Qty: 15 0RF No Action (DME) FreeStyle Heron 3 Sensor Device See Rx Instructions .Route Qty: 2 5RF Rx Instructions: 1 sensor q 14 days apple cider vinegar 600 mg capsule 600 mg PO DAILY Gluco Control 1 tab PO DAILY cinnamon bark 500 mg capsule 2,000 mg PO BID insulin glargine [Lantus Solostar U-100 Insulin] 100 unit/mL (3 mL) insulin pen 30 unit subcut QDAY Rx Instructions: 30 UNITS IN AM 15 UNITS IN QHS Mounjaro 2.5 mg/0.5 mL pen injector 2.5 mg subcut TH Rx Instructions: for 4 weeks (DME) pen needle, diabetic [BD Ultra-Fine Perla Pen Needle] 32 gauge x 5/32 needle See Rx Instructions .Route Qty: 100 5RF Rx Instructions: daily omeprazole 20 mg capsule,delayed release(DR/EC) 20 mg PO BID Qty: 60 1RF glipizide 10 mg tablet 10 mg PO DAILY Qty: 90 1RF metformin 500 mg tablet 1,000 mg PO BID Qty: 180 1RF Primary Care Provider: Galdino Goldsmith Referrals: Galdino Goldsmith, PLASTIC SURGEON-C [Primary Care Provider, Family Practice] - 5-7 Days Print Language: [place] Disposition Disposition: Home, Self Care
--- NOTE | 2025-04-15 00:36 | ED.RN ---
called to inquire about CT scan
[2025-04-15 00:42] VITALS: PULSE 97
[2025-04-15 00:47] VITALS: BP 140/88; PULSE 100
[2025-04-15 02:16] VITALS: BP 138/97
== END 2025-04-15 02:52 | disposition home or self-care (01) ==
PROVIDERS: Emergency Provider Emergency Medicine; PCP Nurse Practitioner Family; Visit Provider Emergency Medicine
DX: S22.32XA Fracture of one rib, left side, initial encounter for closed fracture (principal); E11.9 Type 2 diabetes mellitus without complications; Z79.4 Long term (current) use of insulin; Z79.84 Long term (current) use of oral hypoglycemic drugs; S80.819A Abrasion, unspecified lower leg, initial encounter; I10 Essential (primary) hypertension; K21.9 Gastro-esophageal reflux disease without esophagitis; W17.89XA Other fall from one level to another, initial encounter
CPT/HCPCS: 71045; 71260; 74177; 80053; 81001; 85025; 96361; 96374; 96375; 99283; Q9967; J2405

== ENCOUNTER → 2025-04-20 | Outpatient (CLI) | payer OTHER, SELFPAY ==
--- NOTE | 2025-04-20 10:00 | RAD_ITS ---
EXAM: XR Left Foot Complete, 3 or More Views CLINICAL INDICATION: PAIN IN LEFT FOOT TECHNIQUE: Frontal, lateral and oblique views of the left foot. COMPARISON: No relevant prior studies available. FINDINGS: BONES/JOINTS: See below. SOFT TISSUES: Soft tissue swelling without acute fracture. RAD/Foot min 3 Views IMPRESSION: 1. Soft tissue swelling without acute fracture. 2. If symptoms persist, further evaluation with CT is recommended. Reading Location: [id number]
--- NOTE | 2025-04-20 10:00 | RAD_ITS ---
EXAM: XR Left Foot Complete, 3 or More Views CLINICAL INDICATION: PAIN IN LEFT FOOT TECHNIQUE: Frontal, lateral and oblique views of the left foot. COMPARISON: No relevant prior studies available. FINDINGS: BONES/JOINTS: See below. SOFT TISSUES: Soft tissue swelling without acute fracture. RAD/Foot min 3 Views IMPRESSION: 1. Soft tissue swelling without acute fracture. 2. If symptoms persist, further evaluation with CT is recommended. Reading Location: [id number]
== END | disposition home or self-care (01) ==
LOC: RAD 09:49
PROVIDERS: PCP Nurse Practitioner Family; Referring Provider Nurse Practitioner Family; Visit Provider Nurse Practitioner Family
DX: M79.672 Pain in left foot (principal)
CPT/HCPCS: 73630

== ENCOUNTER → 2025-07-05 | Outpatient (CLI) | payer OTHER, SELFPAY ==
[2025-07-05 10:45] LABS: Cholesterol 206 mg/dL (<=200); Low Density Lipoprotein Calc. 126 mg/dL; Triglycerides 214 mg/dL; Very Low Density Lipoprotein 43 mg/dL (5-40); cholesterol:hdl ratio screen 4.90
[2025-07-05 10:58] LABS: AST(SGOT) 38 U/L (<=37); Alanine Aminotransfer ALT/SGPT 60 U/L (<=46); Albumin, Serum 4.2 g/dL (3.5-5.0); Alkaline Phosphatase 92 U/L (40-129); Anion Gap 9 (5-15); BUN 14 mg/dL (4-19); BUN/Creat Ratio 14.1 RATIO (10-20); Calcium,Total 9.6 mg/dL (7.6-11.0); Carbon Dioxide 26.9 mmol/L (21.0-32.0); Chloride 98 mmol/L (98-108); Globulin 3.3 g/dL (2.2-4.2); Glucose 275 mg/dL (70-99); Potassium 5.0 mmol/L (3.3-5.1)
== END | disposition home or self-care (01) ==
PROVIDERS: PCP Nurse Practitioner Family; Referring Provider Nurse Practitioner Family; Visit Provider Nurse Practitioner Family
DX: S22.32XA Fracture of one rib, left side, initial encounter for closed fracture (principal); E11.65 Type 2 diabetes mellitus with hyperglycemia; E78.5 Hyperlipidemia, unspecified
CPT/HCPCS: 36415; 80053; 80061; 83036